=== PATIENT | female | born 1935 | race Hispanic/Latino ===

== ENCOUNTER 2024-10-20 20:00 | Emergency (ER) | payer OTHER, SELFPAY ==
[2024-10-20 20:06] VITALS: BP 186/88
[2024-10-20 21:36] LABS: % Basophils 0.4 % (0-2); % Eosinophils 0.8 % (0-6); % Immature Granulocytes 0.4 % (0-0.5); % Lymphocytes 21.8 % (20.5-51.1); % Monocytes 6.6 % (1.7-9.3); Absolute Eosinophils 0.1 10^3/uL (0-0.7); Absolute Lymphocytes 2.3 10^3/uL (1.2-3.4); Absolute Monocytes 0.7 10^3/uL (0.1-0.6); Absolute Neutrophils 7.4 10^3/uL (1.4-6.5); Hematocrit 27.1 % (37.0-47.0); Mean Corp Hgb Conc. 33.2 g/dL (33.0-37.0); Mean Corpuscular Hgb 27.4 pg (27.0-31.0); Mean Corpuscular Volume 82.4 fL (81.0-99.0); Mean Platelet Volume 10.5 fL (7.4-10.4); Nucleated Red Blood Cells % 0 %; Platelet Count 353 10^3/uL (130-400); Red Blood Cell Count 3.29 10^6/uL (4.20-5.40); Red Cell Dist. Width 13.2 % (11.5-14.5); White Blood Cell Count 10.6 10^3/uL (4.8-10.8)
[2024-10-20 21:41] LABS: APTT 28.3 Sec (23.4-35.0); INR 0.81; PT 11.7 Sec (11.4-14.6)
--- NOTE | 2024-10-20 23:48 | ED.GENMED ---
History of Present Illness
General
Chief Complaint: Rectal Bleeding
Source: patient
Exam Limitations: none
Time Seen by Provider: 10/20/24 23:11
History of Present Illness
History of Present Illness:
This is a 89 year old female that is brought in by family with c/o abd pain. Granddaughter who is interpreting states that 2 weeks ago she had blood in her stool. States that then today she vomited. States that she has just not felt herself. States
that she felt SOB, had abd pain, nausea, vomiting, diarrhea, headache, dizziness. Denies any fever, chills, chest pain, urinary burning.
Past History
Past History
ED Past Medical History: Asthma, Cancer (Leukemia), GERD, HTN, Hypercholesterolemia, NIDDM, Hypothyroidism, Psychiatric (Depression. Schizophrenia) and Other (Alzheimer's, GI bleeding, UTI, back pain, )
ED Past Surgical History: Other (EYE SURGERY)
Social History
Tobacco: Non-smoker
Alcohol: None
Drug: None
Personal:
Living: with family
Employment: Not employed
Family History
Family History: Diabetes
Review of Systems
Review of Systems
Other source history: family
All Other Systems: ROS reviewed and negative except as documented in HPI and ROS
Constitutional: Reports no symptoms; Denies fever or chills
EENT: Reports no symptoms
Respiratory: Reports trouble breathing; Denies cough
Cardiac: Reports no symptoms; Denies chest pain
ABD/GI: Reports abdominal pain, nausea, vomiting and diarrhea
: Reports no symptoms; Denies dysuria, frequency or urgency
Musculoskeletal: Reports no symptoms
Skin: Reports no symptoms
Neurological: Reports dizzy and headache
Psychiatric: Reports no symptoms
Phy Exam
General Physical Exam
General Presentation: no apparent distress
General age: appears stated age
General Skin: warm and dry
General Habitus: elderly
General Mental: alert
General Hydration: appears well hydrated
ENT Exam
ENT Exam: TM's normal, pharynx normal and neck supple
Eye Exam
Eye Exam: EOMI
Cardiovascular Exam
Cardiovascular Exam: regular rate/rhythm, no edema and normal peripheral pulses
Pulmonary Exam
Pulmonary Exam: lungs clear, no respiratory distress, no rales, chest non tender, no crackles, no rhonchi, no wheezing and no cough
Gastrointestinal Exam
Gastrointestinal Exam: normal bowel sounds, soft, no organomegaly, no pulsatile mass, non distended, tender (Generalized tenderness with palpation) and other (Stool black hem positive. )
Musculoskeletal Exam
Musculoskeletal Exam: full ROM and no edema
Skin Exam
Skin Exam: normal color, warm/dry, no rash and no petechia
Psychiatric Exam
Psychiatric Exam: normal mood/affect
Course
Orders/Labs/Results
Orders:
Orders
10/20/24 20:10
EKG [Electrocardiogram (*1)] Urgent
Reason for Study: Other
Other Reason for Exam: gi bleed
EKG- Treatment ONCE
10/20/24 21:02
Complete Blood Count/With Diff Urgent
PTT Urgent
Prothrombin Time Urgent
10/20/24 23:31
Type+Screen Urgent
BBK Wristband Number:
Comprehensive Metabolic Panel Urgent
10/20/24 23:48
Urinalysis Reflex To Culture Urgent
Date Specimen was Collected: 10/21/24
Time Specimen was Collected: 01:13
10/20/24 23:49
0.9% Sodium Chloride 500 ml [Nss] 500 ml IV BOLUS
10/20/24 23:53
Pantoprazole [Protonix IV] 80 mg IV NOW STA
10/21/24 00:00
CT Abd/pelvis W Iv Cont Urgent
Reason For Exam: Generalized abd pain
10/21/24 01:26
Urine Microscopic Reflex Cult Urgent
Urine Culture Urgent
DONAVAN Source: U
Specimen Description:
Date Specimen was Collected: 10/21/24
Time Specimen was Collected: 01:13
10/21/24 01:57
Amoxicillin 875 mg/Clav 125 mg [Augmentin 875 mg/125 mg] 1 tablet PO NOW STA
Abnormal Lab Results
10/20/24 10/20/24 10/21/24
21:02 23:31 01:26
RBC 3.29 L 10^6/uL
(4.20-5.40)
Hgb 9.0 L g/dL
(12.0-16.0)
Hct 27.1 L %
(37.0-47.0)
MPV 10.5 H fL
(7.4-10.4)
Absolute Neuts (auto) 7.4 H 10^3/uL
(1.4-6.5)
Absolute Monos (auto) 0.7 H 10^3/uL
(0.1-0.6)
Glucose 163 H mg/dl
(70-99)
Leukocyte Esterase Rfl 2+ A
(Negative)
Urine WBC (Reflex) 21-25 A /HPF
(0-5)
Urine Bacteria (Reflex) Moderate A
(Negative)
Urine Albumin (Reflex) 1+ A
(Neg - Trace)
10/20/24 21:02
10/20/24 23:31
H/H low when compared with prior labs that were done in 2022, P1 11.7 with INR 0.81, PTT 28.3
Vital Signs
Initial and Last Documented VS:
Initial Vital Signs
Temp Pulse Resp BP Pulse Ox
98.2 F 92 16 186/88 98
10/20/24 20:06 10/20/24 20:06 10/20/24 20:06 10/20/24 20:06 10/20/24 20:06
Last Documented Vital Signs
Temp Pulse Resp BP Pulse Ox
98.7 F 108 17 152/88 95
10/21/24 02:23 10/21/24 02:23 10/21/24 02:23 10/21/24 02:23 10/21/24 02:23
MDM/Problems Addressed
Differential Diagnosis Includes:
Colitis. Gi bleeding. Diverticulitis.
MDM/Problems Addressed:
This is a 89 year old female that is brought in by family with c/o abd pain and just not feeling herself. States that 2 weeks ago she had blood in her stool. Then today she vomited and has had diarrhea, headache and dizziness.
Will check labs. CT scan. Will given Protonix.
back into see patient and granddaughter. Explained that the CT shows that she has diverticulitis. Will place patient on Augmentin. Will also give patient Protonix to help with any stomach irritation as the granddaughter state that she uses Advil or
Ibuprofen a lot. Encouraged them to only use Tylenol and follow up with the family doctor and her GI specialist for further evaluation. Patient to return with increased bleeding, abd pain, or any other concerns.
Chronic conditions affecting care: DM and Cancer
Acute Exacerbation and/or Progression of Chronic Illness:
GI bleeding
*Radiology
Radiology exam reviewed: radiology read reviewed (CT night hawk- Mild acute diveritculitis in the inferior descending colon. No perforation or abscess. Normal appendix. No calcified gallstones. No bowel obstruction or bowel wall thickening. No
obstructive urolithiasis. No free fluid nor free air. )
*Pulse Oximetry
Patient hypoxic: no
*EKG
Interpreted by ED Provider?: Yes
Heart Rate: 102
Rate: tachycardiac
Rhythm: sinus
Stratton: left axis deviation
Interval: normal interval
QRS Pattern: normal QRS
Ischemia: no ischemia
*State Attorney Interpretation
Rate: State Attorney- N/A
*Critical Care Note
Total Time (30-74mins, 75-104mins- exclusive of procedures): Not Applicable
ED Attending Note
-
Portions of this chart may have been created with voice recognition software.� Occasional wrong word or��sound alike� substitutions may have occurred due to the inherent limitations of voice recognition software.
Discharge Plan
Departure
Patient Disposition: Home (Routine Discharge)
Date of Disposition: 10/21/24
Time of Disposition: 02:02
Patient with high blood pressure during this ER visit?: Yes
Condition: Good
Covid-19: Not Applicable
Discharge Problem:
Diverticulitis, Hematest positive stools
Instructions: Bloody Stools, Adult ED, Diverticulitis - Discharge instructions, BLOOD PRESSURE
Prescriptions:
New
amoxicillin-pot clavulanate 875-125 mg tablet
1 tab PO BID Qty: 19 0RF
pantoprazole [Protonix] 40 mg tablet,delayed release (DR/EC)
40 mg PO DAILY Qty: 30 0RF
No Action
insulin glargine [Lantus U-100 Insulin] 100 UNITS/1 ML solution
10 units SC HS
Patient Comments:
hold less than 150
divalproex 500 MG tablet,delayed release (DR/EC)
500 mg PO HS
acetaminophen 325 MG tablet
650 mg PO DAILYPRN PRN (Reason: mild pain)
risperidone 2 MG tablet
2 mg PO HS
metformin 1,000 MG tablet
1,000 mg PO BID@0800,1700
fluticasone propion-salmeterol 1 DISK blister with device
1 puff inhalation R BID
albuterol sulfate 1 PUFF HFA aerosol inhaler
2 puff inhalation R Q4HPRN PRN (Reason: sob)
risperidone 1 MG tablet
1 mg PO DAILY
levothyroxine 25 MCG tablet
25 mcg PO DAILY AT 0700 Qty: 30 0RF
albuterol sulfate 2.5 MG/3 ML solution for nebulization
2.5 mg inhalation R Q4HPRN PRN (Reason: SOB/wheeze)
acetaminophen [Tylenol Arthritis] 650 MG tablet extended release
650 mg PO HS
furosemide 20 MG tablet
10 mg PO DAILY 0RF
cephalexin 500 mg capsule
500 mg PO BID 7 Days Qty: 14 0RF
amoxicillin-pot clavulanate 875-125 mg tablet
1 tab PO BID Qty: 20 0RF
Referrals:
Raj Holt MD [Family Provider] - Follow up in 2-3 days
Activity Restrictions/Additional Instructions:
As discussed, your blood work shows that your Hemiglobin is a little low. Your CT shows that you have Diverticulitis. You have been given an antibiotic here and a prescription has been sent to your pharmacy to treat the Diverticulitis. Your stool is
black which means that there is some bleeding higher up in the intestinal tract. Please stop any Advil or Aspirin use as this is irritating to the stomach lining. Tylenol 1000mg every 6 hours if needed for any pain. The second prescription that is
at the Pharmacy will be for Protonix which will coat the stomach lining. PLEASE FOLLOW UP WITH THE FAMILY DOCTOR AND THE GI SPECIALIST FOR FURTHER EVALUATION. IF YOU HAVE INCREASED OR CHANGING PAIN, OR YOU HAVE ANY OTHER CONCERNS PLEASE RETURN TO
THE EMERGENCY ROOM
Interventions
Interventions:
*Risk Screen - Suicide Last Done: 10/20/24 20:06
*Neglect/Abuse Screening Last Done: 10/20/24 20:06
ED- Fall Risk Assessment Last Done: 10/21/24 02:23
*Nursing Disposition Last Done: 10/21/24 02:23
LO-Iwpclw-Oeczjewyfu Assessment Last Done: 10/20/24 23:46
ED- Cardiac Assessment Last Done: 10/20/24 23:46
ED- Pulmonary Assessment Last Done: 10/21/24 00:45
Discharge Date and Time
Discharge Date/Time: 10/21/24 02:25
Print Language: MOSOTHO
[2024-10-20 23:59] LABS: ALT (SGPT) 15 U/L (0-35); AST (SGOT) 21 U/L (14-36); Albumin 4.1 g/dl (3.5-5.0); Alkaline Phosphatase 108 U/L (38-126); Blood Urea Nitrogen 11 mg/dl (7-17); Calcium 9.7 mg/dl (8.4-10.2); Carbon Dioxide 26 mmol/L (22-30); Chloride 100 mmol/L (98-107); Glucose 163 mg/dl (70-99); Potassium 4.4 mmol/L (3.5-5.1); Sodium 137 mmol/L (135-145); Total Bilirubin 0.3 mg/dl (0.2-1.3); Total Protein 6.9 g/dl (6.3-8.2); eGFR > 60.00
[2024-10-21] MEDS: PROTONIX IV 80 MG IV (00:05)
[2024-10-21] MEDS: NSS 500 IV (00:21)
[2024-10-21 00:24] VITALS: BP 138/94
[2024-10-21 01:39] LABS: Urine Albumin 1+ (Neg - Trace); Urine Bilirubin Negative (Negative); Urine Character Slightly Cloudy (Clear); Urine Color Yellow; Urine Glucose Negative (Negative); Urine Ketone Negative (Negative); Urine Leukocyte 2+ (Negative); Urine Nitrite Negative (Negative); Urine Occult Blood Negative (Negative); Urine Urobilinogen Negative (Neg - 1+)
[2024-10-21] MEDS: AUGMENTIN 875 MG/125 MG 1 TABLET PO (02:08)
[2024-10-21 02:23] VITALS: BP 152/88
[2024-10-21 03:48] LABS: Urine Bacteria Moderate (Negative); Urine Red Blood Cell 0-2 /HPF (0-2); Urine White Cell 21-25 /HPF (0-5)
== END 2024-10-21 02:25 | disposition home or self-care (01) ==
LOC: EMR 20:00
PROVIDERS: Clinical Nurse Specialist Family Health; Emergency Medicine; EMERGENCY PHYSICIAN Emergency Medicine; FAMILY PHYSICIAN Family Medicine
DX: K57.33 Diverticulitis of large intestine without perforation or abscess with bleeding (principal); E03.9 Hypothyroidism, unspecified; E11.9 Type 2 diabetes mellitus without complications; E78.00 Pure hypercholesterolemia, unspecified; G30.9 Alzheimer's disease, unspecified; F02.80 Dementia in other diseases classified elsewhere, unspecified severity, without behavioral disturbance, psychotic disturbance, mood disturbance, and anxiety; I10 Essential (primary) hypertension; J45.909 Unspecified asthma, uncomplicated; K21.9 Gastro-esophageal reflux disease without esophagitis
CPT/HCPCS: 96374; 96361; 99284; 74177; 80053; 81003; 81015; 85025; 85610; 85730; 86850; 86900; 86901; 87077; 87086; 87186; 93005; Q9967

== ENCOUNTER 2024-11-01 15:59 | Emergency (ER) | payer OTHER, SELFPAY ==
[2024-11-01 16:03] VITALS: BP 191/101
--- NOTE | 2024-11-01 16:09 | ED.GENMED ---
ED Provider Triage
<YO Quintana - Last Filed: 11/01/24 16:12>
-
Patient seen by provider in Triage?: Seen in Triage
Attestation: A medical screening examination has been initiated by a qualified medical provider. Based on the assessment performed at this time, it has been determined that an emergent medical condition may exist and the patient has been informed
that further medical evaluation and possible additional diagnostic testing may be needed.
HPI: Patient is an 89-year-old female brought by son for nausea/vomiting /diarrhea at least 10 x each. Unable to tolerate water. Pt lives with son, no other sick contacts. mild abd cramping. denies any urinary frequency urgency dysuria. no fever
GENERAL: Alert , in no apparent distress
EYE: No visual abnormalities.
NECK: Trachea midline
ENT: No visible abnormalities.
LUNGS: No acute respiratory distress
NEUROLOGICAL: Alert and oriented
SKIN: Skin intact. No visible changes.
MUSCULOSKELETAL: Moving extremities normally
PSYCH: Normal and appropriate interaction.
This is a medical evaluation conducted in person to initiate diagnostic evaluation and provide initial therapeutics. Please see further documentation by the treating clinician.
History of Present Illness
<YO Quintana - Last Filed: 11/01/24 16:12>
General
Chief Complaint: Abdominal Symptoms
Time Seen by Provider: 11/01/24 20:50
<YO Garcia - Last Filed: 11/02/24 00:32>
General
Source: patient, family (Son) and tier in (Language line)
Exam Limitations: other (Language barrier)
History of Present Illness
History of Present Illness:
This is a 89 year old female that is brought in by family with c/o abd pain and diarrhea. States that this started 2 days ago. States that she had a fever yesterday with chills, is SOB, has abd pain with nausea, vomiting and diarrhea. Has a headache
with occasional dizziness. Denies any chest pain, urinary burning.
Past History
<YO Quintana - Last Filed: 11/01/24 16:12>
Past History
ED Past Medical History: Asthma, Cancer (Leukemia), GERD, HTN, Hypercholesterolemia, NIDDM, Hypothyroidism, Psychiatric (Depression. Schizophrenia) and Other (Alzheimer's, GI bleeding, UTI, back pain, )
ED Past Surgical History: Other (EYE SURGERY)
Social History
Tobacco: Non-smoker
Alcohol: None
Drug: None
Personal:
Living: with family
Employment: Not employed
Family History
Family History: Diabetes
Review of Systems
<YO Garcia - Last Filed: 11/02/24 00:32>
Review of Systems
All Other Systems: ROS reviewed and negative except as documented in HPI and ROS
Constitutional: Reports fever (Yesterday) and chills
EENT: Reports no symptoms
Respiratory: Reports trouble breathing; Denies cough
Cardiac: Reports no symptoms; Denies chest pain
ABD/GI: Reports abdominal pain, nausea, vomiting and diarrhea
: Reports no symptoms; Denies urgency
Musculoskeletal: Reports no symptoms
Skin: Reports no symptoms
Neurological: Reports dizzy, headache and weakness
Psychiatric: Reports no symptoms
Phy Exam
<YO Garcia - Last Filed: 11/02/24 00:32>
General Physical Exam
General Presentation: no apparent distress
General age: appears stated age
General Skin: warm and dry
General Habitus: elderly
General Mental: usual mental status
General Hydration: dry mucous membranes
ENT Exam
ENT Exam: TM's normal, pharynx normal and neck supple
Eye Exam
Eye Exam: EOMI
Cardiovascular Exam
Cardiovascular Exam: regular rate/rhythm, no edema and normal peripheral pulses
Pulmonary Exam
Pulmonary Exam: lungs clear, no respiratory distress, no rales, chest non tender, no crackles, no rhonchi, no wheezing and no cough
Gastrointestinal Exam
Gastrointestinal Exam: soft, no organomegaly, no pulsatile mass, tender (Lower abd tenderness with palpation) and other (Hypoactive bowel sounds)
Musculoskeletal Exam
Musculoskeletal Exam: full ROM and no edema
Skin Exam
Skin Exam: normal color, warm/dry, no rash and no petechia
Psychiatric Exam
Psychiatric Exam: normal mood/affect
Course
<YO Quintana - Last Filed: 11/01/24 16:12>
Orders/Labs/Results
Orders:
Orders
11/01/24 21:00
Complete Blood Count/With Diff Urgent
Comprehensive Metabolic Panel Urgent
Lipase Urgent
11/01/24 21:18
CT Abd/pel W Iv And Oral Contr Urgent
Comment:
Reason For Exam: lOWER ABD PAIN
0.9% Sodium Chloride 1000 ml [Nss] 1,000 ml IV BOLUS
Iohexol [Omnipaque] See Protocol PO NOW STA
CR Chest - 2 Views Urgent
Comment:
Reason For Exam: sob
11/01/24 21:26
Electrocardiogram (*1) Urgent
Reason for Study: Shortness of Breath
EKG- Treatment ONCE
11/01/24 21:52
COVID-19 Antigen Urgent
Source: Nasal Swab
Troponin I Urgent
11/01/24 22:16
UA Reflex to Culture [Urinalysis Reflex To Culture] Urgent
Date Specimen was Collected: 11/01/24
Time Specimen was Collected: 22:15
Urine Microscopic Reflex Cult Urgent
Urine Culture Urgent
DONAVAN Source: U
Specimen Description:
Date Specimen was Collected: 11/01/24
Time Specimen was Collected: 22:15
11/01/24 23:06
Ondansetron Injectable [Zofran] 4 mg .ROUTE .STK-MED ONE
11/01/24 23:07
CefTRIAXone [Rocephin] 1,000 mg IV NOW STA
11/01/24 23:08
Ondansetron Injectable [Zofran] 4 mg IV NOW STA
Abnormal Lab Results
11/01/24 11/01/24
21:00 22:16
RBC 3.34 L 10^6/uL
(4.20-5.40)
Hgb 8.8 L g/dL
(12.0-16.0)
Hct 27.0 L %
(37.0-47.0)
MCV 80.8 L fL
(81.0-99.0)
MCH 26.3 L pg
(27.0-31.0)
MCHC 32.6 L g/dL
(33.0-37.0)
MPV 10.9 H fL
(7.4-10.4)
Absolute Monos (auto) 0.9 H 10^3/uL
(0.1-0.6)
Chloride 97 L mmol/L
(98-107)
Carbon Dioxide 31 H mmol/L
(22-30)
BUN 6 L mg/dl
(7-17)
Glucose 157 H mg/dl
(70-99)
Leukocyte Esterase Rfl 2+ A
(Negative)
Urine WBC (Reflex) 80-90 A /HPF
(0-5)
Urine Bacteria (Reflex) Moderate A
(Negative)
Urine Albumin (Reflex) 1+ A
(Neg - Trace)
11/01/24 21:00
11/01/24 21:00
Vital Signs
Initial and Last Documented VS:
Initial Vital Signs
Temp Pulse Resp BP Pulse Ox
99.4 F 90 18 191/101 99
11/01/24 16:03 11/01/24 16:03 11/01/24 16:03 11/01/24 16:03 11/01/24 16:03
Last Documented Vital Signs
Temp Pulse Resp BP Pulse Ox
99.4 F 90 18 157/79 95
11/01/24 16:03 11/01/24 16:03 11/01/24 16:03 11/02/24 00:00 11/01/24 23:04
<YO Garcia - Last Filed: 11/02/24 00:32>
Orders/Labs/Results
Orders:
Orders
11/01/24 21:00
Complete Blood Count/With Diff Urgent
Comprehensive Metabolic Panel Urgent
Lipase Urgent
11/01/24 21:18
CT Abd/pel W Iv And Oral Contr Urgent
Comment:
Reason For Exam: lOWER ABD PAIN
0.9% Sodium Chloride 1000 ml [Nss] 1,000 ml IV BOLUS
Iohexol [Omnipaque] See Protocol PO NOW STA
CR Chest - 2 Views Urgent
Comment:
Reason For Exam: sob
11/01/24 21:26
Electrocardiogram (*1) Urgent
Reason for Study: Shortness of Breath
EKG- Treatment ONCE
11/01/24 21:52
COVID-19 Antigen Urgent
Source: Nasal Swab
Troponin I Urgent
11/01/24 22:16
UA Reflex to Culture [Urinalysis Reflex To Culture] Urgent
Date Specimen was Collected: 11/01/24
Time Specimen was Collected: 22:15
Urine Microscopic Reflex Cult Urgent
Urine Culture Urgent
DONAVAN Source: U
Specimen Description:
Date Specimen was Collected: 11/01/24
Time Specimen was Collected: 22:15
11/01/24 23:06
Ondansetron Injectable [Zofran] 4 mg .ROUTE .STK-MED ONE
11/01/24 23:07
CefTRIAXone [Rocephin] 1,000 mg IV NOW STA
11/01/24 23:08
Ondansetron Injectable [Zofran] 4 mg IV NOW STA
Abnormal Lab Results
11/01/24 11/01/24
21:00 22:16
RBC 3.34 L 10^6/uL
(4.20-5.40)
Hgb 8.8 L g/dL
(12.0-16.0)
Hct 27.0 L %
(37.0-47.0)
MCV 80.8 L fL
(81.0-99.0)
MCH 26.3 L pg
(27.0-31.0)
MCHC 32.6 L g/dL
(33.0-37.0)
MPV 10.9 H fL
(7.4-10.4)
Absolute Monos (auto) 0.9 H 10^3/uL
(0.1-0.6)
Chloride 97 L mmol/L
(98-107)
Carbon Dioxide 31 H mmol/L
(22-30)
BUN 6 L mg/dl
(7-17)
Glucose 157 H mg/dl
(70-99)
Leukocyte Esterase Rfl 2+ A
(Negative)
Urine WBC (Reflex) 80-90 A /HPF
(0-5)
Urine Bacteria (Reflex) Moderate A
(Negative)
Urine Albumin (Reflex) 1+ A
(Neg - Trace)
11/01/24 21:00
11/01/24 21:00
H/H low but very slight change from prior labs, Anemia, Chloride slightly low hyperglycemia. Urine positive for infection
Vital Signs
Initial and Last Documented VS:
Initial Vital Signs
Temp Pulse Resp BP Pulse Ox
99.4 F 90 18 191/101 99
11/01/24 16:03 11/01/24 16:03 11/01/24 16:03 11/01/24 16:03 11/01/24 16:03
Last Documented Vital Signs
Temp Pulse Resp BP Pulse Ox
99.4 F 90 18 157/79 95
11/01/24 16:03 11/01/24 16:03 11/01/24 16:03 11/02/24 00:00 11/01/24 23:04
<YO Garcia - Last Filed: 11/02/24 00:32>
MDM/Problems Addressed
Differential Diagnosis Includes:
COVID, Colitis, Diverticulitis
MDM/Problems Addressed:
This is a 89 year old female that comes in with vomiting, diarrhea and abd pain. States that she is also SOB. Via the Language line son states that this started 2 days ago. Patient is very weak that she can hardly stand up.
Will check labs, CT abd/pelvis, chest x-ray and give IV fluids
Back into see patient and family. Reviewed CT scan. Will place patient on Levaquin and Flagyl and this will treat the UTI and the Diverticulitis. Patient has an appointment with the GI specialist in December. Patient to return with any Concerns.
Chronic conditions affecting care: DM and Cancer
<YO Garcia - Last Filed: 11/02/24 00:32>
*Radiology
Radiology exam reviewed: preliminary read by ED provider (Chest- Negative for active disease), radiology read reviewed (CT night hawk- Likely tace uncoplicated sigmoid diverticulitis (series 201 image 61), No bowel obstruction. Normal gallbladder
and appendix. Incidentals: No obstruactive uropathy. NO hepatic or pancreatic mass. No abdominal aortic aneurysm. NO acute osseous abnormality. NO acute abnormality within) and other (CT cont-with in the visualized lungs. NO acute abnormality within
the visualized soft tissues. )
*Pulse Oximetry
Patient hypoxic: no
*Critical Care Note
Total Time (30-74mins, 75-104mins- exclusive of procedures): Not Applicable
ED Attending Note
<YO Quintana - Last Filed: 11/01/24 16:12>
-
Portions of this chart may have been created with voice recognition software.� Occasional wrong word or��sound alike� substitutions may have occurred due to the inherent limitations of voice recognition software.
Discharge Plan
Departure
Patient Disposition: Home (Routine Discharge)
Date of Disposition: 11/02/24
Time of Disposition: 00:23
Patient with high blood pressure during this ER visit?: Yes
Condition: Good
Covid-19: Not Applicable
Discharge Problem:
Urinary tract infection, Diverticulitis
Instructions: Diverticulitis - Discharge instructions, Urinary tract infection in adults - ED discharge instructions, BLOOD PRESSURE
Prescriptions:
New
levofloxacin 500 mg tablet
500 mg PO DAILY 7 Days Qty: 7 0RF
metronidazole 500 mg tablet
500 mg PO TID Qty: 21 0RF
ondansetron 4 mg tablet,disintegrating
4 mg PO Q8H PRN (Reason: nausea and vomiting) Qty: 10 0RF
No Action
insulin glargine [Lantus U-100 Insulin] 100 UNITS/1 ML solution
10 units SC HS
Patient Comments:
hold less than 150
divalproex 500 MG tablet,delayed release (DR/EC)
500 mg PO HS
acetaminophen 325 MG tablet
650 mg PO DAILYPRN PRN (Reason: mild pain)
risperidone 2 MG tablet
2 mg PO HS
metformin 1,000 MG tablet
1,000 mg PO BID@0800,1700
fluticasone propion-salmeterol 1 DISK blister with device
1 puff inhalation R BID
albuterol sulfate 1 PUFF HFA aerosol inhaler
2 puff inhalation R Q4HPRN PRN (Reason: sob)
risperidone 1 MG tablet
1 mg PO DAILY
levothyroxine 25 MCG tablet
25 mcg PO DAILY AT 0700 Qty: 30 0RF
albuterol sulfate 2.5 MG/3 ML solution for nebulization
2.5 mg inhalation R Q4HPRN PRN (Reason: SOB/wheeze)
acetaminophen [Tylenol Arthritis] 650 MG tablet extended release
650 mg PO HS
furosemide 20 MG tablet
10 mg PO DAILY 0RF
cephalexin 500 mg capsule
500 mg PO BID 7 Days Qty: 14 0RF
amoxicillin-pot clavulanate 875-125 mg tablet
1 tab PO BID Qty: 20 0RF
amoxicillin-pot clavulanate 875-125 mg tablet
1 tab PO BID Qty: 19 0RF
pantoprazole [Protonix] 40 mg tablet,delayed release (DR/EC)
40 mg PO DAILY Qty: 30 0RF
Referrals:
Raj Holt MD [Family Provider] - Follow up in 5-7 days
Activity Restrictions/Additional Instructions:
As discussed, your blood work shows that you are anemic. You are COVID negative and your Troponin which is specific for the heart is normal. Chest x-ray is normal. You do have a urinary tract infection and your CT shows that there is still slight
Diverticulitis. You have been given an IV antibiotic here. You have had 3 prescription sent to your pharmacy. Please take the antibiotics as directed. The Zofran you can use for any nausea/vomiting. Please follow up with the family doctor in the
next 5-7 days. IF YOU HAVE INCREASED OR CHANGING PAIN, VOMITING THAT IS NOT CONTROLLED OR YOU HAVE ANY OTHER CONCERNS PLEASE RETURN TO THE EMERGENCY ROOM.
Interventions
Interventions:
*Risk Screen - Suicide Last Done: 11/01/24 16:03
*General Assessment Last Done: 11/01/24 16:03
*Neglect/Abuse Screening Last Done: 11/01/24 16:03
*ED COVID-19 Vaccine History Last Done: 11/01/24 20:46
AR-Rqyzqc-Abcgsglefu Assessment Last Done: 11/01/24 20:44
Discharge Date and Time
Print Language: LAO
[2024-11-01 20:46] VITALS: BMI 26.5
[2024-11-01 21:00] VITALS: BP 188/78
[2024-11-01 21:08] LABS: % Basophils 0.4 % (0-2); % Eosinophils 1.2 % (0-6); % Immature Granulocytes 0.2 % (0-0.5); % Lymphocytes 23.9 % (20.5-51.1); % Monocytes 9.1 % (1.7-9.3); % Neutrophils 65.2 % (42.2-75.2); Absolute Eosinophils 0.1 10^3/uL (0-0.7); Absolute Lymphocytes 2.3 10^3/uL (1.2-3.4); Absolute Monocytes 0.9 10^3/uL (0.1-0.6); Absolute Neutrophils 6.3 10^3/uL (1.4-6.5); Hemoglobin 8.8 g/dL (12.0-16.0); Mean Corp Hgb Conc. 32.6 g/dL (33.0-37.0); Mean Corpuscular Hgb 26.3 pg (27.0-31.0); Mean Corpuscular Volume 80.8 fL (81.0-99.0); Mean Platelet Volume 10.9 fL (7.4-10.4); Nucleated Red Blood Cells % 0 %; Platelet Count 344 10^3/uL (130-400); Red Blood Cell Count 3.34 10^6/uL (4.20-5.40); Red Cell Dist. Width 13.5 % (11.5-14.5); White Blood Cell Count 9.7 10^3/uL (4.8-10.8)
[2024-11-01 21:40] LABS: ALT (SGPT) 14 U/L (0-35); AST (SGOT) 21 U/L (14-36); Albumin 4.1 g/dl (3.5-5.0); Alkaline Phosphatase 97 U/L (38-126); Blood Urea Nitrogen 6 mg/dl (7-17); Calcium 9.5 mg/dl (8.4-10.2); Carbon Dioxide 31 mmol/L (22-30); Chloride 97 mmol/L (98-107); Estimated Creatinine Clearance 46 ml/min; Glucose 157 mg/dl (70-99); Lipase 126 U/L (23-300); Potassium 4.3 mmol/L (3.5-5.1); Sodium 135 mmol/L (135-145); Total Bilirubin 0.3 mg/dl (0.2-1.3); eGFR > 60.00
[2024-11-01] MEDS: OMNIPAQUE 50 ML PO (21:52)
[2024-11-01] MEDS: NSS 1000 IV (21:52)
[2024-11-01 22:23] LABS: COVID-19 Antigen Negative (Negative)
[2024-11-01 22:23] LABS: Urine Albumin 1+ (Neg - Trace); Urine Bilirubin Negative (Negative); Urine Character Clear (Clear); Urine Color Yellow; Urine Glucose Negative (Negative); Urine Ketone Negative (Negative); Urine Leukocyte 2+ (Negative); Urine Nitrite Negative (Negative); Urine Occult Blood Negative (Negative); Urine Urobilinogen Negative (Neg - 1+)
[2024-11-01 22:30] LABS: Urine Red Blood Cell 0-2 /HPF (0-2)
[2024-11-01 22:31] LABS: Urine Bacteria Moderate (Negative); Urine White Cell 80-90 /HPF (0-5)
[2024-11-01 22:35] LABS: Troponin I 0.029 ng/ml
[2024-11-01 23:04] VITALS: BP 157/96
[2024-11-01] MEDS: ROCEPHIN 1000 MG IV (23:09)
[2024-11-01] MEDS: ZOFRAN 4 MG IV (23:09)
[2024-11-02] VITALS: BP 157/79
== END 2024-11-02 00:39 | disposition home or self-care (01) ==
LOC: EMR 15:59
PROVIDERS: Clinical Nurse Specialist Family Health; Emergency Medicine; Nurse Practitioner; EMERGENCY PHYSICIAN Emergency Medicine; FAMILY PHYSICIAN Family Medicine
DX: K57.32 Diverticulitis of large intestine without perforation or abscess without bleeding (principal); N39.0 Urinary tract infection, site not specified; E11.9 Type 2 diabetes mellitus without complications; E78.00 Pure hypercholesterolemia, unspecified; G30.9 Alzheimer's disease, unspecified; F02.80 Dementia in other diseases classified elsewhere, unspecified severity, without behavioral disturbance, psychotic disturbance, mood disturbance, and anxiety; I10 Essential (primary) hypertension; J45.909 Unspecified asthma, uncomplicated; K21.9 Gastro-esophageal reflux disease without esophagitis; E03.9 Hypothyroidism, unspecified
CPT/HCPCS: 99285; 96374; 96375; 96361; 71046; 74177; 80053; 81003; 81015; 83690; 84484; 85025; 87077; 87086; 87186; 87811; 93005; Q9967

== ENCOUNTER 2024-11-04 04:13 | Inpatient (IN) | payer OTHER, SELFPAY ==
[2024-11-04] VITALS (27 sets, daily range): BP systolic 141–216; BP diastolic 51–127; BMI 28.9
[2024-11-04 01:47] LABS: % Basophils 0.3 % (0-2); % Eosinophils 0.6 % (0-6); % Immature Granulocytes 0.4 % (0-0.5); % Lymphocytes 20.4 % (20.5-51.1); % Monocytes 9.8 % (1.7-9.3); % Neutrophils 68.5 % (42.2-75.2); Absolute Eosinophils 0.1 10^3/uL (0-0.7); Absolute Neutrophils 6.7 10^3/uL (1.4-6.5); Hematocrit 22.2 % (37.0-47.0); Hemoglobin 7.2 g/dL (12.0-16.0); Mean Corp Hgb Conc. 32.4 g/dL (33.0-37.0); Mean Corpuscular Hgb 25.8 pg (27.0-31.0); Mean Corpuscular Volume 79.6 fL (81.0-99.0); Nucleated Red Blood Cells % 0 %; Platelet Count 283 10^3/uL (130-400); Red Blood Cell Count 2.79 10^6/uL (4.20-5.40); Red Cell Dist. Width 13.6 % (11.5-14.5); White Blood Cell Count 9.7 10^3/uL (4.8-10.8)
[2024-11-04 02:01] LABS: INR 1.04; PT 13.9 Sec (11.4-14.6)
[2024-11-04 02:02] LABS: ALT (SGPT) 19 U/L (0-35); AST (SGOT) 29 U/L (14-36); Albumin 3.8 g/dl (3.5-5.0); Alkaline Phosphatase 77 U/L (38-126); Blood Urea Nitrogen 11 mg/dl (7-17); Calcium 8.6 mg/dl (8.4-10.2); Carbon Dioxide 28 mmol/L (22-30); Chloride 88 mmol/L (98-107); Estimated Creatinine Clearance 42 ml/min; Glucose 168 mg/dl (70-99); Potassium 4.6 mmol/L (3.5-5.1); Sodium 123 mmol/L (135-145); Total Bilirubin 0.4 mg/dl (0.2-1.3); Total Protein 6.4 g/dl (6.3-8.2); eGFR > 60.00
[2024-11-04 02:03] LABS: APTT 30.1 Sec (23.4-35.0)
[2024-11-04 02:13] LABS: NT-proBNP 4620 pg/ml; Troponin I 0.061 ng/ml
--- NOTE | 2024-11-04 02:17 | ED.GENMED ---
History of Present Illness
General
Chief Complaint: Urinary Symptoms
Source: patient and family
Exam Limitations: none
Time Seen by Provider: 11/04/24 02:05
History of Present Illness
History of Present Illness:
See MDM
Past History
Past History
ED Past Medical History: Asthma, Cancer (Leukemia), GERD, HTN, Hypercholesterolemia, NIDDM, Hypothyroidism, Psychiatric (Depression. Schizophrenia) and Other (Alzheimer's, GI bleeding, UTI, back pain, )
ED Past Surgical History: Other (EYE SURGERY)
Social History
Tobacco: Non-smoker
Alcohol: None
Drug: None
Personal:
Living: with family
Employment: Not employed
Family History
Family History: Diabetes
Phy Exam
Physical Exam
Physical Exam:
See MDM
Sepsis
Sepsis Screening
Sepsis Assessment: Sepsis Ruled Out
Sepsis Screen
Sepsis Screen: Sepsis Ruled Out
Date: 11/04/24
Time: 02:27
Course
Orders/Labs/Results
Orders:
Orders
11/04/24 00:38
ECG [Electrocardiogram (*1)] Urgent
Reason for Study: Chest Pain
11/04/24 00:39
EKG- Treatment ONCE
11/04/24 01:25
Complete Blood Count/With Diff Urgent
Comprehensive Metabolic Panel Urgent
NT-proBNP Urgent
Troponin I Urgent
11/04/24 01:33
Type+Screen Urgent
PTT Urgent
Prothrombin Time Urgent
11/04/24 02:15
Blood Bank Products [* Blood Bank Products] Urgent
'barb Orders: Vinod Romero DO
Blood Bank Products: *Packed RBC Leuko(PRBC's)
Quantity: 2
Transfuse Today: Yes
Reason: Bleeding
Ipratropium/Albuterol Sulfate [Duoneb] 3 ml INH R NOW ONE
CR Chest Portable - 1 View Urgent
Comment:
Reason For Exam: dyspnea
Reason Study Needs to be Portable: Patient Unstable
11/04/24 02:16
CT Abd/pelvis W Iv Cont Urgent
Comment:
Reason For Exam: abd pain, lower GI bleed
11/04/24 02:23
Furosemide [Lasix] 40 mg IV NOW STA
Abnormal Lab Results
11/04/24
01:25
RBC 2.79 L 10^6/uL
(4.20-5.40)
Hgb 7.2 L g/dL
(12.0-16.0)
Hct 22.2 L %
(37.0-47.0)
MCV 79.6 L fL
(81.0-99.0)
MCH 25.8 L pg
(27.0-31.0)
MCHC 32.4 L g/dL
(33.0-37.0)
MPV 11.0 H fL
(7.4-10.4)
Absolute Neuts (auto) 6.7 H 10^3/uL
(1.4-6.5)
Absolute Monos (auto) 1.0 H 10^3/uL
(0.1-0.6)
Lymphocytes % 20.4 L %
(20.5-51.1)
Monocytes % 9.8 H %
(1.7-9.3)
Sodium 123 L D mmol/L
(135-145)
Chloride 88 L mmol/L
(98-107)
Glucose 168 H mg/dl
(70-99)
Troponin I 0.061 H* ng/ml
11/04/24 01:25
11/04/24 01:25
Vital Signs
Initial and Last Documented VS:
Initial Vital Signs
Pulse Resp BP Pulse Ox
94 28 216/102 88
11/04/24 00:34 11/04/24 00:34 11/04/24 00:34 11/04/24 00:34
Last Documented Vital Signs
Pulse Resp BP Pulse Ox
95 28 202/124 98
11/04/24 02:00 11/04/24 02:00 11/04/24 02:00 11/04/24 02:00
MDM/Problems Addressed
Differential Diagnosis Includes:
HPI and MDM Narrative:
89-year-old female presenting with family for evaluation of generalized weakness and fatigue. Family states this is her third visit for the same thing. She is currently on antibiotics for UTI. However, family states that she looks pale and she
is complaining of abdominal and chest pain. Blood work was done prior to my evaluation and patient has evidence of worsening anemia. Family states that she has been developing bright red rectal bleeding. She is not on blood thinners. Patient now
requiring oxygen. Blood work is concerning for an elevated troponin and BNP. I am concerned about symptomatic anemia causing ischemia. Family signed consent for blood transfusion. Will obtain chest x-ray and CT abdomen/pelvis but ultimately will
admit
Physical exam
General: Mildly uncomfortable
HEENT: protecting airway
Neck: appears supple
CV: No evidence of cyanosis. Regular rate and rhythm
Resp: No accessory muscle use. Poor air exchange
Abd: Non-distended. Mild general tenderness without rebound
Extremities: No deformities
Neuro: alert
Psych: Normal affect
Skin: Pale
Problems Addressed including Acute and Chronic Conditions affecting care:
1. Symptomatic anemia
Acuity: acute
Prognosis: unstable
Details: Family signed consent for blood transfusion
2. Hypoxia
Acuity: acute
Prognosis: stable
Details: Likely in the setting of symptomatic anemia. Will obtain chest x-ray. Will give DuoNeb
3. Abdominal pain
Acuity: acute
Prognosis: stable
Details: Given concern for GI bleeding, will obtain CT abdomen/pelvis
Updates
Chest x-ray concerning for pulmonary edema. Troponin and BNP are both elevated. This is likely from ischemic injury from hypoxia from symptomatic anemia. Patient not given aspirin given the active bleed. Patient given IV Lasix
Differential Diagnosis (but not limited to): Diverticulosis, gastritis, colitis
Testing considered: Urinalysis
Drug therapy (if applicable): OTC meds, please see d/c instruction regarding Rx drugs
Amount and/or Complexity of Data Reviewed
Clinical info obtained from: Patient and granddaughter
External data reviewed: Recent evaluation and started on antibiotics for UTI
Labs I independently reviewed (but not limited to): Anemia, elevated BNP and troponin
Radiology: X-ray independently reviewed: Chest x-ray concerning for pulmonary edema
Pulse Ox: not hypoxic
EKG independently reviewed: Sinus rhythm, normal axis, no STEMI
Calciner Operator: Sinus rhythm
Critical Care: The high probability of a clinically significant, sudden or life threatening deterioration of the cardiovascular/GI system(s) required my full and direct attention, intervention and personal management. The aggregate critical care
time was 35 minutes. This time is in addition to time spent performing reported procedures but includes the following:
[x] Data Review and interpretation
[x] Patient assessment and monitoring of vital signs
[x] Documentation
[x] Medication orders and management
Risk of Complication:
Social Determinants of health: Good social support
Discussed with other providers: N/A
Escalation of Care includes Admit/Obs: After being observed in the Emergency Department, pt stable for discharge.
Occasional wrong word or 'sound a like' substitutions may have occurred due to the inherent limitations of voice recognition software. Read the chart carefully and recognize, using context, where substitutions have occurred.
*Critical Care Note
Total Time (30-74mins, 75-104mins- exclusive of procedures): 35 min
ED Attending Note
-
Portions of this chart may have been created with voice recognition software.� Occasional wrong word or��sound alike� substitutions may have occurred due to the inherent limitations of voice recognition software.
Discharge Plan
Departure
Patient Disposition: Admit
Date of Disposition: 11/04/24
Time of Disposition: 02:27
Admit to: IMU
Presentation/result/management discussed w/ accepting MD/DO: Hospitalist
Discharge Problem:
Bright red rectal bleeding, Pulmonary edema, Hypoxia, Symptomatic anemia
Prescriptions:
No Action
insulin glargine [Lantus U-100 Insulin] 100 UNITS/1 ML solution
10 units SC HS
Patient Comments:
hold less than 150
divalproex 500 MG tablet,delayed release (DR/EC)
500 mg PO HS
acetaminophen 325 MG tablet
650 mg PO DAILYPRN PRN (Reason: mild pain)
risperidone 2 MG tablet
2 mg PO HS
metformin 1,000 MG tablet
1,000 mg PO BID@0800,1700
fluticasone propion-salmeterol 1 DISK blister with device
1 puff inhalation R BID
albuterol sulfate 1 PUFF HFA aerosol inhaler
2 puff inhalation R Q4HPRN PRN (Reason: sob)
risperidone 1 MG tablet
1 mg PO DAILY
levothyroxine 25 MCG tablet
25 mcg PO DAILY AT 0700 Qty: 30 0RF
albuterol sulfate 2.5 MG/3 ML solution for nebulization
2.5 mg inhalation R Q4HPRN PRN (Reason: SOB/wheeze)
acetaminophen [Tylenol Arthritis] 650 MG tablet extended release
650 mg PO HS
furosemide 20 MG tablet
10 mg PO DAILY 0RF
cephalexin 500 mg capsule
500 mg PO BID 7 Days Qty: 14 0RF
amoxicillin-pot clavulanate 875-125 mg tablet
1 tab PO BID Qty: 20 0RF
amoxicillin-pot clavulanate 875-125 mg tablet
1 tab PO BID Qty: 19 0RF
pantoprazole [Protonix] 40 mg tablet,delayed release (DR/EC)
40 mg PO DAILY Qty: 30 0RF
levofloxacin 500 mg tablet
500 mg PO DAILY 7 Days Qty: 7 0RF
metronidazole 500 mg tablet
500 mg PO TID Qty: 21 0RF
ondansetron 4 mg tablet,disintegrating
4 mg PO Q8H PRN (Reason: nausea and vomiting) Qty: 10 0RF
Interventions
Interventions:
*Risk Screen - Suicide Last Done: 11/04/24 00:34
*General Assessment Last Done: 11/04/24 01:27
*Neglect/Abuse Screening Last Done: 11/04/24 00:34
*ED COVID-19 Vaccine History Last Done: 11/04/24 01:27
ED- Cardiac Assessment Last Done: 11/04/24 01:27
ED-Female Genitourinary Assessment Last Done: 11/04/24 02:07
ED- Neurological Assessment Last Done: 11/04/24 01:27
ED- Pulmonary Assessment Last Done: 11/04/24 02:08
Discharge Date and Time
Print Language: SPANISH
[2024-11-04] MEDS: LASIX 40 MG IV ×2 (02:30→15:45)
[2024-11-04] MEDS: DUONEB 3 ML INH (02:31)
--- NOTE | 2024-11-04 03:22 | HPS.HSE ---
Family Physician
-
Family Physician: Raj Holt
Chief Complaint
-
Chest pressure and shortness of breath with BRBPR
History of Present Illness
89-year-old woman comes in initially for evaluation of generalized weakness and fatigue. Family states this is her third visit to the ER for the same thing. She is currently on antibiotics for UTI. However, family states that she looks pale and
she is complaining of abdominal and chest pain. Family states that she has been developing bright red rectal bleeding. She is not on blood thinners. Patient is now requiring oxygen. Blood work iin the ED showed an elevated troponin and BNP.
Family signed consent for blood transfusion. also having very high BP which is no normal for her. ED ordered Blood and Lasix.
Medical History
Past Medical History
Past Medical History: Reports Other
Additional Past Medical History:
Schizophrenia, unspecified typeControlled type 2 diabetes mellitus with hyperglycemia, without long-term current use of insulin
Slow transit constipation
Moderate persistent asthma with exacerbation
hypothyroidism
obesity due to excess calories
Backache
Migraine Headache
Esophagus Reflux (GERD)
diverticulitis
hyponatremia
Past Surgical History: Reports None
Social History
Unable to obtain full social history at this time due to: Acuity
Tobacco: Non-smoker
Alcohol: None
Drug: None
Living: With Family
Family History
Family History: Not pertinent
Allergies / Home Medications
Allergies reflects when Allergies were last updated in [facility].
Home Medications with original date entered in [facility]
Allergy/Medication List:
Allergies
Allergy/AdvReac Type Severity Reaction Status Date / Time
No Known Drug Allergies Allergy Unknown Verified 11/04/24 00:38
Home Medications
insulin glargine 100 unit/mL subcutaneous solution (Lantus U-100 Insulin) 10 units SC HS 09/27/11
divalproex 500 mg tablet,delayed release 500 mg PO HS 12/08/11
acetaminophen 325 mg tablet 650 mg PO DAILYPRN PRN mild pain 05/22/19
albuterol sulfate 90 mcg/actuation aerosol inhaler 2 puff inhalation R Q4HPRN PRN sob 05/22/19
fluticasone 100 mcg-salmeterol 50 mcg/dose blistr powdr for inhalation 1 puff inhalation R BID 05/22/19
metformin 1,000 mg tablet 1,000 mg PO BID@0800,1700 05/22/19
risperidone 1 mg tablet 1 mg PO DAILY 05/22/19
risperidone 2 mg tablet 2 mg PO HS 05/22/19
levothyroxine 25 mcg tablet 25 mcg PO DAILY AT 0700 ##30 05/24/19
acetaminophen 650 mg tablet,extended release (Tylenol Arthritis) 650 mg PO HS 03/02/21
albuterol sulfate 2.5 mg/3 mL (0.083 %) solution for nebulization 2.5 mg inhalation R Q4HPRN PRN SOB/wheeze 03/02/21
furosemide 20 mg tablet 10 mg (1/2 x 20 mg) PO DAILY 03/07/21
cephalexin 500 mg capsule 500 mg PO BID Urinary issue 7 days #14 caps 05/17/23
amoxicillin 875 mg-potassium clavulanate 125 mg tablet 1 tab PO BID #20 tabs 05/21/23
amoxicillin 875 mg-potassium clavulanate 125 mg tablet 1 tab PO BID Gastrointestinal issue #19 tabs 10/21/24
pantoprazole 40 mg tablet,delayed release (Protonix) 40 mg PO DAILY Gastrointestinal issue #30 tabs 10/21/24
levofloxacin 500 mg tablet 500 mg PO DAILY Gastrointestinal issue 7 days #7 tabs 11/02/24
metronidazole 500 mg tablet 500 mg PO TID Gastrointestinal issue #21 tabs 11/02/24
ondansetron 4 mg disintegrating tablet 4 mg PO Q8H PRN nausea and vomiting #10 tabs 11/02/24
Review of Systems
-
Unable to obtain full review of systems at this time due to: Acuity
History Source: Patient and Family
A 12 point ROS was completed and negative except as noted: Yes
Physical Exam
Vital Signs
Vital Signs
Pulse Resp BP Pulse Ox
92 28 201/83 99
11/04/24 03:15 11/04/24 03:15 11/04/24 03:01 11/04/24 03:15
Physical Exam
General: Well Developed, Well Nourished, Appears in Distress and Appears Chronically Ill
HEENT: Nose Appears Normal, Ears Appear Normal and Oxygen; No Good Dentition
Respiratory: Rales, Rhonchi, Crackles and Decreased Breath Sounds
Cardiac: S1/S2 and Regular Rhythm
GI: Soft, Non Tender and Non Distended
Musculoskeletal: No Clubbing, No Cyanosis and No Edema
Skin: Warm and Dry
Neuro: Awake and Alert
Psych: Anxious
Laboratory Results
-
11/04/24 01:25
11/04/24 01:25
Laboratory Results
PT 13.9 Sec (11.4-14.6) 11/04/24 01:33
PT Cancelled 11/04/24 01:33
INR 1.04 11/04/24 01:33
INR Cancelled 11/04/24 01:33
APTT 30.1 Sec (23.4-35.0) 11/04/24 01:33
Total Bilirubin 0.4 mg/dl (0.2-1.3) 11/04/24 01:25
AST 29 U/L (14-36) 11/04/24:25
ALT 19 U/L (0-35) 11/04/24:25
Alkaline Phosphatase 77 U/L (38-126) 11/04/24:25
Troponin I 0.061 ng/ml H* 11/04/24 01:25
Data Reviewed
-
Lab Data: Labs Reviewed by me
Impression/Plan
-
IMPRESSION:
89 woman with chest pain, chest pressure, shortness of breath, BRBPR and high BP. Significant findings:
BP 202/124
H/H 7.2/22.2
Na 123
Glucose 168
Troponin 0.061
BNP 4,620
CXR Bilat pleural effusions
ECG NSR
PLAN:
1. Chest pain and pressure with elevated troponin, not in renal failure
Hold ASA given active GIB
Morphine
NItropaste
Give blood
Trend troponin until peaks
Echo
Cardiology consult
2. Bilateral effusions and elevated BNP, likely acute heart failure in setting oF MT. Type of CHF not known at this time.
Lasix
Check echo
3. Hyponatremia - acute on chronic - likely hypervolemic hyponatremia
Should improve with diuresis
Hold off on gibing saline given the heart failure
4. Insulin dependent glucose
SQ insulin as needed
5. Anemia with BRBPR
Blood transfusion
GI consult
6. Uncontrolled HTN - acute exacerbation likely from pain and SOB
Nitropaste and morphine will help
If needed after this add further BP control
Cardiology consult
7. Hypothyroidism/GERD/schizophrenia and other PMH
Continue home meds
Full code
VCD for DVTp (avoid heparin, actively bleeding)
[2024-11-04] MEDS: NITRO-BID 1 INCH TOPICAL ×4 (03:53→23:29)
[2024-11-04] MEDS: MORPHINE SULFATE 1 MG IV ×5 (03:55→13:33)
[2024-11-04 06:21] LABS: Hematocrit 28.4 % (37.0-47.0); Hemoglobin 9.3 g/dL (12.0-16.0); Mean Corp Hgb Conc. 32.7 g/dL (33.0-37.0); Mean Corpuscular Hgb 27.5 pg (27.0-31.0); Mean Platelet Volume 10.6 fL (7.4-10.4); Platelet Count 276 10^3/uL (130-400); Red Blood Cell Count 3.38 10^6/uL (4.20-5.40); Red Cell Dist. Width 14.9 % (11.5-14.5); White Blood Cell Count 8.9 10^3/uL (4.8-10.8)
--- NOTE | 2024-11-04 06:21 | PTCARENOTE ---
received patient from the ED. AAOx3. speaks Telugu. bodywork therapist line used for assessment. SR on tele 80s. patient complaining of LUQ abdominal and middle chest pain, 08/02. appears uncomfortable. EKG completed and troponin sent. abdomen tender on
palpation. round/soft. PRN morphine given, see mar. slight improvement of pain- 06/02. updated Summer pedersen [employer]. elevated bp 170s-180s/80s. awaiting orders. 99% on 2L NC. lungs diminished, poor effort. x1 unit of PRBCs completed. patient
denies any shortness of breath. oriented patient to room/call riley. family at the bedside.
[2024-11-04 06:38] LABS: ALT (SGPT) 20 U/L (0-35); AST (SGOT) 30 U/L (14-36); Alkaline Phosphatase 90 U/L (38-126); Blood Urea Nitrogen 11 mg/dl (7-17); Calcium 8.9 mg/dl (8.4-10.2); Carbon Dioxide 30 mmol/L (22-30); Chloride 87 mmol/L (98-107); Estimated Creatinine Clearance 42 ml/min; Glucose 141 mg/dl (70-99); HDL Cholesterol 94 mg/dl; LDL Cholesterol, Calculated 55 mg/dl; Potassium 4.4 mmol/L (3.5-5.1); Sodium 126 mmol/L (135-145); Total Bilirubin 0.5 mg/dl (0.2-1.3); Total Cholesterol 170 mg/dl (50-199); Total Protein 6.8 g/dl (6.3-8.2); Triglyceride 109 mg/dl (10-149); Very Low Density Lipoprotein 21 mg/dl (0-30); eGFR > 60.00
[2024-11-04] MEDS: PROTONIX IV 80 MG IV (06:39)
[2024-11-04] MEDS: NSS (PRESERVATIVE FREE) 20 ML IV (06:39)
[2024-11-04] MEDS: CRESTOR PO ×2 (07:12→17:06)
[2024-11-04] MEDS: SYNTHROID PO (07:13)
[2024-11-04] MEDS: NITRO-BID TOPICAL (07:13)
--- NOTE | 2024-11-04 07:49 | PTCARENOTE ---
patient urinating yellow urine with the purwick in place. bladder scan order per MICROSYSTEMS ENGINEER at approx 0630. bladder scan over 800 cc. asked patient to urinate-patient was able. bladder scan over 600. straight cathed patient with no issues- 700 cc clear
yellow urine.
another dose of morphine given for continued LUQ and chest pain- see dec. report given to day shift RN.
[2024-11-04] MEDS: LASIX 20 MG IV (08:13)
[2024-11-04] MEDS: NITROSTAT (SUBLINGUAL) 0.4 MG SL ×3 (08:56→09:14)
[2024-11-04] MEDS: RISPERDAL 1 MG PO (09:21)
--- NOTE | 2024-11-04 09:23 | CON.GI ---
Consultation
-
Date/Time Consultation Requested: 11/04/24
Date/Time Consultation Performed: 11/04/24
Requesting Provider: Dr. Oconnell
Performing Provider: Dr. Merlos
Reason for Consultation: Anemia, BRBPR
Medical History
Chief Complaint / HPI
Chief Complaint: BRBPR, abdominal pain
History of Present Illness:
Azam is an 89-year-old female with past medical history of asthma, hypothyroidism, diabetes, schizophrenia and recent diagnosis of diverticulitis who presents for evaluation of generalized weakness, fatigue, chest pain and lower abdominal pain.
Patient speaks Colombian, translation provided by finishing machine tender ID number [id number], Keith. Despite having an interpretor, patient not providing much history, but does not seem confused. Son at bedside, assisted with history. He states his mother
has been complaining of chest pain for the last 2 months, this is their 3rd presentation to the hospital. She does follow with a primary care doctor. She separately complains of lower abdominal pain. Unable to provide any details regarding her bowel
movements. Findings of mild diverticulitis on CT scan on 11/01, given a course of Augmentin. Son states no improvement in pain. No prior EGD or colonoscopy. Denies previous issues with anemia. Reportedly had some scant amounts of bright red blood per
rectum, very small volume. Son does not know any additional details but this is new for her. No family history of GI malignancy.
On arrival, hemoglobin 7.2 (seee trend below). She received 2 units PRBC with improvement to 9.3, MCV 79. BUN normal. She had an elevated troponin .061 --> .060 --> .060. She is hypertensive. Currently has nitro paste, continues to endorse severe
chest discomfort. BNP elevated to 4,620. CXR with findings of pulmonary edema. Mildly tachypneic but normal saturations on room air. Cardiology eval pending.
--Hemoglobin 05/17/23: 11.6
--Hemoglobin 10/20/24: 9.0
Hemoglobin 11/01/24: 8.8
--Hemoglobin 11/04/24: 7.2
Past Medical History
Past Medical History: Other (asthma, hypothyroidism, diabetes, schizophrenia)
Social History
Tobacco: Non-Smoker
Alcohol: None
Drug: None
Living: With Family
Family History
Family History: Reviewed & Not Pertinent
Allergies / Home Medications
Allergy/AdvReac Type Severity Reaction Status Date / Time
No Known Drug Allergies Allergy Unknown Verified 11/04/24 00:38
�Medication �Instructions �Recorded
insulin glargine 100 unit/mL 10 units SC HS 09/27/11
subcutaneous solution (Lantus
U-100 Insulin)
divalproex 500 mg tablet,delayed 500 mg PO HS 12/08/11
release
acetaminophen 325 mg tablet 650 mg PO DAILYPRN PRN mild pain 05/22/19
albuterol sulfate 90 mcg/actuation 2 puff inhalation R Q4HPRN PRN sob 05/22/19
aerosol inhaler
fluticasone 100 mcg-salmeterol 50 1 puff inhalation R BID 05/22/19
mcg/dose blistr powdr for
inhalation
metformin 1,000 mg tablet 1,000 mg PO BID@0800,1700 05/22/19
risperidone 1 mg tablet 1 mg PO DAILY 05/22/19
risperidone 2 mg tablet 2 mg PO HS 05/22/19
levothyroxine 25 mcg tablet 25 mcg PO DAILY AT 0700 ##30 05/24/19
acetaminophen 650 mg 650 mg PO HS 03/02/21
tablet,extended release (Tylenol
Arthritis)
albuterol sulfate 2.5 mg/3 mL 2.5 mg inhalation R Q4HPRN PRN 03/02/21
(0.083 %) solution for nebulization SOB/wheeze
furosemide 20 mg tablet 10 mg (1/2 x 20 mg) PO DAILY 03/07/21
cephalexin 500 mg capsule 500 mg PO BID Urinary issue 7 days 05/17/23
#14 caps
amoxicillin 875 mg-potassium 1 tab PO BID #20 tabs 05/21/23
clavulanate 125 mg tablet
amoxicillin 875 mg-potassium 1 tab PO BID Gastrointestinal 10/21/24
clavulanate 125 mg tablet issue #19 tabs
pantoprazole 40 mg tablet,delayed 40 mg PO DAILY Gastrointestinal 10/21/24
release (Protonix) issue #30 tabs
levofloxacin 500 mg tablet 500 mg PO DAILY Gastrointestinal 11/02/24
issue 7 days #7 tabs
metronidazole 500 mg tablet 500 mg PO TID Gastrointestinal 11/02/24
issue #21 tabs
ondansetron 4 mg disintegrating 4 mg PO Q8H PRN nausea and 11/02/24
tablet vomiting #10 tabs
Review of Systems
-
History Source: Patient and Family
All other systems: A 12 pt ROS was Negative except as stated above in HPI
Vital Signs
Temp Pulse Resp BP Pulse Ox
98.9 F 79 24 177/74 96
11/04/24 07:02 11/04/24 05:33 11/04/24 07:02 11/04/24 09:19 11/04/24 07:02
Physical Exam
Exam
GI: Soft, Normal Bowel Sounds, Tender (Lower abdominal pain, just inferior to the umbilicus, no rebound or guarding) and Other
Results
WBC 8.9 10^3/uL (4.8-10.8) 11/04/24 06:00
Hgb 9.3 g/dL (12.0-16.0) L D 11/04/24 06:00
Hct 28.4 % (37.0-47.0) L 11/04/24 06:00
MCV 84.0 fL (81.0-99.0) 11/04/24 06:00
Plt Count 276 10^3/uL (130-400) 11/04/24 06:00
Absolute Neuts (auto) 6.7 10^3/uL (1.4-6.5) H 11/04/24 01:25
PT 13.9 Sec (11.4-14.6) 11/04/24 01:33
PT Cancelled 11/04/24 01:33
INR 1.04 11/04/24 01:33
INR Cancelled 11/04/24:33
APTT 30.1 Sec (23.4-35.0) 11/04/24 01:33
Sodium 126 mmol/L (135-145) L 11/04/24 06:00
Potassium 4.4 mmol/L (3.5-5.1) 11/04/24 06:00
Chloride 87 mmol/L (98-107) L 11/04/24 06:00
Carbon Dioxide 30 mmol/L (22-30) 11/04/24 06:00
BUN 11 mg/dl (7-17) 11/04/24 06:00
Creatinine 0.9 mg/dL (0.6-1.0) 11/04/24 06:00
Calcium 8.9 mg/dl (8.4-10.2) 11/04/24 06:00
Total Bilirubin 0.5 mg/dl (0.2-1.3) 11/04/24 06:00
AST 30 U/L (14-36) 11/04/24 06:00
ALT 20 U/L (0-35) 11/04/24 06:00
Alkaline Phosphatase 90 U/L (38-126) 11/04/24 06:00
Diagnostic Image Results:
Prior GI Procedures:
EGD:
Colonoscopy:
Assessment / Plan
-
Azam is an 89-year-old female with past medical history of asthma, hypothyroidism, diabetes, schizophrenia and recent diagnosis of diverticulitis who presents for evaluation of generalized weakness, fatigue, chest pain and lower abdominal pain,
found to be anemic.
#Microcytic Anemia
#Rectal bleeding
#Lower abdominal pain
Downtrending hemoglobin over the last few weeks, relatively normal in 04/2023
Transfused with 2 units PRBC (11/03) with improvement, Hgb 7.2 --> 9.3 --> 10.3
Check iron studies (though, will be inaccurate given transfusions)
Active T&C
2 large bore peripheral gauge IVs
PPI BID
No prior EGD/Colonoscopy
Reports small volume hematochezia
Recent diagnosis of mild diverticulitis (11/01)-- ongoing abdominal pain despite compliance with Augmentin, repeat performed, read pending; will review to ensure no other abdominal pathology, if relatively stable findings, would recommend IV abx
(consider it a failed PO abx)
Discussed need to defer colonoscopy, waiting at least 6 weeks from diverticulitis episode. She has multiple indications for colonoscopy (no prior CRC screening, diverticulitis, Anemia, hematochezia); given cardiac/pulmonary status at this time, she
is also not optimized to undergo endoscopic evaluation
Will follow
Data Reviewed
-
CT Scan: Report Reviewed by me
-
-
Thank you for consultation and allowing me to participate in the patient's care. Please call the information tech GI physician during the after hours with any questions or concerns.
[2024-11-04] MEDS: KEFLEX 500 MG PO (09:26)
[2024-11-04] MEDS: LEVAQUIN 500 MG PO (09:26)
[2024-11-04 09:30] LABS: Hematocrit 30.9 % (37.0-47.0); Hemoglobin 10.3 g/dL (12.0-16.0)
[2024-11-04 09:50] LABS: Troponin I 0.057 ng/ml
--- NOTE | 2024-11-04 09:56 | W.PN.CD ---
Today's Communication / Plan
-
Consult dictated
Cardiac plans
1. treat for potential ACS with ASA (rectal for now; if OK with GI), topical and SL NTG, IV beta tobias (too much N/V for reliable PO meds)
2. will consider IV heparin and track laborer only if we see objective evidence to support ACS: significant troponin elevation and or dynamic EKG changes
3. will treat heart failure with IV Lasix, later add GDMT
Consult line used to obtain history directly from the patient
Total time caring for this patient so far today exceeds 75 minutes.
Impression / Plan
-
CP
- uncertain etiology
- Perhaps 1 month, many episodes, usually 30 min per pt, modest improvement with SL NTG
- Trop not impressive and ekg not dynamic
Acute heart failure, type unknown
- Sx of dyspnea, CXR + for HF findings, crackles on exam (no LE edema), and pBNP 4620, Cr 0.9 and prior pBNP low
N/V
- Uncertain etiology
- GI involved
Urinary retention
- Straight cath x1 so far
Hx of BRBPR
- No stool here for heme testing, ordered
Acute on chronic anemia, etiology uncertain, not sure iron studied are from prior to PRBC transfusion
- S/p PRBC
DM
Psych Hx, ? schizophrenia, an old note from says mild dementia
GERD
Asthma
Hypothyroidism
Subjective:
+ dyspnea, + CP but minimal at this time, + n/v
Physical Exam
Vital Signs/Labs
Vital Signs
Temp Pulse Resp BP Pulse Ox
98.9 F 79 24 177/74 96
11/04/24 07:02 11/04/24 05:33 11/04/24 07:02 11/04/24 09:19 11/04/24 07:02
11/03/24 11/04/24 11/05/24
06:59 06:59 06:59
Actual Weight 73.9 kg
11/04/24 06:00
PT 13.9 Sec (11.4-14.6) 11/04/24 01:33
PT Cancelled 11/04/24 01:33
INR 1.04 11/04/24 01:33
INR Cancelled 11/04/24 01:33
APTT 30.1 Sec (23.4-35.0) 11/04/24 01:33
Triglycerides 109 mg/dl (10-149) 11/04/24 06:00
LDL Cholesterol, Calc 55 mg/dl 11/04/24 06:00
VLDL Cholesterol, Calc 21 mg/dl (0-30) 11/04/24 06:00
HDL Cholesterol 94 mg/dl 11/04/24 06:00
11/04/24
01:25
Mxx-F-Utddxqoozph Pept 4620
LAB Results
11/04/24 11/04/24 11/04/24
01:25 03:25 06:00
Troponin I 0.061 H* 0.060 H* 0.060 H*
11/04/24
09:07
Troponin I 0.057 H*
Data Reviewed
-
Date of Service: November 04, 2024
[2024-11-04] MEDS: ZOFRAN 4 MG IV ×2 (10:06→16:06)
[2024-11-04] MEDS: APRESOLINE 5 MG IV (10:12)
[2024-11-04] MEDS: ADVAIR HFA 115/21 MCG INHALER INH (10:35)
--- NOTE | 2024-11-04 10:55 | PTCARENOTE ---
Pt granddaughter at bedside translating. Pt c/o chest pressure 8/10. BP 190/81. Eulalio SNELL and Saurabh Gagnon MD notified and orders placed. Morphine administered as ordered for pain. See mar. Ekg obtained- NSR. 3 SL nitro administered and pt notes
slight relief. IV hydralazine ordered and administered. BP 178/66. Pt also c/o n/v. IV zofran administered and pt notes relief. Currently in bed; call riley w/in reach.
[2024-11-04 11:15] LABS: Glucose - Point of Care 187 mg/dl (70-99)
[2024-11-04] MEDS: ASPIRIN 300 MG RECTAL (11:24)
[2024-11-04] MEDS: LOPRESSOR 5 MG IV ×3 (11:25→23:22)
--- NOTE | 2024-11-04 12:30 | PTCARENOTE ---
Bladder scanned pt for 1048 d/t no urine output. Kalin SNELL aware and orders placed. 1x straight cath performed for 1000cc clear yellow urine.
--- NOTE | 2024-11-04 12:38 | W.PN.UPDATE ---
Addendum entered and electronically signed by Saurabh Gagnon MD 11/04/24 12:50:
Patient was initiated on Levaquin and Flagyl for diverticulitis once last 07/18. Current CT shows no diverticulitis. Will finish 10 course of antibiotics. In view of nausea antibiotics switched to IV
Original Note:
Update Note
Progress Note Update
Seen by Dr. Schwarz this morning. Admitted for abdominal pain/chest pain and was noted to have anemia with heme positive stools.
Patient is Yemeni-speaking.
Used video hazmat cdl a driver line.
She says her main symptom right now is abdominal discomfort with persistent nausea. She states it is going on for a month. She is not sure when she had the last bowel movement. She had no bowel movements here. She is not sure whether she is
passing gas. She also mention about seeing blood in the stools at home.
Denying any chest pain or shortness of breath currently.
Chest with bilateral lower zone crackles. No respiratory distress but requiring oxygen via nasal cannula. Heart sound S1 plus S2 heard regular
Abdomen seems to be mildly distended soft bowel sounds hypoactive.
Lab data noted
CT of the abdomen pelvis is now reported. This is the third CT abdomen pelvis within the last couple of months.
It shows new bilateral mild hydronephrosis and moderately distended urinary bladder with no stones. She does have clinically high residuals in 600s. He had a straight cath once. Will place a Majano catheter and follow hydronephrosis on a
follow-up ultrasound.
There is 2.1 cm nodular area of abnormal enhancement along the anterior urinary bladder-will consult urology for a cystoscopy need.
CT also associated chest with small bilateral pleural effusion.
Diverticulosis without any acute diverticulitis noted on the current CT.
Acute CHF decompensation-unknown EF-currently without chest pain. Continue with diuretics per cardiology. No plans for cardiac catheterization. Started on aspirin.Trops noted.
Blood in the stools suggestive GI bleed with blood loss anemia-status post 1 unit of transfusion with improved H&H. Continue with hemoglobin monitoring. Appreciate GI input. Patient never had a colonoscopy which she might need at some point.
See plan regarding bladder issues above.
No known hx of HTN /not on meds per pt -started on PRN hydralazline.
--- NOTE | 2024-11-04 13:07 | PTCARENOTE ---
Majano placed per order. Pt tolerated.
--- NOTE | 2024-11-04 13:22 | W.PN.URO.CBU ---
Today's Communication / Plan
-
[facility]
Assessment / Plan
-
POSSOBLE HEMATURIA FROM BLADDER MASS BUT VCAN BE FROM CHRONIC CYSTIS PT DOES HAVE MOEDERATE RETENTION BILATERAL HYDRO AN WILL BENFIT FROM COHEN FOR NOW IN LONG RUN CYSTO NEEDED FOR ECVAL BUT NOIT DURING CHF AND GI BLEED
Diagnosis
-
Date of Service: November 04, 2024
-
Patient Diagnosis:POSSIBLE BLADDER MASS AND DEFINITE URINARY RETENTION WITH MILD BILATERAL HYDRONEPHROSIS AND MENDOZA IN PT WITH GI BLEED AND CHF
Post Op Day:
Subjective
-
LOWER ABD PAIN AND BLOOD
Objective
-
Vital Signs
Temp Pulse Resp BP Pulse Ox
98.8 F 87 22 153/55 97
11/04/24 11:23 11/04/24 13:00 11/04/24 11:23 11/04/24 11:26 11/04/24 11:26
Intake and Output
11/03/24 11/04/24 11/05/24
06:59 06:59 06:59
Intake Total 250 / 250
Output Total 1200 / 1200 1700 / 1700
Balance -950 / -950 -1700 / -1700
Intake:
Blood Product Amount Infused ( 250 / 250
mL)
Packed Rbc Leukoreduced Unit 250 / 250
[id number]
Output:
Urine, Voided 1200 / 1200
Straight cath output 1700 / 1700
Laboratory Results
11/04/24 23:33
11/04/24 06:00
Review of Systems
-
Abdomen/GI: Abdominal Pain, Bloody Stools and Pain
: Difficulty Voiding
Physical Exam
-
General - well developed, well nourished, no acute distress
Chest - clear bilaterally
Abdomen - soft, non-tender, positive bowel sounds, no CVAT, no incisional pain or distention
Genitalia - normal
Rectal - normal
Skin - warm & dry with no rash
Neuro - AOx3, no motor deficits
Extremities - no clubbing, no cyanosis, no edema
Incision - clean, dry
Dressing - clean, dry, intact
Care Review
Data Reviewed
Discussed with: Hospitalist
CT Scan: Image Pers Reviewed
[2024-11-04] MEDS: LEVAQUIN 100 IV (14:10)
--- NOTE | 2024-11-04 14:24 | PTCARENOTE ---
pt w/ SOB and exp wheeze. Kalin SNELL notified and albuterol PRN order placed.
[2024-11-04] MEDS: VENTOLIN NEBULES 2.5 MG INH (14:32)
[2024-11-04 15:24] LABS: Iron 58 ug/dl (37-170)
[2024-11-04 15:33] LABS: Percent Saturation 12 % (20-50); Total Iron Binding Capacity 448 ug/dl (265-497)
[2024-11-04] MEDS: FLAGYL 500 MG 100 IV ×2 (15:57→23:26)
[2024-11-04 16:04] LABS: Glucose - Point of Care 166 mg/dl (70-99)
[2024-11-04 16:08] LABS: Hemoglobin 9.5 g/dL (12.0-16.0)
[2024-11-04] MEDS: ADVAIR HFA 115/21 MCG INHALER 2 PUFF INH (18:00)
[2024-11-04 21:15] LABS: Glucose - Point of Care 140 mg/dl (70-99)
[2024-11-04 21:35] LABS: Hematocrit 27.8 % (37.0-47.0); Hemoglobin 9.6 g/dL (12.0-16.0)
[2024-11-04] MEDS: RISPERDAL PO (22:52)
[2024-11-04] MEDS: LANTUS 0.1 UNITS SC (23:03)
[2024-11-04] MEDS: DEPACON 52.5 MG IV (23:19)
--- NOTE | 2024-11-04 23:54 | PTCARENOTE ---
Received patient at change of shift. SR on the monitor, HR in the 70s. 93% on 3L nasal cannula. Amjano in place. Language line in room, no complaints from pt at this time, call riley within reach.
[2024-11-05] VITALS (9 sets, daily range): BP systolic 109–164; BP diastolic 44–88; BMI 26.1
[2024-11-05] MEDS: VALIUM INJECTION 2 MG IV (02:14)
[2024-11-05 02:25] LABS: Glucose - Point of Care 130 mg/dl (70-99)
[2024-11-05] MEDS: VENTOLIN NEBULES 2.5 MG INH (04:15)
[2024-11-05] MEDS: DILAUDID 0.25 MG IV (04:45)
[2024-11-05 04:48] LABS: Blood Urea Nitrogen 12 mg/dl (7-17); Calcium 8.8 mg/dl (8.4-10.2); Carbon Dioxide 34 mmol/L (22-30); Chloride 85 mmol/L (98-107); Estimated Creatinine Clearance 36 ml/min; Glucose 106 mg/dl (70-99); Potassium 4.3 mmol/L (3.5-5.1); Sodium 127 mmol/L (135-145); eGFR > 60.00
[2024-11-05 04:59] LABS: Troponin I 0.047 ng/ml
[2024-11-05] MEDS: NITRO-BID 1 INCH TOPICAL (05:13)
[2024-11-05] MEDS: LOPRESSOR 5 MG IV (05:13)
--- NOTE | 2024-11-05 06:44 | PTCARENOTE ---
Patient visibly restless in bed. Majano noted to be disconnected from stat lock. New stat lock applied. Via language line pt said Majano was uncomfortable. Educated pt on the purpose of the Majano. Notified HIV CTS SPECIALIST Deedee Penny of patients complaints and
restlessness. IV Valium ordered and administered, see DEC. Pt appeared less restless but for a short period of time. Patient again became restless and complained of whole body pain, Deedee Penny was notified, IV pain medication ordered and administered as
per DEC. Patient made multiple attempts to remove catheter. Repositioned patient in bed multiple times. Provided therapeutic communication with language line. Patient continued attempting to remove Majano, HIV CTS SPECIALIST Deedee Penny aware. Order for bilateral wrist
soft restraints obtained and restraints applied. Education regarding restraints provided. Call riley within reach.
[2024-11-05 07:54] LABS: Glucose - Point of Care 126 mg/dl (70-99)
[2024-11-05] MEDS: FLAGYL 500 MG 100 IV ×3 (09:12→23:56)
[2024-11-05] MEDS: LOW STRENGTH ASPIRIN 81 MG PO (09:12)
[2024-11-05] MEDS: LASIX 40 MG IV ×2 (09:12→16:34)
[2024-11-05] MEDS: NSS (PRESERVATIVE FREE) 10 ML IV (09:13)
[2024-11-05] MEDS: PROTONIX IV 40 MG IV (09:13)
[2024-11-05] MEDS: ADVAIR HFA 115/21 MCG INHALER 2 PUFF INH ×2 (09:15→19:32)
[2024-11-05] MEDS: SYNTHROID 25 MCG PO (09:42)
[2024-11-05] MEDS: ASPIRIN RECTAL (09:43)
[2024-11-05] MEDS: RISPERDAL 1 MG PO (09:59)
--- NOTE | 2024-11-05 11:10 | W.PN.GI.CBS2 ---
Today's Communication / Plan
-
Brown, heme neg. stool. Outpatient f/u with GI-- Colonoscopy +/- EGD in 6 weeks. No active GI bleeding at this time. GI will sign off, please call with questions.
Assessment / Plan
-
Azam is an 89-year-old female with past medical history of asthma, hypothyroidism, diabetes, schizophrenia and recent diagnosis of diverticulitis who presents for evaluation of generalized weakness, fatigue, chest pain and lower abdominal pain,
found to be anemic.
#Microcytic Anemia
#Rectal bleeding
#Lower abdominal pain
#Mild diverticulitis s/p course of Augmentin-- resolved
#b/l hydronephrosis w/ urinary retention, c/f bladder mass
Downtrending hemoglobin over the last few weeks, relatively normal in 04/2023
Transfused with 1unit of PRBC with stable hemoglobin at 9.6
No prior EGD or Colonoscopy, however, recent diverticulitis, not on current CT scan but would wait at least 6 weeks from documented diverticulitis (11/01), no additional abx needed for diverticulitis treatment
She has brown, heme neg. stool. A GI workup is certainly warranted in her case, deonte. given recent diverticulitis and no prior colonoscopy, however, need to wait at least 6 weeks from diverticulitis. At this time, given new findings on CT scan, her
blood loss could be urinary and related to possible bladder mass, so would recommend pursuing this once she is optimized from a cardiac/fluid perspective.
Will sign off and arrange for outpatient GI follow-up. Please call back if evidence of active GI bleeding
Subjective
Subjective
Date of Service: November 05, 2024
Patient seen in follow-up. Hemoglobin improved to 10.3 --> 9.5 --> 9.6 with only 1 unit of PRBC transfused. Repeat CT scan performed on admission with findings of b/l mild hydro, distended urinary bladder and concern for possible bladder mass. No
evidence of diverticulitis seen on CT scan, noted on recent CT scan on 11/01.
Evaluation performed using hospice educator
Objective
Data Reviewed
Laboratory Data:
Laboratory Results
11/04/24 23:33
11/05/24 03:06
Laboratory Results
PT 13.9 Sec (11.4-14.6) 11/04/24 01:33
PT Cancelled 11/04/24 01:33
INR 1.04 11/04/24 01:33
INR Cancelled 11/04/24 01:33
APTT 30.1 Sec (23.4-35.0) 11/04/24 01:33
Total Bilirubin 0.5 mg/dl (0.2-1.3) 11/04/24 06:00
AST 30 U/L (14-36) 11/04/24 06:00
ALT 20 U/L (0-35) 11/04/24 06:00
Alkaline Phosphatase 90 U/L (38-126) 11/04/24 06:00
Vital Signs and I&O:
Vital Signs
Temp Pulse Resp BP Pulse Ox
99.6 F 86 16 160/62 97
11/05/24 07:39 11/05/24 10:00 11/05/24 09:20 11/05/24 07:36 11/05/24 09:20
I&O
11/04/24 11/05/24 11/06/24
06:59 06:59 06:59
Intake Total 250 / 250 200 / 200
Output Total 1200 / 1200 3900 / 3900
Balance -950 / -950 -3700 / -3700
Physical Exam
Physical Exam
GI: Soft, Non Distended, Tender and Normal Bowel Sounds
Rectal: Brown and Hem Negative
--- NOTE | 2024-11-05 11:14 | W.PN.CD ---
Addendum entered and electronically signed by Devante Tsai MD 11/05/24 11:25:
On some PO meds so will go to PO BB and nitrates
At least one more day of IV Lasix
Original Note:
Today's Communication / Plan
-
Echo
Progressive ambulation
Will convert topical nitrates to oral once not NPO
Will convert IV BB to oral once not NPO
Continue diuresis, one more day of IV and hope to convert to PO tomorrow if taking PO
- Watch closely on tele/serial labs
Adjust GDMT for HF based on echo and clinical course
No plans for stress testing or mine laborer
Impression / Plan
-
CP
- uncertain etiology
- Perhaps 1 month, many episodes, usually 30 min per pt, modest improvement with SL NTG
- Trop not impressive and ekg not dynamic
- NO CP today
Acute heart failure, type unknown
- Sx of dyspnea, CXR + for HF findings, crackles on exam (no LE edema), and pBNP 4620, Cr 0.9 and prior pBNP low
- Seems improved with IV diuresis, denied dyspnea
- Weights are not clearly accurate/consistent
N/V
- Uncertain etiology
- GI involved
Urolgy
- E. Coli in urine => ATB
- Suspected bladder mass
- retention
- Majano in place
- Urology involved
Hx of BRBPR
Acute on chronic anemia, etiology uncertain, not sure iron studied are from prior to PRBC transfusion
- S/p PRBC
DM
Psych Hx, ? schizophrenia, an old note from says mild dementia
GERD
Asthma
Hypothyroidism
Subjective:
No CP or dyspnea
Physical Exam
Vital Signs/Labs
Vital Signs
Temp Pulse Resp BP Pulse Ox
99.6 F 86 16 160/62 97
11/05/24 07:39 11/05/24 10:00 11/05/24 09:20 11/05/24 07:36 11/05/24 09:20
11/04/24 11/05/24 11/06/24
06:59 06:59 06:59
Actual Weight 73.9 kg 66.8 kg
11/04/24 23:33
11/05/24 03:06
PT 13.9 Sec (11.4-14.6) 11/04/24 01:33
PT Cancelled 11/04/24 01:33
INR 1.04 11/04/24 01:33
INR Cancelled 11/04/24 01:33
APTT 30.1 Sec (23.4-35.0) 11/04/24 01:33
Triglycerides 109 mg/dl (10-149) 11/04/24 06:00
LDL Cholesterol, Calc 55 mg/dl 11/04/24 06:00
VLDL Cholesterol, Calc 21 mg/dl (0-30) 11/04/24 06:00
HDL Cholesterol 94 mg/dl 11/04/24 06:00
11/04/24
01:25
Xzq-[id number] Pept 4620
LAB Results
11/04/24 11/04/24 11/04/24
03:25 06:00
Troponin I 0.061 H* 0.060 H* 0.060 H*
11/04/24 11/04/24 11/05/24
09:07 11:33 03:06
Troponin I 0.057 H* Cancelled 0.047 H*
Physical Exam
Constitutional: No acute distress
EENT: Anicteric
Cardiovascular: Rhythm & rate is regular and Pedal edema is absent
Respiratory: Respiratory effort normal and Lungs clear to auscul.
GI: Soft and Distention absent
Neuro/Psych: Alert
Data Reviewed
-
Date of Service: November 05, 2024
--- NOTE | 2024-11-05 11:15 | PTCARENOTE ---
Rec'd Pt awake, alert, oriented to name and place. Language I-pad used with video resident care assistant in Japanese. Pt did not know the current year or her date but she did know she is in the hospital. She denied pain. Her granddaughter, who speaks
Lux[place]ish and Japanese came to visit briefly this morning. She said her grandmother, the Pt, is no longer nauseous. No stools thought the night or so far today. Dr Arellano aware and came to see Pt.
--- NOTE | 2024-11-05 11:20 | PTCARENOTE ---
Soft limb restraints removed this am. Pt has attempted to get OOB a few times today, she has bed alarm on. RN sat with Pt for a while. She is calm and laying in bed at present.
[2024-11-05] MEDS: STERILE WATER FOR INJECTION 10 ML IV (11:59)
[2024-11-05] MEDS: ROCEPHIN 1000 MG IV (11:59)
[2024-11-05 12:29] LABS: Glucose - Point of Care 98 mg/dl (70-99)
--- NOTE | 2024-11-05 12:45 | W.PN.URO.CBU ---
Today's Communication / Plan
-
NO INTERVENMTION AT THIS TIME
Assessment / Plan
-
POSSOBLE HEMATURIA FROM BLADDER MASS BUT VCAN BE FROM CHRONIC CYSTIS PT DOES HAVE MOEDERATE RETENTION BILATERAL HYDRO AN WILL BENFIT FROM COHEN FOR NOW IN LONG RUN CYSTO NEEDED FOR ECVAL BUT NOIT DURING CHF AND GI BLEED
Diagnosis
-
Date of Service: November 05, 2024
-
Patient Diagnosis:
Post Op Day:
Patient Diagnosis:POSSIBLE BLADDER MASS AND DEFINITE URINARY RETENTION WITH MILD BILATERAL HYDRONEPHROSIS AND MENDOZA IN PT WITH GI BLEED AND CHF
Post Op Day:
Subjective
-
NO HEMATURIA COMFORTABLE
Objective
-
Vital Signs
Temp Pulse Resp BP Pulse Ox
99.6 F 86 16 160/62 97
11/05/24 07:39 11/05/24 10:00 11/05/24 09:20 11/05/24 07:36 11/05/24 09:20
Intake and Output
11/04/24 11/05/24 11/06/24
06:59 06:59 06:59
Intake Total 250 / 250 200 / 200
Output Total 1200 / 1200 3900 / 3900
Balance -950 / -950 -3700 / -3700
Intake:
Oral fluids 200 / 200
Blood Product Amount Infused ( 250 / 250
mL)
Packed Rbc Leukoreduced Unit 250 / 250
[id number]
Output:
Urine, Cohen 1200 / 1200
Urine, Voided 1200 / 1200 1000 / 1000
Straight cath output 1700 / 1700
Laboratory Results
11/04/24 23:33
11/05/24 03:06
Review of Systems
-
: No Symptoms
Physical Exam
-
General - well developed, well nourished, no acute distress
Chest - clear bilaterally
Abdomen - soft, non-tender, positive bowel sounds, no CVAT, no incisional pain or distention
Genitalia - normal
Rectal - normal
Skin - warm & dry with no rash
Neuro - AOx3, no motor deficits
Extremities - no clubbing, no cyanosis, no edema
Incision - clean, dry
Dressing - clean, dry, intact
Care Review
Data Reviewed
Discussed with: Nursing
[2024-11-05] MEDS: TOPROL XL 25 MG PO ×2 (13:50→20:24)
[2024-11-05] MEDS: IMDUR (EXTENDED RELEASE) 30 MG PO (13:50)
--- NOTE | 2024-11-05 13:52 | CM ---
Chart reviewed. Patient is faroese speaking. Ipad snack foods mixer operator was used to obtain patient's information. Patient is independent of ADLS, lives with her son in a [address], [address] [facility], ambulates with a RW. Plan is for the patient to return home. CM to
follow
[2024-11-05] MEDS: DEPACON 52.5 MG IV ×2 (14:06→23:01)
--- NOTE | 2024-11-05 15:33 | W.PN.HOSP.TC ---
Today's Communication/Plan
-
switch to ceftriaxone, probable Complicate UTI, E-Coli
Maintain Majano
Monitor HGb, hematuria with asa
IV lasix
antihypertensives as per cards
if tolerating diet, can switch to PO meds
ADAT
Monitor Na with diuresis
Assessment / Plan
Assessment / Plan
Physical Exam
General: Well Developed, Well Nourished, Appears in Distress and Appears Chronically Ill
HEENT: Nose Appears Normal, Ears Appear Normal and Oxygen; No Good Dentition
Respiratory: Rales, Rhonchi, Crackles and Decreased Breath Sounds
Cardiac: S1/S2 and Regular Rhythm
GI: Soft, Non Tender and Non Distended
Musculoskeletal: No Clubbing, No Cyanosis and No Edema
Skin: Warm and Dry
Neuro: Awake and Alert
Psych: Anxious
#Chest Pain
-suspect discomfort and nausea as midsternal rather than cardiac in nature
-trops mild
-chest pain resolved
-f/u echo
-restart asa
#Elevated Troponin
-Most likely nonischemic myocardial injury secondary to complicated UTI, sepsis
� Follow-up echo
� Cardiology involved
#Acute HFpEF
#Bilateral pleural effusions
� Follow-up echo
� Continue IV diuresis
#Sepsis
#Complicated UTI
� Has some history of diverticulitis in June 2024, no diverticulitis on imaging this admission
� Switch to ceftriaxone and continue Flagyl for now
#Nausea, abdominal discomfort
� Resolved
� Normal bowel movements
� Advance diet and assess, advance diet as tolerated okay
#Hematuria
#Urinary retention
#Bilateral hydronephrosis
� Has bladder mass, possibly secondary to this
� Continue Majano
� Will need cystoscopy outpatient
#Microcytic anemia
#Acute blood loss anemia
� Hemoglobin stable
� Stool brown, heme-negative
� Status post 1 unit PRBC
� Follow-up outpatient for colonoscopy +/- EGD
� Resume aspirin and monitor hemoglobin
#Hyponatremia - acute on chronic - likely hypervolemic hyponatremia withhydro
Should improve with diuresis
ctm with resuscitation
#Insulin dependent glucose
cont home regimen
#Uncontrolled HTN - acute exacerbation likely from pain and SOB
meds adjusted
#Hypothyroidism
#GERD
#schizophrenia
-Continue home meds
Full code
restart hsq if no hematuria and hgb stable
Total time spent on today's encounter was 50 minutes which included time spent in counseling the patient/family regarding diagnosis and treatment plan as listed above, goals of care, and symptom management. Case was discussed with nursing staff,
specialists, and care coordinators/case management. All labs and imaging personally reviewed by me. Remainder the time spent in detailed review of previous records, lab data, imaging, and other medical provider documentation.
Anticipated Discharge: > 48 hours
Subjective/Interval History
-
Date of Service: November 05, 2024
Feels better today, hematuria resolved, Majano bag with clear urine
Objective Data
-
Labs:
Laboratory Results
11/05/24
03:06
Sodium 127 L
Potassium 4.3
Chloride 85 L
Carbon Dioxide 34 H
BUN 12
Creatinine 0.9
Glucose 106 H
Calcium 8.8
Vital Signs:
Vital Signs
Temp Pulse Resp BP Pulse Ox
97.7 F 86 18 160/62 93
11/05/24 12:33 11/05/24 10:00 11/05/24 12:33 11/05/24 07:36 11/05/24 12:33
I&O
11/04/24 11/05/24 11/06/24
06:59 06:59 06:59
Intake Total 250 / 250 200 / 200
Output Total 1200 / 1200 3900 / 3900 650 / 650
Balance -950 / -950 -3700 / -3700 -650 / -650
Review of Systems
-
History Source: Patient
All other systems: Not reviewed unless documented
Data Reviewed
-
Diagnostic Radiology: Report Reviewed by me
CT Scan: Report Reviewed by me
Labs: Labs Reviewed by me
[2024-11-05 18:08] LABS: Glucose - Point of Care 113 mg/dl (70-99)
[2024-11-05] MEDS: NOVOLOG FLEXPEN-MODERATE RESISTANCE SC (18:08)
[2024-11-05] MEDS: CRESTOR 20 MG PO (18:09)
[2024-11-05 21:20] LABS: Glucose - Point of Care 144 mg/dl (70-99)
[2024-11-05] MEDS: RISPERDAL 2 MG PO (21:29)
[2024-11-05] MEDS: LANTUS 0.1 UNITS SC (21:29)
[2024-11-05] MEDS: MORPHINE SULFATE 1 MG IV (23:30)
[2024-11-05] MEDS: ZOFRAN 4 MG IV (23:30)
--- NOTE | 2024-11-05 23:37 | PTCARENOTE ---
Pt restless, pulling at EKG leads. Attempting to get OOB. Through second language tutor pt stated she was having chest pain but could not describe it or give it a number. also states that she feels like she has to vomit. Pt med with morphine and
zofran. Will continue to monitor.
[2024-11-06 05:27] VITALS: BP 106/39
[2024-11-06] MEDS: TYLENOL 650 MG PO (05:41)
[2024-11-06] MEDS: SYNTHROID 25 MCG PO (05:41)
[2024-11-06 05:47] LABS: Hematocrit 27.8 % (37.0-47.0); Hemoglobin 9.4 g/dL (12.0-16.0); Mean Corp Hgb Conc. 33.8 g/dL (33.0-37.0); Mean Corpuscular Volume 79.9 fL (81.0-99.0); Mean Platelet Volume 10.8 fL (7.4-10.4); Platelet Count 291 10^3/uL (130-400); Red Blood Cell Count 3.48 10^6/uL (4.20-5.40); Red Cell Dist. Width 15.3 % (11.5-14.5); White Blood Cell Count 11.2 10^3/uL (4.8-10.8)
[2024-11-06 05:50] VITALS: BMI 25.3
[2024-11-06 06:10] LABS: ALT (SGPT) 15 U/L (0-35); AST (SGOT) 20 U/L (14-36); Albumin 3.4 g/dl (3.5-5.0); Alkaline Phosphatase 85 U/L (38-126); Blood Urea Nitrogen 15 mg/dl (7-17); Calcium 8.3 mg/dl (8.4-10.2); Carbon Dioxide 37 mmol/L (22-30); Chloride 82 mmol/L (98-107); Estimated Creatinine Clearance 27 ml/min; Glucose 110 mg/dl (70-99); Magnesium 1.5 mg/dl (1.6-2.3); Potassium 3.6 mmol/L (3.5-5.1); Sodium 126 mmol/L (135-145); Total Bilirubin 0.4 mg/dl (0.2-1.3); Total Protein 6.1 g/dl (6.3-8.2); eGFR 43.54
--- NOTE | 2024-11-06 06:26 | PTCARENOTE ---
Temp this am 100.5 House Nicole made aware. Pt med with tylenol.
[2024-11-06 08:19] VITALS: BP 136/58
[2024-11-06 08:29] LABS: Glucose - Point of Care 110 mg/dl (70-99)
[2024-11-06] MEDS: NOVOLOG FLEXPEN-MODERATE RESISTANCE SC ×2 (08:31→17:10)
[2024-11-06] MEDS: ADVAIR HFA 115/21 MCG INHALER 2 PUFF INH ×2 (08:45→19:56)
[2024-11-06] MEDS: FLAGYL 500 MG 100 IV ×2 (08:53→16:34)
[2024-11-06] MEDS: PROTONIX IV 40 MG IV (08:54)
[2024-11-06] MEDS: FLUSH (NSS) 1 FLUSH IV ×2 (08:54→16:34)
[2024-11-06] MEDS: NSS (PRESERVATIVE FREE) 10 ML IV (08:54)
[2024-11-06] MEDS: LOW STRENGTH ASPIRIN 81 MG PO (08:55)
[2024-11-06] MEDS: TOPROL XL 25 MG PO ×2 (08:55→22:11)
[2024-11-06] MEDS: IMDUR (EXTENDED RELEASE) 30 MG PO (08:55)
[2024-11-06] MEDS: RISPERDAL 1 MG PO (08:55)
--- NOTE | 2024-11-06 09:24 | PTCARENOTE ---
Received patient this morning initially very sleepy but now alert, speaking armenian but able to answer simple questions in her language. Oriented to self and appears to understand that she is in the hospital. Asking to eat breakfast. Repositioned in
bed, alarm in place, patient feeding herself breakfast now.
--- NOTE | 2024-11-06 10:06 | W.PN.CD ---
Addendum entered and electronically signed by YO Hoskins 11/06/24 11:31:
There is no co-pay for Farxiga.
Start Farxiga 10 mg daily.
Original Note:
Today's Communication / Plan
-
Move to PO Lasix
Continue Na+/fluid restriction
Add Valsartan for BP control
Later add MRA and SGLT2-I (will ask case management to check cost of SGLT2-I but add as outpatient
Consider evaluation for non cardiac causes of chest pain, defer to medicine
Impression / Plan
-
CP
- uncertain etiology
- Perhaps 1 month, many episodes, usually 30 min per pt, modest improvement with SL NTG
- Trop not impressive and ekg not dynamic
- Some upper left chest pain today
Acute heart failure, type unknown
- Improved, weight down to 64.8 kg. Move to PO Lasix 40 mg day
- Goal weight may be 64-65 k
- For now Lasix daily and add valsartan for BP
- Later (as outpatient) will add SGLT2-I if affordable and MRA
HTN
- Add valsartan to metoprolol and Lasix
Nonischemic myocardial injury for HF and medical illness, peak trop 0.061
N/V
- Uncertain etiology
- GI involved
Urolgy
- E. Coli in urine => ATB
- Cowen
- Suspected bladder mass
- retention
- Majano in place
- Urology involved
Hx of BRBPR
Acute on chronic anemia, etiology uncertain, not sure iron studied are from prior to PRBC transfusion
- S/p PRBC
DM
Psych Hx, ? schizophrenia, an old note from says mild dementia
GERD
Asthma
Hypothyroidism
Subjective:
+ CP but no dyspnea
Physical Exam
Vital Signs/Labs
Vital Signs
Temp Pulse Resp BP Pulse Ox
99.1 F 77 16 136/58 96
11/06/24 08:23 11/06/24 08:46 11/06/24 08:46 11/06/24 08:19 11/06/24 08:46
11/05/24 11/06/24 11/07/24
06:59 06:59 06:59
Actual Weight 66.8 kg 64.8 kg
11/06/24 05:30
11/06/24 05:30
PT 13.9 Sec (11.4-14.6) 11/04/24 01:33
PT Cancelled 11/04/24 01:33
INR 1.04 11/04/24 01:33
INR Cancelled 11/04/24 01:33
APTT 30.1 Sec (23.4-35.0) 11/04/24 01:33
Magnesium 1.5 mg/dl (1.6-2.3) L 11/06/24 05:30
Triglycerides 109 mg/dl (10-149) 11/04/24 06:00
LDL Cholesterol, Calc 55 mg/dl 11/04/24 06:00
VLDL Cholesterol, Calc 21 mg/dl (0-30) 11/04/24 06:00
HDL Cholesterol 94 mg/dl 11/04/24 06:00
11/04/24
01:25
Qzz-F-Jffeixkjjyj Pept 4620
LAB Results
11/04/24 11/04/24 11/04/24
01: 03:25 06:00
Troponin I 0.061 H* 0.060 H* 0.060 H*
11/04/24 11/04/24 11/05/24
09:07 11:33 03:06
Troponin I 0.057 H* Cancelled 0.047 H*
Physical Exam
Constitutional: No acute distress
EENT: Anicteric
Cardiovascular: Rhythm & rate is regular and Pedal edema is absent
Respiratory: Respiratory effort normal and Lungs clear to auscul.
GI: Soft and Distention absent
Neuro/Psych: AO x 3
Data Reviewed
-
Date of Service: November 06, 2024
--- NOTE | 2024-11-06 10:08 | CM ---
Chart reviewed. Patient is independent of ADLS, somali speaking, lives with her son in a [address] [facility], 2 [email or web address]], ambulates with a RW. Plan is for the patient to return home. CM to follow
[2024-11-06] MEDS: LASIX IV (10:48)
[2024-11-06] MEDS: MAGNESIUM SULFATE 100 IV (10:53)
--- NOTE | 2024-11-06 11:15 | CM ---
Pricing on Farxiga and Jardiance through the patient's prescription plan are both covered at a $0 copay
[2024-11-06 11:30] LABS: Urine Sodium 15 mmol/L (30-90)
[2024-11-06 11:35] LABS: Urine Uric Acid 26.3 mg/dl
[2024-11-06 11:53] VITALS: BP 116/49
[2024-11-06 12:41] LABS: Glucose - Point of Care 284 mg/dl (70-99)
[2024-11-06] MEDS: FARXIGA 10 MG PO (13:09)
[2024-11-06] MEDS: STERILE WATER FOR INJECTION 10 ML IV (13:09)
[2024-11-06] MEDS: ROCEPHIN 1000 MG IV (13:10)
[2024-11-06] MEDS: DEPACON 52.5 MG IV (13:10)
[2024-11-06] MEDS: NOVOLOG FLEXPEN-MODERATE RESISTANCE 5 UNITS SC (13:35)
--- NOTE | 2024-11-06 14:24 | W.PN.URO.CBU ---
Today's Communication / Plan
-
keep fink for now outpatient eval bladder mass
Assessment / Plan
-
POSSOBLE HEMATURIA FROM BLADDER MASS BUT VCAN BE FROM CHRONIC CYSTIS PT DOES HAVE MOEDERATE RETENTION BILATERAL HYDRO AN WILL BENFIT FROM FINK FOR NOW IN LONG RUN CYSTO NEEDED FOR ECVAL BUT NOIT DURING CHF AND GI BLEED
Diagnosis
-
Date of Service: November 06, 2024
-
Patient Diagnosis:
Post Op Day:
Patient Diagnosis:
Post Op Day:
Patient Diagnosis:POSSIBLE BLADDER MASS AND DEFINITE URINARY RETENTION WITH MILD BILATERAL HYDRONEPHROSIS AND MENDOZA IN PT WITH GI BLEED AND CHF
Post Op Day:
Subjective
-
no gu changes
Objective
-
Vital Signs
Temp Pulse Resp BP Pulse Ox
98.6 F 73 18 116/49 88
11/06/24 11:53 11/06/24 12:00 11/06/24 11:53 11/06/24 11:53 11/06/24 13:38
Intake and Output
11/05/24 11/06/24 11/07/24
06:59 06:59 06:59
Intake Total 200 / 200 1265 / 1265 375 / 375
Output Total 3900 / 3900 4050 / 4050 175 / 175
Balance -3700 / -3700 -2785 / -2785 200 / 200
Intake:
Oral fluids 200 / 200 960 / 960 120 / 120
IV piggybacks 305 / 305 255 / 255
Output:
Urine, Fink 1200 / 1200 950 / 950 175 / 175
Urine, Voided 1000 / 1000 3100 / 3100
Straight cath output 1700 / 1700
Laboratory Results
11/06/24 05:30
11/06/24 05:30
Review of Systems
-
: Difficulty Voiding
Physical Exam
-
General - well developed, well nourished, no acute distress
Chest - clear bilaterally
Abdomen - soft, non-tender, positive bowel sounds, no CVAT, no incisional pain or distention
Genitalia - normal
Rectal - normal
Skin - warm & dry with no rash
Neuro - AOx3, no motor deficits
Extremities - no clubbing, no cyanosis, no edema
Incision - clean, dry
Dressing - clean, dry, intact
--- NOTE | 2024-11-06 14:48 | PTCARENOTE ---
Patient seen by hospitalist, for transfer to telemetry. Blood cultures and urines sent to the lab this morning. Patient given mag rider as ordered, IV lasix held as instructed this morning. Patient more alert when family came to visit although they
state that she is still confused. Attempted to wean her off of O2, pulse ox 94% on RA however when she is asleep, pulse ox was 88%. Patient maintained on 2L NC at this time.
--- NOTE | 2024-11-06 15:25 | W.PN.HOSP.TC ---
Today's Communication/Plan
-
cont abx
switch to po lasix
farxiga
depakote level, switch to PO
wean o2
incentive nirali/acapella
add valsartan
monitor renal function
Monitor Na with diuresis - f/u urine na/Osm
Assessment / Plan
Assessment / Plan
Physical Exam
General: Well Developed, Well Nourished, Appears in Distress and Appears Chronically Ill
HEENT: Nose Appears Normal, Ears Appear Normal and Oxygen; No Good Dentition
Respiratory: Rales, Rhonchi, Crackles and Decreased Breath Sounds
Cardiac: S1/S2 and Regular Rhythm
GI: Soft, Non Tender and Non Distended
Musculoskeletal: No Clubbing, No Cyanosis and No Edema
Skin: Warm and Dry
Neuro: Awake and Alert; mental status appears improved from yesterday
Psych: Anxious
#Chest Pain
-suspect discomfort and nausea as midepigastric rather than cardiac in nature
-trops mild
-chest pain resolved
-f/u echo - EF 55-60% with no wall motion abnormalities
-restart asa
#Elevated Troponin
-Most likely nonischemic myocardial injury secondary to complicated UTI, sepsis
� EF 55-60% with no wall motion abnormalities
� Cardiology involved
#Acute HFpEF
#Bilateral pleural effusions
� Follow-up echo
�switch to PO lasix
-Start Farxiga 10 mg daily.
-Continue Na+/fluid restriction
Add Valsartan for BP control
Later add MRA and SGLT2-I (will ask case management to check cost of SGLT2-I but add as outpatient
#Acute Hypoxic Respiratory Failure
-probably 2/2 to Acute HFpEF although also probably deconditioning/atelectasis
-monitor with diuresis
-early ambulation
-incentive nirali, acapella
#Sepsis
#Complicated UTI
� Has some history of diverticulitis in June 2024, no diverticulitis on imaging this admission
� Switch to ceftriaxone; can dc flagyl and monitor
#Nausea, abdominal discomfort
� Resolved, suspect 2/2 to hydro/uti
� Normal bowel movements
� Advance diet and assess, advance diet as tolerated okay
�Follow-up cervical level
#Hematuria
#Urinary retention
#Bilateral hydronephrosis
� Has bladder mass, possibly secondary to this
� Continue Fink
� Will need cystoscopy outpatient
#Microcytic anemia
#Acute blood loss anemia
-possible 2/2 to mild hematuria -monitor
� Hemoglobin stable
� Stool brown, heme-negative
� Status post 1 unit PRBC
� Follow-up outpatient for colonoscopy +/- EGD
� Resume aspirin and monitor hemoglobin
#Hyponatremia - acute on chronic - likely hypervolemic hyponatremia with hydro
Should improve with diuresis/fink
ctm with resuscitation
F/u Urine Osm/urine NA
already has minimal intake
#Insulin dependent glucose
cont home regimen
a1c - 7
#Hypomagnesemia
� Monitor and replete
#Essential HTN -
Add valsartan to metoprolol and Lasix
#Hypothyroidism
#GERD
#schizophrenia
-Continue home meds
#Trace amount of fluid along both paracolic gutters as above, indeterminate etiology.
-f/u outpt
Full code
restart hsq if no hematuria and hgb stable
Total time spent on today's encounter was 55 minutes which included time spent in counseling the patient/family regarding diagnosis and treatment plan as listed above, goals of care, and symptom management. Case was discussed with nursing staff,
specialists, and care coordinators/case management. All labs and imaging personally reviewed by me. Remainder the time spent in detailed review of previous records, lab data, imaging, and other medical provider documentation.
Anticipated Discharge: Today
Subjective/Interval History
-
Date of Service: November 06, 2024
Mental status appears improved
Objective Data
-
Labs:
Laboratory Results
11/06/24
05:30
WBC 11.2 H
Hgb 9.4 L
Hct 27.8 L
Plt Count 291
Sodium 126 L
Potassium 3.6
Chloride 82 L
Carbon Dioxide 37 H
BUN 15
Creatinine 1.2 H
Glucose 110 H
Calcium 8.3 L
Total Bilirubin 0.4
AST 20
ALT 15
Alkaline Phosphatase 85
Vital Signs:
Vital Signs
Temp Pulse Resp BP Pulse Ox
98.6 F 73 18 116/49 88
11/06/24 11:53 11/06/24 12:00 11/06/24 11:53 11/06/24 11:53 11/06/24 13:38
I&O
11/05/24 11/06/24 11/07/24
06:59 06:59 06:59
Intake Total 200 / 200 1265 / 1265 375 / 375
Output Total 3900 / 3900 4050 / 4050 175 / 175
Balance -3700 / -3700 -2785 / -2785 200 / 200
Review of Systems
-
History Source: Patient
All other systems: Not reviewed unless documented
Data Reviewed
-
Diagnostic Radiology: Report Reviewed by me
CT Scan: Report Reviewed by me
Labs: Labs Reviewed by me
--- NOTE | 2024-11-06 15:36 | PTCARENOTE ---
Report called to [facility] on 4E, patient transferred on a stretcher on 2L NC with her belongings, family accompanying her.
[2024-11-06 16:11] VITALS: BP 117/52
--- NOTE | 2024-11-06 16:18 | PTCARENOTE ---
received pt in transfer from IVU on a stretcher, accompanied by volunteer. Pt drowsy but arousable; oriented to self/? place, speaks [place]uran; understands some gestures. Language line in room for use. VSS. Placed on telemetry:NSR. On nc 2 lpm--
pulse ox 98%, no SOB noted. Abd large, soft, to be on 2000 timmy diet. Majano P/I clear rao urine in small amts. Resting in bed at present; family at bedside. Will continue to monitor.
[2024-11-06 16:32] LABS: Osmolality Urine 276 mOsm/kg (300-900)
[2024-11-06] MEDS: HEPARIN 5000 UNITS SC (16:35)
[2024-11-06 16:45] LABS: Glucose - Point of Care 105 mg/dl (70-99)
[2024-11-06 16:59] LABS: Depakane 43.3 ug/ml (50.0-120.0)
[2024-11-06 17:09] LABS: TSH Reflex To Free T4 8.14 uIU/ml (0.47-4.68)
[2024-11-06] MEDS: CRESTOR 20 MG PO (17:17)
[2024-11-06 17:36] LABS: Free T4 1.02 ng/dl (0.78-2.19)
[2024-11-06 19:55] VITALS: BP 132/56
[2024-11-06 22:00] LABS: Glucose - Point of Care 138 mg/dl (70-99)
[2024-11-06] MEDS: LANTUS 0.1 UNITS SC (22:11)
[2024-11-06] MEDS: RISPERDAL 2 MG PO (22:11)
[2024-11-06] MEDS: DEPAKOTE ER (24 HR RELEASE) 500 MG PO (22:11)
[2024-11-06 23:11] VITALS: BP 110/50
[2024-11-07] VITALS (8 sets, daily range): BP systolic 100–145; BP diastolic 40–62; PULSE 60–61; O2SAT 98; BMI 25.6
[2024-11-07] MEDS: FLAGYL 500 MG 100 IV ×4 (00:29→23:33)
[2024-11-07] MEDS: HEPARIN 5000 UNITS SC ×4 (00:30→23:32)
[2024-11-07] MEDS: SYNTHROID 25 MCG PO (05:10)
[2024-11-07 07:13] LABS: Hematocrit 27.3 % (37.0-47.0); Hemoglobin 9.1 g/dL (12.0-16.0); Mean Corp Hgb Conc. 33.3 g/dL (33.0-37.0); Mean Corpuscular Hgb 26.7 pg (27.0-31.0); Mean Corpuscular Volume 80.1 fL (81.0-99.0); Mean Platelet Volume 10.7 fL (7.4-10.4); Platelet Count 272 10^3/uL (130-400); Red Blood Cell Count 3.41 10^6/uL (4.20-5.40); Red Cell Dist. Width 15.5 % (11.5-14.5); White Blood Cell Count 10.6 10^3/uL (4.8-10.8)
[2024-11-07] MEDS: ADVAIR HFA 115/21 MCG INHALER 2 PUFF INH ×2 (07:26→19:25)
[2024-11-07] MEDS: ProAIR HFA INHALER 2 PUFF INH (07:27)
[2024-11-07 07:40] LABS: ALT (SGPT) 14 U/L (0-35); AST (SGOT) 24 U/L (14-36); Albumin 3.2 g/dl (3.5-5.0); Alkaline Phosphatase 83 U/L (38-126); Blood Urea Nitrogen 21 mg/dl (7-17); Calcium 8.3 mg/dl (8.4-10.2); Carbon Dioxide 36 mmol/L (22-30); Chloride 82 mmol/L (98-107); Estimated Creatinine Clearance 27 ml/min; Glucose 112 mg/dl (70-99); Magnesium 2.5 mg/dl (1.6-2.3); Potassium 3.6 mmol/L (3.5-5.1); Sodium 124 mmol/L (135-145); Total Bilirubin 0.3 mg/dl (0.2-1.3); Total Protein 5.8 g/dl (6.3-8.2); eGFR 43.54
[2024-11-07 07:43] LABS: Glucose - Point of Care 138 mg/dl (70-99)
[2024-11-07 08:37] LABS: Glucose - Point of Care 130 mg/dl (70-99)
[2024-11-07] MEDS: NOVOLOG FLEXPEN-MODERATE RESISTANCE SC (08:38)
[2024-11-07] MEDS: NSS (PRESERVATIVE FREE) 10 ML IV (08:39)
[2024-11-07] MEDS: PROTONIX IV 40 MG IV (08:40)
[2024-11-07] MEDS: IMDUR (EXTENDED RELEASE) 30 MG PO (08:40)
[2024-11-07] MEDS: LASIX 40 MG PO (08:40)
[2024-11-07] MEDS: LOW STRENGTH ASPIRIN 81 MG PO (08:40)
[2024-11-07] MEDS: DIOVAN 80 MG PO (08:40)
[2024-11-07] MEDS: RISPERDAL 1 MG PO (08:40)
[2024-11-07] MEDS: TOPROL XL 25 MG PO ×2 (08:40→21:12)
[2024-11-07] MEDS: FARXIGA 10 MG PO (08:40)
--- NOTE | 2024-11-07 09:05 | PTOTSP ---
Speech Language Pathology
Pt seen for clinical bedside swallow evaluation. Known to [facility] department at with [facility] 03/06/21 with transient laryngeal penetration and no aspiration. Recommendations at that time were for regular solids/thin liquids and consideration for GI
consult.
GI saw pt this admission with plan for OP EGD/colonoscopy. CXR not concerning for aspiration, and WBC WNL. P.O. trials of regular solids and thin liquids provided. Adequate mastication, bolus formation, and A-P transit noted with no oral residue.
No overt signs of aspiration.
Recommend:
(1) Continue regular solids/thin liquids
(2) General aspiration precautions
(3) Esophageal precautions
(4) Meds as tolerated
(5) CLOTH TEARER to sign off. Please reconsult as indicated
--- NOTE | 2024-11-07 10:21 | W.PN.CD ---
Today's Communication / Plan
-
Continue current therapy
No objection to discharge
BMP in 1-2 weeks
Impression / Plan
-
CP
- uncertain etiology, not likely of ischemic etiology
Acute heart failure, HFpEF
- Improved
- Goal weight may be 64-65 k
- For now Lasix, valsartan, Farxiga
- Later (as outpatient) add MRA
HTN
- Valsartan, metoprolol, and Lasix
Nonischemic myocardial injury for HF and medical illness, peak trop 0.061
N/V
- Uncertain etiology
- GI involved
Urology
- E. Coli in urine => ATB
- [place]
- Suspected bladder mass
- retention
- Majano in place
- Urology involved
Hx of BRBPR
Acute on chronic anemia, etiology uncertain, not sure iron studied are from prior to PRBC transfusion
- S/p PRBC
DM
Psych Hx, ? schizophrenia, an old note from says mild dementia
GERD
Asthma
Hypothyroidism
Subjective:
No complaints today but not cooperative
Echo 11/05/2024:
CONCLUSIONS
Normal biventricular size and systolic function without regional wall motion
abnormality. LVEF 55-60%.
Mild tricuspid regurgitation with top normal pulmonary artery pressures (35
mmHg).
Aortic sclerosis without stenosis.
No change compared to prior echocardiogram in 2010.
Physical Exam
Vital Signs/Labs
Vital Signs
Temp Pulse Resp BP Pulse Ox
98.5 F 81 18 145/58 96
11/07/24 07:30 11/07/24 07:30 11/07/24 07:30 11/07/24 08:40 11/07/24 07:30
11/06/24 11/07/24 11/08/24
06:59 06:59 06:59
Actual Weight 64.8 kg 65.544 kg
11/07/24 06:42
11/07/24 06:42
PT 13.9 Sec (11.4-14.6) 11/04/24 01:33
PT Cancelled 11/04/24 01:33
INR 1.04 11/04/24 01:33
INR Cancelled 11/04/24 01:33
APTT 30.1 Sec (23.4-35.0) 11/04/24 01:33
Magnesium 2.5 mg/dl (1.6-2.3) H 11/07/24 06:42
Triglycerides 109 mg/dl (10-149) 11/04/24 06:00
LDL Cholesterol, Calc 55 mg/dl 11/04/24 06:00
VLDL Cholesterol, Calc 21 mg/dl (0-30) 11/04/24 06:00
HDL Cholesterol 94 mg/dl 11/04/24 06:00
Free T4 1.02 ng/dl (0.78-2.19) 11/06/24 05:30
11/04/24
01:25
Hvd-N-Aegmfjewrdt Pept 4620
LAB Results
11/04/24 11/05/24
11:33 03:06
Troponin I Cancelled 0.047 H*
Physical Exam
Constitutional: No acute distress
EENT: Anicteric
Cardiovascular: Rhythm & rate is regular and Pedal edema is absent
Respiratory: Respiratory effort normal and Lungs clear to auscul.
GI: Soft and Distention absent
Neuro/Psych: Alert
Data Reviewed
-
Date of Service: November 07, 2024
[2024-11-07 11:41] LABS: Glucose - Point of Care 188 mg/dl (70-99)
--- NOTE | 2024-11-07 12:28 | W.CON.NEPH ---
Consultation
-
Date/Time Consultation Requested: 11/07/2024 10:00 AM
Date/Time Consultation Performed: 11/07/2024 12:30 PM
Requesting Provider:
Performing Provider: Dr. Shah
Reason for Consultation: Hyponatremia/MENDOZA/hydronephrosis
Medical History
-
Chief Complaint: Hyponatremia acute kidney injury hydronephrosis
History of Present Illness:
89-year-old woman who came in initially for evaluation of generalized weakness and fatigue. She also had complaints of shortness of breath and chest discomfort. She was on antibiotics for UTI prior to her ER visit. The patient has a history of
schizophrenia and is maintained on valproic acid and risperidone. family stated that she has been developing bright red rectal bleeding. On presentation to the emergency room her sodium was depressed to 123. It then peaked at 127 a day later and
is now back to 124 despite being on a fluid restriction and lasix . Nephrology was asked to see the patient. The patient was also noted with acute heart failure on presentation and has been maintained on Lasix. She has suspected bladder mass with
subsequent hydronephrosis noted on imaging study . She does have a prior history of ongoing hyponatremia but her last serum sodium level from 11/01/2024 was stable at 135. of note her creatinine escalated from 0.9 on admission up to 1.2 and she was
noted to have hydronephrosis for which a Fink catheter has been placed. She also has diagnosed E. coli UTI.
Past Medical History
Schizophrenia, unspecified typeControlled type 2 diabetes mellitus with hyperglycemia, without long-term current use of insulin
Slow transit constipation
Moderate persistent asthma with exacerbation
hypothyroidism
obesity due to excess calories
Backache
Migraine Headache
Esophagus Reflux (GERD)
diverticulitis
Hyponatremia
Social History
Tobacco: Non-Smoker
Alcohol: None
Drug: None
Family History
NO CKD
Allergies / Home Medications
Allergy/AdvReac Type Severity Reaction Status Date / Time
No Known Drug Allergies Allergy Unknown Verified 11/04/24 00:38
�Medication �Instructions �Recorded �Confirmed �Type
insulin glargine 100 unit/mL 10 units SC HS Diabetes 09/27/11 11/04/24 History
subcutaneous solution (Lantus
U-100 Insulin)
divalproex 500 mg tablet,delayed 500 mg PO HS Neurological Condition 12/08/11 11/04/24 History
release
acetaminophen 325 mg tablet 650 mg PO DAILYPRN PRN mild pain 05/22/19 11/04/24 History
albuterol sulfate 90 mcg/actuation 2 puff inhalation R Q4HPRN PRN sob 05/22/19 11/04/24 History
aerosol inhaler
fluticasone 100 mcg-salmeterol 50 1 puff inhalation R BID 05/22/19 11/04/24 History
mcg/dose blistr powdr for Lung/Breathing Issues
inhalation
metformin 1,000 mg tablet 1,000 mg PO BID@0800,1700 Diabetes 05/22/19 11/04/24 History
risperidone 1 mg tablet 1 mg PO DAILY Mental Health/Anxiety 05/22/19 11/04/24 History
risperidone 2 mg tablet 2 mg PO HS Mental Health/Anxiety 05/22/19 11/04/24 History
levothyroxine 25 mcg tablet 25 mcg PO DAILY AT 0700 ##30 05/24/19 11/04/24 Rx
acetaminophen 650 mg 650 mg PO HS Pain 03/02/21 11/04/24 History
tablet,extended release (Tylenol
Arthritis)
albuterol sulfate 2.5 mg/3 mL 2.5 mg inhalation R Q4HPRN PRN 03/02/21 11/04/24 History
(0.083 %) solution for nebulization SOB/wheeze
cephalexin 500 mg capsule 500 mg PO BID Urinary issue 7 days 05/17/23 11/04/24 Rx
#14 caps
amoxicillin 875 mg-potassium 1 tab PO BID Gastrointestinal 10/21/24 11/04/24 Rx
clavulanate 125 mg tablet issue #19 tabs
pantoprazole 40 mg tablet,delayed 40 mg PO DAILY Gastrointestinal 10/21/24 11/04/24 Rx
release (Protonix) issue #30 tabs
levofloxacin 500 mg tablet 500 mg PO DAILY Gastrointestinal 11/02/24 11/04/24 Rx
issue 7 days #7 tabs
metronidazole 500 mg tablet 500 mg PO TID Gastrointestinal 11/02/24 11/04/24 Rx
issue #21 tabs
ondansetron 4 mg disintegrating 4 mg PO Q8H PRN nausea and 11/02/24 11/04/24 Rx
tablet vomiting #10 tabs
amoxicillin 875 mg-potassium 1 tab PO BID Infection 11/05/24 11/04/24 History
clavulanate 125 mg tablet
furosemide 20 mg tablet 10 mg PO DAILY Fluid 11/05/24 11/04/24 History
Retention/Swelling
Review of Systems
-
Unable to obtain full review of systems at this time due to: Dementia
All other systems: Negative unless noted
Physical Exam
Vital Signs
Vital Signs
Temp Pulse Resp BP Pulse Ox
97.8 F 64 18 100/40 100
11/07/24 11:23 11/07/24 11:23 11/07/24 11:23 11/07/24 11:23 11/07/24 11:23
Lab Results
11/07/24 06:42
11/07/24 06:42
WBC 10.6 10^3/uL (4.8-10.8) 11/07/24 06:42
RBC 3.41 10^6/uL (4.20-5.40) L 11/07/24 06:42
Hgb 9.1 g/dL (12.0-16.0) L 11/07/24 06:42
Hct 27.3 % (37.0-47.0) L 11/07/24 06:42
Plt Count 272 10^3/uL (130-400) 11/07/24 06:42
Sodium 124 mmol/L (135-145) L 11/07/24 06:42
Potassium 3.6 mmol/L (3.5-5.1) 11/07/24 06:42
Chloride 82 mmol/L (98-107) L 11/07/24 06:42
Carbon Dioxide 36 mmol/L (22-30) H 11/07/24 06:42
BUN 21 mg/dl (7-17) H 11/07/24 06:42
Creatinine 1.2 mg/dL (0.6-1.0) H 11/07/24 06:42
eGFR 43.54 11/07/24 06:42
Glucose 112 mg/dl (70-99) H 11/07/24 06:42
Calcium 8.3 mg/dl (8.4-10.2) L 11/07/24 06:42
Yyx-V-Oqpxcexvaby Pept 4620 pg/ml 11/04/24 01:25
Albumin 3.2 g/dl (3.5-5.0) L 11/07/24 06:42
Physical Exam
General: Demented lhy-Opoeqwp-qjksxdre, nontoxic in appearance no acute distress
HEENT: PERRL, EOMI, Anicteric, Conjunctivae Clear, Ear/Nose Intact, Hearing Normal, Oropharynx Clear/Moist, Dentition Intact, Facial Symmetry, Neck Supple, Neck: Trachea Midline, No JVD and No Thyromegaly, no Bruits
Respiratory: Clear to auscultation bilaterally with normal lung exersion
Cardiac: S1/S2 and Regular Rate/Rhythm
Breast: Deferred by me
Abdomen: Soft, Nontender, Nondistended, Normal Bowel Sounds and No Hepatosplenomegaly
Rectal: Deferred by Provider
Genito-urinary: No Costovertebral Tenderness
Extremities: No Clubbing, No Cyanosis and No Edema
Skin: No Rash or open lesions
Neuro: Nonfocal/Grossly Intact, CN II-XII (Intact) and Strength (Musculoskeletal exam 5 out of 5 both upper and lower extremities)
Hematologic/Lymphatic: No Cervical Lymphadenopathy, No Submandibular Lymphadenopathy and No Supraclavicular Lymphadenopathy
Psych: Mood/afflect pleasant, Insight/judgement good and Appropriate
Vascular: plus 1 pedal and radial pulses
Data Reviewed
-
Radiology: Image Personally Visualized and interpreted (Chest x-ray personally reviewed showed bilateral interstitial edema)
Labs: Labs Reviewed by me ([facility] CBC urinalysis, urine osmolality 276 urine sodium 15 urine creatinine 83)
Old Records: Reviewed (Previous labs reviewed from 11/01/2023 sodium 135 creatinine 0.7)
Assessment/Plan
-
Impression:
Hyponatremia (acute on chronic)
MENDOZA
Hydronephrosis
Decompensated congestive heart
Diabetes
Anemia with bright red blood per rectum
Hypertension
Hypothyroid
Schizophrenia
Plan:
Hyponatremia:
Fluid restrict
Lasix continued
Will provide Samsca 7.5 mg p.o. x 1
I suspect hyponatremia is likely related to congestive heart failure in combination with antipsychotics
MENDOZA:
-?hydronephrosis
-now with fink and remains non oliguric
--- NOTE | 2024-11-07 12:54 | W.PN.URO.CBU ---
Today's Communication / Plan
-
home when stab e outpatioent eval for fink and bladder mass
Assessment / Plan
-
POSSOBLE HEMATURIA FROM BLADDER MASS BUT VCAN BE FROM CHRONIC CYSTIS PT DOES HAVE MOEDERATE RETENTION BILATERAL HYDRO AN WILL BENFIT FROM FINK FOR NOW IN LONG RUN CYSTO NEEDED FOR ECVAL BUT NOIT DURING CHF AND GI BLEED
Diagnosis
-
Date of Service: November 07, 2024
-
Patient Diagnosis:
Post Op Day:
Patient Diagnosis:
Post Op Day:
Patient Diagnosis:
Post Op Day:
Patient Diagnosis:POSSIBLE BLADDER MASS AND DEFINITE URINARY RETENTION WITH MILD BILATERAL HYDRONEPHROSIS AND MENDOZA IN PT WITH GI BLEED AND CHF
Post Op Day:
Subjective
-
no gu concerne
Objective
-
Vital Signs
Temp Pulse Resp BP Pulse Ox
97.8 F 64 18 100/40 100
11/07/24 11:23 11/07/24 11:23 11/07/24 11:23 11/07/24 11:23 11/07/24 11:23
Intake and Output
11/06/24 11/07/24 11/08/24
06:59 06:59 06:59
Intake Total 1265 / 1265 1635 / 1635
Output Total 4050 / 4050 1625 / 1625
Balance -2785 / -2785 10
Intake:
Oral fluids 960 / 960 1380 / 1380
IV piggybacks 305 / 305 255 / 255
Output:
Urine, Fink 950 / 950 1625 / 1625
Urine, Voided 3100 / 3100
Laboratory Results
11/07/24 06:42
11/07/24 06:42
Review of Systems
-
: Difficulty Voiding
Physical Exam
-
General - well developed, well nourished, no acute distress
Chest - clear bilaterally
Abdomen - soft, non-tender, positive bowel sounds, no CVAT, no incisional pain or distention
Genitalia - normal
Rectal - normal
Skin - warm & dry with no rash
Neuro - AOx3, no motor deficits
Extremities - no clubbing, no cyanosis, no edema
Incision - clean, dry
Dressing - clean, dry, intact
Care Review
Data Reviewed
Discussed with: Nursing
[2024-11-07] MEDS: NOVOLOG FLEXPEN-MODERATE RESISTANCE 1 UNITS SC (13:00)
[2024-11-07] MEDS: STERILE WATER FOR INJECTION 10 ML IV (13:02)
[2024-11-07] MEDS: ROCEPHIN 1000 MG IV (13:02)
[2024-11-07] MEDS: SAMSCA 7.5 MG PO (13:26)
--- NOTE | 2024-11-07 13:32 | W.PN.HOSP.TC ---
Today's Communication/Plan
-
Continue antibiotics
Renal consulted
Samsca, follow-up sodium level
Assessment / Plan
Assessment / Plan
Physical Exam
General: Well Developed, Well Nourished, Appears in Distress and Appears Chronically Ill
HEENT: Nose Appears Normal, Ears Appear Normal and Oxygen; No Good Dentition
Respiratory: Rales, Rhonchi, Crackles and Decreased Breath Sounds
Cardiac: S1/S2 and Regular Rhythm
GI: Soft, Non Tender and Non Distended
Musculoskeletal: No Clubbing, No Cyanosis and No Edema
Skin: Warm and Dry
Neuro: Awake and Alert; mental status appears improved from yesterday
Psych: Anxious
#Chest Pain
-suspect discomfort and nausea as midepigastric rather than cardiac in nature
-trops mild
-resolved
-f/u echo - EF 55-60% with no wall motion abnormalities
-restart asa
#Elevated Troponin
-Most likely nonischemic myocardial injury secondary to complicated UTI, sepsis
� EF 55-60% with no wall motion abnormalities
� Cardiology involved
#Acute HFpEF
#Bilateral pleural effusions
� Follow-up echo
�switch to PO lasix
-Start Farxiga 10 mg daily.
-Continue Na+/fluid restriction
Add Valsartan for BP control
Later add MRA and SGLT2-I (will ask case management to check cost of SGLT2-I but add as outpatient
#Acute Hypoxic Respiratory Failure
-probably 2/2 to Acute HFpEF although also probably deconditioning/atelectasis
-monitor with diuresis
-early ambulation
-incentive nirali, acapella
#Sepsis
#Complicated UTI
� Has some history of diverticulitis in June 2024, no diverticulitis on imaging this admission
� Switch to ceftriaxone; can dc flagyl and monitor
#Nausea, abdominal discomfort
� Resolved, suspect 2/2 to hydro/uti
� Normal bowel movements
� Advance diet and assess, advance diet as tolerated okay
�Follow-up cervical level
#Hematuria
#Urinary retention
#Bilateral hydronephrosis
� Has bladder mass, possibly secondary to this
� Continue Fink
� Will need cystoscopy outpatient
#Microcytic anemia
#Acute blood loss anemia
-possible 2/2 to mild hematuria -monitor
� Hemoglobin stable
� Stool brown, heme-negative
� Status post 1 unit PRBC
� Follow-up outpatient for colonoscopy +/- EGD
� Resume aspirin and monitor hemoglobin
#Hyponatremia - acute on chronic - likely hypervolemic hyponatremia with hydro
Should improve with diuresis/fink
ctm with resuscitation
Renal consulted
Naylor provided
Fluid restriction
already has minimal intake
#Insulin dependent glucose
cont home regimen
a1c - 7
#Hypomagnesemia
� Monitor and replete
#Essential HTN -
Add valsartan to metoprolol and Lasix
#Hypothyroidism
#GERD
#schizophrenia
-Continue home meds
#Trace amount of fluid along both paracolic gutters as above, indeterminate etiology.
-f/u outpt
Full code
restart hsq if no hematuria and hgb stable
Total time spent on today's encounter was 51 minutes which included time spent in counseling the patient/family regarding diagnosis and treatment plan as listed above, goals of care, and symptom management. Case was discussed with nursing staff,
specialists, and care coordinators/case management. All labs and imaging personally reviewed by me. Remainder the time spent in detailed review of previous records, lab data, imaging, and other medical provider documentation.
Anticipated Discharge: 24 - 48 hours
Subjective/Interval History
-
Date of Service: November 07, 2024
No acute events overnight
Objective Data
-
Labs:
Laboratory Results
11/07/24
06:42
WBC 10.6
Hgb 9.1 L
Hct 27.3 L
Plt Count 272
Sodium 124 L
Potassium 3.6
Chloride 82 L
Carbon Dioxide 36 H
BUN 21 H
Creatinine 1.2 H
Glucose 112 H
Calcium 8.3 L
Total Bilirubin 0.3
AST 24
ALT 14
Alkaline Phosphatase 83
Vital Signs:
Vital Signs
Temp Pulse Resp BP Pulse Ox
97.8 F 64 18 100/40 100
11/07/24 11:23 11/07/24 11:23 11/07/24 11:23 11/07/24 11:23 11/07/24 11:23
I&O
11/06/24 11/07/24 11/08/24
06:59 06:59 06:59
Intake Total 1265 / 1265 1635 / 1635
Output Total 4050 / 4050 1625 / 1625
Balance -2785 / -2785
Review of Systems
-
History Source: Patient
All other systems: Not reviewed unless documented
Data Reviewed
-
Diagnostic Radiology: Report Reviewed by me
CT Scan: Report Reviewed by me
Labs: Labs Reviewed by me
[2024-11-07 16:47] LABS: Glucose - Point of Care 207 mg/dl (70-99)
[2024-11-07] MEDS: CRESTOR 20 MG PO (17:17)
[2024-11-07] MEDS: NOVOLOG FLEXPEN-MODERATE RESISTANCE 3 UNITS SC (17:18)
[2024-11-07] MEDS: RISPERDAL 2 MG PO (21:13)
[2024-11-07] MEDS: DEPAKOTE ER (24 HR RELEASE) 500 MG PO (21:13)
[2024-11-07] MEDS: LANTUS 0.1 UNITS SC (21:13)
[2024-11-07 21:17] LABS: Glucose - Point of Care 110 mg/dl (70-99)
[2024-11-08 03:06] VITALS: BP 112/51
[2024-11-08] MEDS: SYNTHROID 25 MCG PO (05:36)
[2024-11-08 06:00] VITALS: BMI 25.6
[2024-11-08 08:00] LABS: Hematocrit 28.5 % (37.0-47.0); Mean Corp Hgb Conc. 31.6 g/dL (33.0-37.0); Mean Corpuscular Volume 82.4 fL (81.0-99.0); Mean Platelet Volume 10.4 fL (7.4-10.4); Platelet Count 276 10^3/uL (130-400); Red Blood Cell Count 3.46 10^6/uL (4.20-5.40); Red Cell Dist. Width 15.6 % (11.5-14.5); White Blood Cell Count 8.9 10^3/uL (4.8-10.8)
[2024-11-08] MEDS: ProAIR HFA INHALER 2 PUFF INH (08:19)
[2024-11-08] MEDS: ADVAIR HFA 115/21 MCG INHALER 2 PUFF INH ×2 (08:19→19:12)
[2024-11-08 08:32] LABS: Glucose - Point of Care 124 mg/dl (70-99)
[2024-11-08 08:43] VITALS: BP 115/50
[2024-11-08 08:47] LABS: ALT (SGPT) 12 U/L (0-35); AST (SGOT) 20 U/L (14-36); Albumin 3.1 g/dl (3.5-5.0); Alkaline Phosphatase 71 U/L (38-126); Blood Urea Nitrogen 22 mg/dl (7-17); Calcium 8.1 mg/dl (8.4-10.2); Carbon Dioxide 37 mmol/L (22-30); Chloride 89 mmol/L (98-107); Estimated Creatinine Clearance 29 ml/min; Glucose 112 mg/dl (70-99); Magnesium 2.3 mg/dl (1.6-2.3); Potassium 4.2 mmol/L (3.5-5.1); Sodium 131 mmol/L (135-145); Total Bilirubin 0.2 mg/dl (0.2-1.3); Total Protein 5.5 g/dl (6.3-8.2); eGFR 48.33
[2024-11-08] MEDS: IMDUR (EXTENDED RELEASE) 30 MG PO (09:07)
[2024-11-08] MEDS: NOVOLOG FLEXPEN-MODERATE RESISTANCE SC (09:07)
[2024-11-08] MEDS: FLAGYL 500 MG 100 IV ×2 (09:07→15:26)
[2024-11-08] MEDS: RISPERDAL 1 MG PO (09:07)
[2024-11-08] MEDS: DIOVAN 80 MG PO (09:08)
[2024-11-08] MEDS: TOPROL XL 25 MG PO ×2 (09:08→21:15)
[2024-11-08] MEDS: FARXIGA 10 MG PO (09:08)
[2024-11-08] MEDS: HEPARIN 5000 UNITS SC ×2 (09:09→15:26)
[2024-11-08] MEDS: LOW STRENGTH ASPIRIN 81 MG PO (09:09)
[2024-11-08] MEDS: LASIX 40 MG PO (09:09)
[2024-11-08] MEDS: NSS (PRESERVATIVE FREE) 10 ML IV (09:10)
[2024-11-08] MEDS: PROTONIX IV 40 MG IV (09:10)
[2024-11-08] MEDS: TYLENOL 650 MG PO (10:06)
[2024-11-08 11:27] VITALS: BP 120/49
[2024-11-08] MEDS: ROCEPHIN 1000 MG IV (12:10)
[2024-11-08] MEDS: STERILE WATER FOR INJECTION 10 ML IV (12:10)
[2024-11-08 12:12] LABS: Glucose - Point of Care 170 mg/dl (70-99)
[2024-11-08] MEDS: NOVOLOG FLEXPEN-MODERATE RESISTANCE 1 UNITS SC ×2 (13:27→17:55)
--- NOTE | 2024-11-08 13:50 | W.PN.HOSP.TC ---
Today's Communication/Plan
-
Monitor Na s/p Samsca
Cont abx
Assessment / Plan
Assessment / Plan
Physical Exam
General: Well Developed, Well Nourished, Appears in Distress and Appears Chronically Ill
HEENT: Nose Appears Normal, Ears Appear Normal and Oxygen; No Good Dentition
Respiratory: Rales, Rhonchi, Crackles and Decreased Breath Sounds
Cardiac: S1/S2 and Regular Rhythm
GI: Soft, Non Tender and Non Distended
Musculoskeletal: No Clubbing, No Cyanosis and No Edema
Skin: Warm and Dry
Neuro: Awake and Alert; mental status appears improved from yesterday
Psych: Anxious
#Chest Pain
-suspect discomfort and nausea as midepigastric rather than cardiac in nature
-trops mild
-resolved
-f/u echo - EF 55-60% with no wall motion abnormalities
-restart asa
#Elevated Troponin
-Most likely nonischemic myocardial injury secondary to complicated UTI, sepsis
� EF 55-60% with no wall motion abnormalities
� Cardiology involved
#Acute HFpEF
#Bilateral pleural effusions
� echo - EF 55%; midl TR;
�switch to PO lasix
-Start Farxiga 10 mg daily.
-Continue Na+/fluid restriction
Add Valsartan for BP control
-Later add MRA and SGLT2-I (will ask case management to check cost of SGLT2-I but add as outpatient
#Acute Hypoxic Respiratory Failure, resolved
-probably 2/2 to Acute HFpEF although also probably deconditioning/atelectasis
-monitor with diuresis
-early ambulation
-incentive nirali, acapella
#Hyponatremia - acute on chronic
ctm with resuscitation
Renal consulted
Samsca provided
Fluid restriction
already has minimal intake
#Sepsis
#Complicated UTI
� Has some history of diverticulitis in June 2024, no diverticulitis on imaging this admission
� Switch to ceftriaxone; can dc flagyl and monitor
#Nausea, abdominal discomfort
� Resolved, suspect 2/2 to hydro/uti
� Normal bowel movements
� Advance diet and assess, advance diet as tolerated okay
�Follow-up cervical level
#Hematuria
#Urinary retention
#Bilateral hydronephrosis
� Has bladder mass, possibly secondary to this
� Continue Majano
� Will need cystoscopy outpatient
#Microcytic anemia
#Acute blood loss anemia
-possible 2/2 to mild hematuria -monitor
� Hemoglobin stable
� Stool brown, heme-negative
� Status post 1 unit PRBC
� Follow-up outpatient for colonoscopy +/- EGD
� Resume aspirin and monitor hemoglobin
#Insulin dependent glucose
cont home regimen
a1c - 7
#Hypomagnesemia
� Monitor and replete
#Essential HTN -
Add valsartan to metoprolol and Lasix
#Hypothyroidism
#GERD
#schizophrenia
-Continue home meds
#Trace amount of fluid along both paracolic gutters as above, indeterminate etiology.
-f/u outpt
Full code
restart hsq if no hematuria and hgb stable
Anticipated Discharge: Within 24 hours
Subjective/Interval History
-
Date of Service: November 08, 2024
no acute events
Objective Data
-
Labs:
Laboratory Results
11/08/24
07:48
WBC 8.9
Hgb 9.0 L
Hct 28.5 L
Plt Count 276
Sodium 131 L
Potassium 4.2
Chloride 89 L
Carbon Dioxide 37 H
BUN 22 H
Creatinine 1.1 H
Glucose 112 H
Calcium 8.1 L
Total Bilirubin 0.2
AST 20
ALT 12
Alkaline Phosphatase 71
Vital Signs:
Vital Signs
Temp Pulse Resp BP Pulse Ox
98.2 F 72 18 120/49 92
11/08/24 11:27 11/08/24 11:27 11/08/24 11:27 11/08/24 11:27 11/08/24 11:27
I&O
11/07/24 11/08/24 11/09/24
06:59 06:59 06:59
Intake Total 1635 / 1635 940 / 940 360 / 360
Output Total 1625 / 1625 2900 / 2900 650 / 650
Balance -1959 / -1959 -290 / -290
Review of Systems
-
History Source: Patient
All other systems: Not reviewed unless documented
Data Reviewed
-
Diagnostic Radiology: Report Reviewed by me
CT Scan: Report Reviewed by me
Labs: Labs Reviewed by me
--- NOTE | 2024-11-08 14:48 | W.PN.NEPH.PH ---
Today's Communication / Plan
-
Maintain fluid restriction and oral Lasix
Assessment/Plan
-
Impression:
Hyponatremia (acute on chronic)
MENDOZA
Hydronephrosis
Decompensated congestive heart
Diabetes
Anemia with bright red blood per rectum
Hypertension
Hypothyroid
Schizophrenia
Plan:
Hyponatremia:
Fluid restriction continues
Lasix continued at 40mg daily
s/p Samsca 7.5 mg p.o. x 1 on 11/07,, sodium up to 131
I suspect hyponatremia is likely related to congestive heart failure in combination with antipsychotics
MENDOZA:
-?hydronephrosis
-now with fink and remains non oliguric
-Creatinine down to 1.1
-
-
Date of Service: November 08, 2024
CC / HPI / ROS
-
Chief Complaint:
Hyponatremia
Acute kidney
History of Present Illness:
Creatinine down to 1.1
Hemodynamically stable
Serum sodium level up to 131 following Samsca administration on 11/07/2024
Review of Systems:
non oliguric
non belizean speaking
fink: 3.5 liters
Labs
-
Labs:
WBC 8.9 10^3/uL (4.8-10.8) 11/08/24 07:48
RBC 3.46 10^6/uL (4.20-5.40) L 11/08/24 07:48
Hgb 9.0 g/dL (12.0-16.0) L 11/08/24 07:48
Hct 28.5 % (37.0-47.0) L 11/08/24 07:48
Plt Count 276 10^3/uL (130-400) 11/08/24 07:48
Sodium 131 mmol/L (135-145) L 11/08/24 07:48
Potassium 4.2 mmol/L (3.5-5.1) 11/08/24 07:48
Chloride 89 mmol/L (98-107) L 11/08/24 07:48
Carbon Dioxide 37 mmol/L (22-30) H 11/08/24 07:48
BUN 22 mg/dl (7-17) H 11/08/24 07:48
Creatinine 1.1 mg/dL (0.6-1.0) H 11/08/24 07:48
eGFR 48.33 11/08/24 07:48
Glucose 112 mg/dl (70-99) H 11/08/24 07:48
Calcium 8.1 mg/dl (8.4-10.2) L 11/08/24 07:48
Iab-R-Iivwogxopxp Pept 4620 pg/ml 11/04/24 01:25
Albumin 3.1 g/dl (3.5-5.0) L 11/08/24 07:48
Physical Exam
-
Vital Signs:
Vital Signs
Temp Pulse Resp BP Pulse Ox
98.2 F 72 18 120/49 92
11/08/24 11:27 11/08/24 11:27 11/08/24 11:27 11/08/24 11:27 11/08/24 11:27
Cardiovascular:: Regular rate and rhythm
Respiratory:: Bilateral: CTA
Lung Excursion:: Normal
Abdomen:: Soft
Bowel Sounds:: Normal
Extremity Edema:: None: Bilateral:
Fink Catheter: Yes
[2024-11-08 15:50] VITALS: BP 124/53
[2024-11-08 16:50] LABS: Glucose - Point of Care 162 mg/dl (70-99)
[2024-11-08] MEDS: CRESTOR 20 MG PO (17:56)
[2024-11-08 19:00] VITALS: BP 119/49
[2024-11-08] MEDS: RISPERDAL 2 MG PO (21:15)
[2024-11-08] MEDS: DEPAKOTE ER (24 HR RELEASE) 500 MG PO (21:15)
[2024-11-08 21:52] LABS: Glucose - Point of Care 165 mg/dl (70-99)
[2024-11-08] MEDS: LANTUS 0.1 UNITS SC (21:57)
[2024-11-08 23:00] VITALS: BP 121/53
[2024-11-09] MEDS: FLAGYL 500 MG 100 IV ×4 (00:14→23:01)
[2024-11-09] MEDS: HEPARIN 5000 UNITS SC ×4 (00:15→23:00)
[2024-11-09 03:00] VITALS: BP 123/48
[2024-11-09] MEDS: SYNTHROID 25 MCG PO (05:00)
[2024-11-09 06:00] VITALS: BMI 25.2
[2024-11-09 07:45] LABS: Hematocrit 30.1 % (37.0-47.0); Hemoglobin 9.4 g/dL (12.0-16.0); Mean Corp Hgb Conc. 31.2 g/dL (33.0-37.0); Mean Corpuscular Hgb 25.9 pg (27.0-31.0); Mean Corpuscular Volume 82.9 fL (81.0-99.0); Mean Platelet Volume 10.6 fL (7.4-10.4); Platelet Count 279 10^3/uL (130-400); Red Blood Cell Count 3.63 10^6/uL (4.20-5.40); Red Cell Dist. Width 15.6 % (11.5-14.5)
[2024-11-09 08:22] LABS: Glucose - Point of Care 130 mg/dl (70-99)
[2024-11-09] MEDS: ADVAIR HFA 115/21 MCG INHALER 2 PUFF INH ×2 (08:31→19:30)
[2024-11-09 08:40] VITALS: BP 144/49
[2024-11-09 08:43] LABS: ALT (SGPT) 13 U/L (0-35); AST (SGOT) 23 U/L (14-36); Albumin 3.2 g/dl (3.5-5.0); Alkaline Phosphatase 73 U/L (38-126); Blood Urea Nitrogen 20 mg/dl (7-17); Calcium 8.4 mg/dl (8.4-10.2); Carbon Dioxide 37 mmol/L (22-30); Chloride 93 mmol/L (98-107); Estimated Creatinine Clearance 29 ml/min; Glucose 103 mg/dl (70-99); Magnesium 2.1 mg/dl (1.6-2.3); Potassium 4.1 mmol/L (3.5-5.1); Sodium 135 mmol/L (135-145); Total Bilirubin 0.1 mg/dl (0.2-1.3); Total Protein 5.6 g/dl (6.3-8.2); eGFR 48.33
[2024-11-09] MEDS: NOVOLOG FLEXPEN-MODERATE RESISTANCE SC ×2 (08:45→12:23)
[2024-11-09] MEDS: DIOVAN 80 MG PO (08:46)
[2024-11-09] MEDS: RISPERDAL 1 MG PO (08:46)
[2024-11-09] MEDS: IMDUR (EXTENDED RELEASE) 30 MG PO (08:46)
[2024-11-09] MEDS: FARXIGA 10 MG PO (08:46)
[2024-11-09] MEDS: LOW STRENGTH ASPIRIN 81 MG PO (08:46)
[2024-11-09] MEDS: LASIX 40 MG PO (08:46)
[2024-11-09] MEDS: TOPROL XL 25 MG PO ×2 (08:47→20:34)
[2024-11-09] MEDS: FLUSH (NSS) 1 FLUSH IV ×3 (08:49→16:28)
[2024-11-09] MEDS: NSS (PRESERVATIVE FREE) 10 ML IV (08:49)
[2024-11-09] MEDS: PROTONIX IV 40 MG IV (08:49)
--- NOTE | 2024-11-09 09:25 | W.PN.URO.CBU ---
Today's Communication / Plan
-
keep fink
Assessment / Plan
-
POSSOBLE HEMATURIA FROM BLADDER MASS BUT VCAN BE FROM CHRONIC CYSTIS PT DOES HAVE MOEDERATE RETENTION BILATERAL HYDRO AN WILL BENFIT FROM FINK FOR NOW IN LONG RUN CYSTO NEEDED FOR ECVAL BUT NOIT DURING CHF AND GI BLEED
Diagnosis
-
Date of Service: November 09, 2024
-
Patient Diagnosis:
Post Op Day:
Patient Diagnosis:
Post Op Day:
Patient Diagnosis:
Post Op Day:
Patient Diagnosis:
Post Op Day:
Patient Diagnosis:POSSIBLE BLADDER MASS AND DEFINITE URINARY RETENTION WITH MILD BILATERAL HYDRONEPHROSIS AND MENDOZA IN PT WITH GI BLEED AND CHF
Post Op Day:
Subjective
-
no gu problems
Objective
-
Vital Signs
Temp Pulse Resp BP Pulse Ox
99 F 70 18 144/49 94
11/09/24 08:40 11/09/24 08:47 11/09/24 08:40 11/09/24 08:47 11/09/24 08:40
Intake and Output
11/08/24 11/09/24 11/10/24
06:59 06:59 06:59
Intake Total 940 / 940 1640 / 1640
Output Total 2900 / 2900 3600 / 3600
Balance -1960 / -1960 -1959 / -1959
Intake:
Oral fluids 840 / 840 1440 / 1440
IV piggybacks 100 / 100 200 / 200
Output:
Urine, Fink 2900 / 2900 3600 / 3600
Laboratory Results
11/09/24 07:33
11/09/24 07:33
Review of Systems
-
: Difficulty Voiding
Physical Exam
-
General - well developed, well nourished, no acute distress
Chest - clear bilaterally
Abdomen - soft, non-tender, positive bowel sounds, no CVAT, no incisional pain or distention
Genitalia - normal
Rectal - normal
Skin - warm & dry with no rash
Neuro - AOx3, no motor deficits
Extremities - no clubbing, no cyanosis, no edema
Incision - clean, dry
Dressing - clean, dry, intact
[2024-11-09 10:44] VITALS: BMI 25.2
[2024-11-09 11:38] VITALS: BP 128/48
[2024-11-09 12:20] LABS: Glucose - Point of Care 140 mg/dl (70-99)
[2024-11-09] MEDS: STERILE WATER FOR INJECTION 10 ML IV (12:24)
[2024-11-09] MEDS: ROCEPHIN 1000 MG IV (12:24)
--- NOTE | 2024-11-09 12:45 | W.PN.HOSP.TC ---
Today's Communication/Plan
-
complete 14 day course of abx
maintain fink
f/u cbc, bmp outpt (deonte monitoring sodium)
f/u pcp, cards, urology, GI outpatient
Assessment / Plan
Assessment / Plan
Physical Exam
General: Well Developed, Well Nourished, Appears in Distress and Appears Chronically Ill
HEENT: Nose Appears Normal, Ears Appear Normal and Oxygen; No Good Dentition
Respiratory: Rales, Rhonchi, Crackles and Decreased Breath Sounds
Cardiac: S1/S2 and Regular Rhythm
GI: Soft, Non Tender and Non Distended
Musculoskeletal: No Clubbing, No Cyanosis and No Edema
Skin: Warm and Dry
Neuro: Awake and Alert; mental status appears improved from yesterday
Psych: Anxious
#Chest Pain
-suspect discomfort and nausea as midepigastric rather than cardiac in nature
-trops mild
-resolved
-f/u echo - EF 55-60% with no wall motion abnormalities
-restart asa
#Elevated Troponin
-Most likely nonischemic myocardial injury secondary to complicated UTI, sepsis
� EF 55-60% with no wall motion abnormalities
� Cardiology involved
#Acute HFpEF
#Bilateral pleural effusions
� echo - EF 55%; midl TR;
�switch to PO lasix
-Start Farxiga 10 mg daily.
-Continue Na+/fluid restriction
-Add Valsartan for BP control
-Later add MRA and SGLT2-I (will ask case management to check cost of SGLT2-I but add as outpatient
#Acute Hypoxic Respiratory Failure, resolved
-probably 2/2 to Acute HFpEF although also probably deconditioning/atelectasis
-monitor with diuresis
-early ambulation
-incentive nirali, acapella
#Hyponatremia - acute on chronic
ctm with resuscitation
Renal consulted
Samsca provided - responded well
Fluid restriction
already has minimal intake
monitor bmp in 3-5 days with pcp
#Sepsis
#Complicated UTI
� Has some history of diverticulitis in June 2024, no diverticulitis on imaging this admission
� Switch to ceftriaxone; switch to cefdinir to complete 14 day course
-complete flagyl course as started outpt
#Nausea, abdominal discomfort
� Resolved, suspect 2/2 to hydro/uti
� Normal bowel movements
� Advance diet and assess, advance diet as tolerated okay
�Follow-up cervical level
#Hematuria
#Urinary retention
#Bilateral hydronephrosis
� Has bladder mass, possibly secondary to this
� Continue Fink
� Will need cystoscopy outpatient
-f/u urology outpt
#Microcytic anemia
#Acute blood loss anemia
-possible 2/2 to mild hematuria -monitor
� Hemoglobin stable
� Stool brown, heme-negative
� Status post 1 unit PRBC
� Follow-up outpatient for colonoscopy +/- EGD
� Resume aspirin and monitor hemoglobin - stbale
#Insulin dependent glucose
cont home regimen
a1c - 7
#Hypomagnesemia
� Monitor and replete
#Essential HTN -
Add valsartan to metoprolol and Lasix
#Hypothyroidism
#GERD
#schizophrenia
-Continue home meds
#Trace amount of fluid along both paracolic gutters as above, indeterminate etiology.
-f/u outpt
Full code
restart hsq if no hematuria and hgb stable
More than 30 minutes spent in discharge including
Final examination of the patient
Summarizing hospital stay
Instructions for continuing care to all relevant caregivers
Preparation of discharge records, prescriptions, and referral forms
Total time spent (36 in minutes):
Anticipated Discharge: Today
Subjective/Interval History
-
Date of Service: November 09, 2024
No acute events, Wants to go home
Objective Data
-
Labs:
Laboratory Results
11/09/24
07:33
WBC 9.0
Hgb 9.4 L
Hct 30.1 L
Plt Count 279
Sodium 135
Potassium 4.1
Chloride 93 L
Carbon Dioxide 37 H
BUN 20 H
Creatinine 1.1 H
Glucose 103 H
Calcium 8.4
Total Bilirubin 0.1 L
AST 23
ALT 13
Alkaline Phosphatase 73
Vital Signs:
Vital Signs
Temp Pulse Resp BP Pulse Ox
98.5 F 68 20 128/48 94
11/09/24 11:38 11/09/24 11:38 11/09/24 11:38 11/09/24 11:38 11/09/24 11:38
I&O
11/08/24 11/09/24 11/10/24
06:59 06:59 06:59
Intake Total 940 / 940 1640 / 1640
Output Total 2900 / 2900 3600 / 3600
Balance -1959 / -1959 -1959 / -1959
Review of Systems
-
History Source: Patient
All other systems: Not reviewed unless documented
Data Reviewed
-
Diagnostic Radiology: Report Reviewed by me
CT Scan: Report Reviewed by me
Labs: Labs Reviewed by me
--- NOTE | 2024-11-09 13:26 | W.PN.NEPH.PH ---
Today's Communication / Plan
-
improved hyponatremia I will sign off
Assessment/Plan
-
Impression:
Hyponatremia (acute on chronic)
MENDOZA
Hydronephrosis
Decompensated congestive heart
Diabetes
Anemia with bright red blood per rectum
Hypertension
Hypothyroid
Schizophrenia
Plan:
Hyponatremia:
Fluid restriction continues
Lasix continued at 40mg daily
s/p Samsca 7.5 mg p.o. x 1 on 11/07,, sodium up to 131
I suspect hyponatremia is likely related to congestive heart failure in combination with antipsychotics
Sodium is within normal limits
I will sign off please call if needed
MENDOZA:
-?hydronephrosis
-now with fink and remains non oliguric
-Creatinine down to 1.1
-
-
Date of Service: November 09, 2024
CC / HPI / ROS
-
Chief Complaint:
Hyponatremia
Acute kidney
History of Present Illness:
Creatinine down to 1.1
Hemodynamically stable
sodium within normal limits
Review of Systems:
non oliguric
non tongan speaking
Labs
-
Labs:
WBC 9.0 10^3/uL (4.8-10.8) 11/09/24 07:33
RBC 3.63 10^6/uL (4.20-5.40) L 11/09/24 07:33
Hgb 9.4 g/dL (12.0-16.0) L 11/09/24 07:33
Hct 30.1 % (37.0-47.0) L 11/09/24 07:33
Plt Count 279 10^3/uL (130-400) 11/09/24 07:33
Sodium 135 mmol/L (135-145) 11/09/24 07:33
Potassium 4.1 mmol/L (3.5-5.1) 11/09/24 07:33
Chloride 93 mmol/L (98-107) L 11/09/24 07:33
Carbon Dioxide 37 mmol/L (22-30) H 11/09/24 07:33
BUN 20 mg/dl (7-17) H 11/09/24 07:33
Creatinine 1.1 mg/dL (0.6-1.0) H 11/09/24 07:33
eGFR 48.33 11/09/24 07:33
Glucose 103 mg/dl (70-99) H 11/09/24 07:33
Calcium 8.4 mg/dl (8.4-10.2) 11/09/24 07:33
Pqs-M-Hrryryhvxcd Pept 4620 pg/ml 11/04/24 01:25
Albumin 3.2 g/dl (3.5-5.0) L 11/09/24 07:33
Physical Exam
-
Vital Signs:
Vital Signs
Temp Pulse Resp BP Pulse Ox
98.5 F 68 20 128/48 94
11/09/24 11:38 11/09/24 11:38 11/09/24 11:38 11/09/24 11:38 11/09/24 11:38
Cardiovascular:: Regular rate and rhythm
Respiratory:: Bilateral: CTA
Lung Excursion:: Normal
Abdomen:: Soft
Bowel Sounds:: Normal
Extremity Edema:: None: Bilateral:
Fink Catheter: Yes
--- NOTE | 2024-11-09 15:39 | PTCARENOTE ---
Pt awake and alert, oriented to self; pt speaks [place]; h/o dementia. Understand few words in Beninese. Pt cooperative. VSS. telemetry:NSR. On room air- pulse ox 94%, no SOB noted. Abd obese, soft, ni PO well. Incont small amts soft
brown/armijo BM. Majano P/I mod amts clear rao urine. resting quietly at present; family members at bedside. Will continue to monitor.
[2024-11-09 15:47] VITALS: BP 122/45
[2024-11-09 17:00] LABS: Glucose - Point of Care 163 mg/dl (70-99)
[2024-11-09] MEDS: CRESTOR 20 MG PO (17:40)
[2024-11-09] MEDS: NOVOLOG FLEXPEN-MODERATE RESISTANCE 1 UNITS SC (17:40)
--- NOTE | 2024-11-09 17:50 | PTCARENOTE ---
Pt over 1200 ml fluid restriction; pt 's family giving her liquids brought in by family members. Purpose of 1200 ml fl restriction re-inforced with family /pt; explained that all forms of liquids count towards fluid restriction. Family members
voiced understanding. Will continue to monitor.
[2024-11-09 19:39] VITALS: BP 107/53
[2024-11-09 21:37] LABS: Glucose - Point of Care 175 mg/dl (70-99)
[2024-11-09] MEDS: LANTUS 0.1 UNITS SC (22:59)
[2024-11-09] MEDS: DEPAKOTE ER (24 HR RELEASE) 500 MG PO (22:59)
[2024-11-09] MEDS: RISPERDAL 2 MG PO (23:00)
[2024-11-09 23:34] VITALS: BP 105/71
[2024-11-10] VITALS (8 sets, daily range): BP systolic 118–177; BP diastolic 46–80; PULSE 74–75; O2SAT 93; BMI 26.6
[2024-11-10] MEDS: SYNTHROID 25 MCG PO (05:14)
[2024-11-10 05:43] LABS: Hematocrit 30.1 % (37.0-47.0); Hemoglobin 9.8 g/dL (12.0-16.0); Mean Corp Hgb Conc. 32.6 g/dL (33.0-37.0); Mean Corpuscular Hgb 26.6 pg (27.0-31.0); Mean Corpuscular Volume 81.6 fL (81.0-99.0); Mean Platelet Volume 10.6 fL (7.4-10.4); Platelet Count 297 10^3/uL (130-400); Red Blood Cell Count 3.69 10^6/uL (4.20-5.40); Red Cell Dist. Width 15.6 % (11.5-14.5); White Blood Cell Count 7.4 10^3/uL (4.8-10.8)
[2024-11-10 06:12] LABS: ALT (SGPT) 14 U/L (0-35); AST (SGOT) 23 U/L (14-36); Albumin 3.3 g/dl (3.5-5.0); Alkaline Phosphatase 78 U/L (38-126); Blood Urea Nitrogen 17 mg/dl (7-17); Calcium 8.9 mg/dl (8.4-10.2); Carbon Dioxide 37 mmol/L (22-30); Chloride 92 mmol/L (98-107); Estimated Creatinine Clearance 32 ml/min; Glucose 113 mg/dl (70-99); Sodium 133 mmol/L (135-145); Total Bilirubin < 0.1 mg/dl (0.2-1.3); Total Protein 5.9 g/dl (6.3-8.2); eGFR 54.19
[2024-11-10 07:38] LABS: Glucose - Point of Care 119 mg/dl (70-99)
[2024-11-10] MEDS: NOVOLOG FLEXPEN-MODERATE RESISTANCE SC (08:26)
[2024-11-10] MEDS: FLAGYL 500 MG 100 IV ×2 (08:38→17:35)
[2024-11-10] MEDS: HEPARIN 5000 UNITS SC ×2 (08:38→17:35)
[2024-11-10] MEDS: FARXIGA 10 MG PO (08:38)
[2024-11-10] MEDS: DIOVAN 80 MG PO (08:38)
[2024-11-10] MEDS: LASIX 40 MG PO (08:39)
[2024-11-10] MEDS: NSS (PRESERVATIVE FREE) 10 ML IV (08:39)
[2024-11-10] MEDS: LOW STRENGTH ASPIRIN 81 MG PO (08:39)
[2024-11-10] MEDS: IMDUR (EXTENDED RELEASE) 30 MG PO (08:39)
[2024-11-10] MEDS: PROTONIX IV 40 MG IV (08:39)
[2024-11-10] MEDS: FLUSH (NSS) 2 FLUSH IV (08:40)
[2024-11-10] MEDS: TOPROL XL 25 MG PO ×2 (08:40→20:55)
[2024-11-10] MEDS: RISPERDAL 1 MG PO (08:40)
[2024-11-10] MEDS: ADVAIR HFA 115/21 MCG INHALER 2 PUFF INH ×2 (08:45→19:03)
--- NOTE | 2024-11-10 10:29 | CM ---
Addendum entered by Jill Ng RN 11/10/24 11:31:
LAst PT eval on 11/07/24. Requested PT to reevaluate pt today for dc planning.
Original Note:
Continues IV antibiotics.
PT OT indicate SNF.
[place]ese speaking.Lives with family.
PLAN To Possible SNF after located and auth obtained
[2024-11-10 11:52] LABS: Glucose - Point of Care 227 mg/dl (70-99)
--- NOTE | 2024-11-10 12:04 | W.PN.HOSP.TC ---
Today's Communication/Plan
-
complete 14 day course of abx
maintain fink
f/u cbc, bmp outpt (deonte monitoring sodium)
f/u pcp, cards, urology, GI outpatient
DC ready, CM aware - dispo pending
Assessment / Plan
Assessment / Plan
Physical Exam
General: Well Developed, Well Nourished, Appears in Distress and Appears Chronically Ill
HEENT: Nose Appears Normal, Ears Appear Normal and Oxygen; No Good Dentition
Respiratory: Rales, Rhonchi, Crackles and Decreased Breath Sounds
Cardiac: S1/S2 and Regular Rhythm
GI: Soft, Non Tender and Non Distended
Musculoskeletal: No Clubbing, No Cyanosis and No Edema
Skin: Warm and Dry
Neuro: Awake and Alert; mental status appears improved from yesterday
Psych: Anxious
#Chest Pain
-suspect discomfort and nausea as midepigastric rather than cardiac in nature
-trops mild
-resolved
-f/u echo - EF 55-60% with no wall motion abnormalities
-restart asa
#Elevated Troponin
-Most likely nonischemic myocardial injury secondary to complicated UTI, sepsis
� EF 55-60% with no wall motion abnormalities
� Cardiology involved
#Acute HFpEF
#Bilateral pleural effusions
� echo - EF 55%; mild TR;
�switch to PO lasix
-Start Farxiga 10 mg daily.
-Continue Na+/fluid restriction
-Add Valsartan for BP control
-Later add MRA and SGLT2-I (will ask case management to check cost of SGLT2-I but add as outpatient
#Acute Hypoxic Respiratory Failure, resolved
-probably 2/2 to Acute HFpEF although also probably deconditioning/atelectasis
-monitor with diuresis
-early ambulation
-incentive nirali, acapella
#Hyponatremia - acute on chronic
ctm with resuscitation
Renal consulted
Shantia provided - responded well
Fluid restriction
already has minimal intake
monitor bmp in 3-5 days with pcp
#Sepsis
#Complicated UTI
� Has some history of diverticulitis in June 2024, no diverticulitis on imaging this admission
� Switch to ceftriaxone; switch to cefdinir to complete 14 day course
-complete flagyl course as started outpt
#Nausea, abdominal discomfort
� Resolved, suspect 2/2 to hydro/uti
� Normal bowel movements
� Advance diet and assess, advance diet as tolerated okay
�Follow-up cervical level
#Hematuria
#Urinary retention
#Bilateral hydronephrosis
� Has bladder mass, possibly secondary to this
� Continue Fink
� Will need cystoscopy outpatient
-f/u urology outpt
#Microcytic anemia
#Acute blood loss anemia
-possible 2/2 to mild hematuria -monitor
� Hemoglobin stable
� Stool brown, heme-negative
� Status post 1 unit PRBC
� Follow-up outpatient for colonoscopy +/- EGD
� Resume aspirin and monitor hemoglobin - stbale
#Insulin dependent glucose
cont home regimen
a1c - 7
#Hypomagnesemia
� Monitor and replete
#Essential HTN -
Add valsartan to metoprolol and Lasix
#Hypothyroidism
#GERD
#schizophrenia
-Continue home meds
#Trace amount of fluid along both paracolic gutters as above, indeterminate etiology.
-f/u outpt
Full code
restart hsq if no hematuria and hgb stable
More than 30 minutes spent in discharge including
Final examination of the patient
Summarizing hospital stay
Instructions for continuing care to all relevant caregivers
Preparation of discharge records, prescriptions, and referral forms
Total time spent (36 in minutes):
Anticipated Discharge: Today
Subjective/Interval History
-
Date of Service: November 10, 2024
No acute events
Objective Data
-
Labs:
Laboratory Results
11/10/24
05:10
WBC 7.4
Hgb 9.8 L
Hct 30.1 L
Plt Count 297
Sodium 133 L
Potassium 4.0
Chloride 92 L
Carbon Dioxide 37 H
BUN 17
Creatinine 1.0
Glucose 113 H
Calcium 8.9
Total Bilirubin < 0.1 L
AST 23
ALT 14
Alkaline Phosphatase 78
Vital Signs:
Vital Signs
Temp Pulse Resp BP Pulse Ox
98.3 F 73 18 118/46 97
11/10/24 11:35 11/10/24 11:35 11/10/24 11:35 11/10/24 11:35 11/10/24 11:35
I&O
11/09/24 11/10/24 11/11/24
06:59 06:59 06:59
Intake Total 1640 / 1640 1530 / 1530
Output Total 3600 / 3600 3860 / 3860
Balance -1960 / -1959 -2329 / -2329
Review of Systems
-
History Source: Patient
All other systems: Not reviewed unless documented
Data Reviewed
-
Diagnostic Radiology: Report Reviewed by me
CT Scan: Report Reviewed by me
Labs: Labs Reviewed by me
[2024-11-10] MEDS: NOVOLOG FLEXPEN-MODERATE RESISTANCE 3 UNITS SC ×2 (12:25→17:34)
[2024-11-10] MEDS: ROCEPHIN 1000 MG IV (12:26)
[2024-11-10] MEDS: STERILE WATER FOR INJECTION 10 ML IV (12:26)
[2024-11-10 17:31] LABS: Glucose - Point of Care 205 mg/dl (70-99)
[2024-11-10] MEDS: CRESTOR 20 MG PO (17:36)
[2024-11-10] MEDS: RISPERDAL 2 MG PO (21:06)
[2024-11-10] MEDS: DEPAKOTE ER (24 HR RELEASE) 500 MG PO (21:06)
[2024-11-10 21:26] LABS: Glucose - Point of Care 243 mg/dl (70-99)
[2024-11-10] MEDS: LANTUS 0.1 UNITS SC (21:28)
[2024-11-11] MEDS: HEPARIN 5000 UNITS SC ×4 (00:03→23:10)
[2024-11-11] MEDS: FLAGYL 500 MG 100 IV ×2 (00:03→09:51)
[2024-11-11 03:02] VITALS: BP 143/74
[2024-11-11] MEDS: SYNTHROID 25 MCG PO (05:20)
[2024-11-11 06:00] VITALS: BMI 25.2
[2024-11-11 08:05] LABS: Glucose - Point of Care 119 mg/dl (70-99)
[2024-11-11] MEDS: ADVAIR HFA 115/21 MCG INHALER 2 PUFF INH ×2 (08:05→19:38)
[2024-11-11] MEDS: NOVOLOG FLEXPEN-MODERATE RESISTANCE SC (08:22)
[2024-11-11 08:33] VITALS: BP 139/72
[2024-11-11] MEDS: FARXIGA 10 MG PO (09:51)
[2024-11-11] MEDS: DIOVAN 80 MG PO (09:51)
[2024-11-11] MEDS: NSS (PRESERVATIVE FREE) 10 ML IV (09:52)
[2024-11-11] MEDS: LOW STRENGTH ASPIRIN 81 MG PO (09:52)
[2024-11-11] MEDS: LASIX 40 MG PO (09:52)
[2024-11-11] MEDS: IMDUR (EXTENDED RELEASE) 30 MG PO (09:52)
[2024-11-11] MEDS: PROTONIX IV 40 MG IV (09:52)
[2024-11-11] MEDS: FLUSH (NSS) 2 FLUSH IV (09:53)
[2024-11-11] MEDS: TOPROL XL 25 MG PO ×2 (09:53→21:04)
[2024-11-11] MEDS: RISPERDAL 1 MG PO (09:53)
[2024-11-11 11:30] VITALS: BP 143/62
--- NOTE | 2024-11-11 11:42 | CM ---
PT OT recommended snf.
Spoke with Fadi Henley [phone].Reviewed PT OT evals . Her and family agreed with SNF at [facility].
Referral placed in care port.
Will need [facility] Auth .
MD aware of plan .
PLAn To [facility] after accepted and auth obtained.
[2024-11-11 12:18] LABS: Glucose - Point of Care 165 mg/dl (70-99)
--- NOTE | 2024-11-11 12:44 | W.PN.HOSP.TC ---
Today's Communication/Plan
-
awaiting SNF placement
abx
Assessment / Plan
Assessment / Plan
Physical Exam
General: Well Developed, Well Nourished, Appears in Distress and Appears Chronically Ill
HEENT: Nose Appears Normal, Ears Appear Normal and Oxygen; No Good Dentition
Respiratory: Rales, Rhonchi, Crackles and Decreased Breath Sounds
Cardiac: S1/S2 and Regular Rhythm
GI: Soft, Non Tender and Non Distended
Musculoskeletal: No Clubbing, No Cyanosis and No Edema
Skin: Warm and Dry
Neuro: Awake and Alert; mental status appears improved from yesterday
Psych: Anxious
#Chest Pain
-suspect discomfort and nausea as midepigastric rather than cardiac in nature
-trops mild
-resolved
-f/u echo - EF 55-60% with no wall motion abnormalities
-restart asa
#Elevated Troponin
-Most likely nonischemic myocardial injury secondary to complicated UTI, sepsis
� EF 55-60% with no wall motion abnormalities
� Cardiology involved
#Acute HFpEF
#Bilateral pleural effusions
� echo - EF 55%; mild TR;
�switched to PO lasix
-Start Farxiga 10 mg daily.
-Continue Na+/fluid restriction
-Add Valsartan for BP control
-Later add MRA and SGLT2-I (will ask case management to check cost of SGLT2-I but add as outpatient
#Acute Hypoxic Respiratory Failure, resolved
-probably 2/2 to Acute HFpEF although also probably deconditioning/atelectasis
-monitor with diuresis
-early ambulation
-incentive nirali, acapella
#Hyponatremia - acute on chronic
ctm with resuscitation
Renal consulted
Samsca provided - responded well
Fluid restriction
already has minimal intake
monitor bmp in 3-5 days with pcp
#Sepsis
#Complicated UTI
� Has some history of diverticulitis in June 2024, no diverticulitis on imaging this admission
� Switch to ceftriaxone; switch to cefdinir to complete 14 day course
-complete flagyl course as started outpt
#Nausea, abdominal discomfort
� Resolved, suspect 2/2 to hydro/uti
� Normal bowel movements
� Advance diet and assess, advance diet as tolerated okay
�Follow-up cervical level
#Hematuria
#Urinary retention
#Bilateral hydronephrosis
� Has bladder mass, possibly secondary to this
� Continue Majano
� Will need cystoscopy outpatient
-f/u urology outpt
#Microcytic anemia
#Acute blood loss anemia
-possible 2/2 to mild hematuria -monitor
� Hemoglobin stable
� Stool brown, heme-negative
� Status post 1 unit PRBC
� Follow-up outpatient for colonoscopy +/- EGD
� Resume aspirin and monitor hemoglobin - stbale
#Insulin dependent glucose
cont home regimen
a1c - 7
#Hypomagnesemia
� Monitor and replete
#Essential HTN -
Add valsartan to metoprolol and Lasix
#Hypothyroidism
#GERD
#schizophrenia
-Continue home meds
#Trace amount of fluid along both paracolic gutters as above, indeterminate etiology.
-f/u outpt
Full code
restart hsq if no hematuria and hgb stable
Anticipated Discharge: Within 24 hours
Subjective/Interval History
-
Date of Service: November 11, 2024
no acute events
Objective Data
-
Vital Signs:
Vital Signs
Temp Pulse Resp BP Pulse Ox
98.7 F 67 20 139/72 92
11/11/24 08:33 11/11/24 09:51 11/11/24 08:33 11/11/24 09:51 11/11/24 08:33
I&O
11/10/24 11/11/24 11/12/24
06:59 06:59 06:59
Intake Total 1530 / 1530 1320 / 1320
Output Total 3860 / 3860 2600 / 2600
Balance -2330 / -2330 -1280 / -1280
Review of Systems
-
History Source: Patient
All other systems: Not reviewed unless documented
Data Reviewed
-
Diagnostic Radiology: Report Reviewed by me
CT Scan: Report Reviewed by me
Labs: Labs Reviewed by me
[2024-11-11] MEDS: NOVOLOG FLEXPEN-MODERATE RESISTANCE 1 UNITS SC ×2 (13:14→18:22)
[2024-11-11] MEDS: STERILE WATER FOR INJECTION 10 ML IV (13:15)
[2024-11-11] MEDS: ROCEPHIN 1000 MG IV (13:15)
[2024-11-11] MEDS: FLAGYL 500 MG PO ×2 (15:22→21:05)
[2024-11-11] MEDS: TYLENOL 650 MG PO (15:22)
[2024-11-11 15:55] VITALS: BP 147/66
[2024-11-11 18:15] LABS: Glucose - Point of Care 196 mg/dl (70-99)
[2024-11-11] MEDS: CRESTOR 20 MG PO (18:15)
[2024-11-11 19:35] VITALS: BP 134/53
[2024-11-11] MEDS: DEPAKOTE ER (24 HR RELEASE) 500 MG PO (21:04)
[2024-11-11] MEDS: RISPERDAL 2 MG PO (21:05)
[2024-11-11 21:35] LABS: Glucose - Point of Care 175 mg/dl (70-99)
[2024-11-11] MEDS: LANTUS 0.1 UNITS SC (22:12)
[2024-11-11 23:21] VITALS: BP 165/55
[2024-11-12] VITALS (7 sets, daily range): BP systolic 114–159; BP diastolic 53–96; PULSE 81; BMI 25.0
[2024-11-12] MEDS: SYNTHROID 25 MCG PO (05:31)
[2024-11-12 07:35] LABS: Glucose - Point of Care 132 mg/dl (70-99)
[2024-11-12 07:38] LABS: Hematocrit 30.2 % (37.0-47.0); Hemoglobin 10.1 g/dL (12.0-16.0); Mean Corp Hgb Conc. 33.4 g/dL (33.0-37.0); Mean Corpuscular Hgb 26.5 pg (27.0-31.0); Mean Corpuscular Volume 79.3 fL (81.0-99.0); Mean Platelet Volume 10.7 fL (7.4-10.4); Platelet Count 269 10^3/uL (130-400); Red Blood Cell Count 3.81 10^6/uL (4.20-5.40); Red Cell Dist. Width 15.5 % (11.5-14.5); White Blood Cell Count 7.8 10^3/uL (4.8-10.8)
[2024-11-12 08:15] LABS: Blood Urea Nitrogen 20 mg/dl (7-17); Carbon Dioxide 28 mmol/L (22-30); Chloride 91 mmol/L (98-107); Estimated Creatinine Clearance 32 ml/min; Glucose 122 mg/dl (70-99); Potassium 4.5 mmol/L (3.5-5.1); Sodium 128 mmol/L (135-145); eGFR 54.19
[2024-11-12] MEDS: ADVAIR HFA 115/21 MCG INHALER 2 PUFF INH ×2 (08:22→19:18)
[2024-11-12] MEDS: NOVOLOG FLEXPEN-MODERATE RESISTANCE SC (09:01)
[2024-11-12] MEDS: FLAGYL 500 MG PO ×3 (09:02→23:13)
[2024-11-12] MEDS: RISPERDAL 1 MG PO (09:02)
[2024-11-12] MEDS: DIOVAN 80 MG PO (09:02)
[2024-11-12] MEDS: FARXIGA 10 MG PO (09:02)
[2024-11-12] MEDS: PROTONIX 40 MG PO (09:02)
[2024-11-12] MEDS: IMDUR (EXTENDED RELEASE) 30 MG PO (09:02)
[2024-11-12] MEDS: LOW STRENGTH ASPIRIN 81 MG PO (09:03)
[2024-11-12] MEDS: LASIX 40 MG PO (09:03)
[2024-11-12] MEDS: TOPROL XL 25 MG PO ×2 (09:03→20:35)
[2024-11-12] MEDS: HEPARIN 5000 UNITS SC ×3 (09:04→23:14)
--- NOTE | 2024-11-12 09:51 | CM ---
CM following for discharge to SNF. Call placed to [facility] to start authorization; I spoke with Tristian who advised that the authorization department is closed today in observance of the MLK.
CM to follow up with [facility] tomorrow to pursue authorization for SNF transfer to [facility].
--- NOTE | 2024-11-12 11:01 | W.PN.HOSP.TC ---
Today's Communication/Plan
-
Trend BMP
40 ounce fluid restriction
Oral diuretics
Discharge to [facility] tomorrow
Assessment / Plan
Assessment / Plan
#Acute HFpEF
#Bilateral pleural effusions
-Echocardiogram here showed LVEF 55% with mild TR, normal RV function
-No signs of hypertensive cardiomyopathy on echocardiogram here
-Started on GDMT with SGLT2i, and Lasix 40 for diuresis
-Subsequently started on ARB for hypertension
-Appears fairly euvolemic at this time
-Consider MRA as OP if hypertension worsens
-Continue with sodium and water restricted diet
#Elevated Troponin
-Most likely nonischemic myocardial injury secondary to complicated UTI, sepsis
-EF 55-60% with no wall motion abnormalities
-Cardiology involved, started daily aspirin
#Euvolemic hyponatremia - acute on chronic
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
-Likely a degree of hypervolemic hyponatremia with heart failure as well
-Sodium has been fairly stable on 40 ounce free water restriction
-Nephrology has since signed off; remains on Lasix and SGLT2i as above
-Outpatient BMP in 5 days
#Acute Hypoxic Respiratory Failure, resolved
-probably 2/2 to Acute HFpEF although also probably deconditioning/atelectasis
-resolved with IV diuresis
#Sepsis
#Complicated UTI
-Status post course of ceftriaxone and Flagyl; has been transitioned to cefdinir
-Urine culture with E. coli resistant to cefazolin, Zosyn, ciprofloxacin
-Has been hemodynamically stable, did not require vasopressors
-Will continue with cefdinir to complete 14 days of antibiotics, last day 11/20
#Nausea, abdominal discomfort
-Secondary to hydronephrosis and UTI
-resolved
#Hematuria
#Urinary retention
#Bilateral hydronephrosis
-Has bladder mass, likely causing hematuria and hydronephrosis
-Status post Majano catheter, will need outpatient cystoscopy
-f/u urology outpt
#Microcytic anemia
#Acute blood loss anemia
-possible 2/2 to mild hematuria versus occult GI bleeding
-Status post 1 unit PRBC here, hemoglobin has since stabilized
-Remains on aspirin, hemoglobin up trended to 10.1 this morning
-Was seen by GI, recommends OP colonoscopy +/- EGD
-Will need CBC in 5 days from DC
#Insulin dependent glucose
-Hemoglobin A1c 7%; no known microvascular complications
-Remains on home regimen of Lantus and metformin; with ISS and Accu
-Started on SGLT2i for HFpEF GDMT
#Hypomagnesemia
-Monitor and replete
#Essential HTN
-No known history of hypertensive systemic disease
-Home meds include Lasix; started on metoprolol and valsartan here
-Blood pressure currently well-controlled, will continue to monitor
#Hypothyroidism
-Unknown etiology, home medication includes levothyroxine
-No signs or symptoms of thyroid dysfunction at this time
#GERD
-Home medication includes daily PPI
-No red flag symptoms as of now
#schizophrenia
-Continue home meds
CODE STATUS: Full code
Diet: Regular
DVT prophylaxis: SCDs
Anticipated Discharge: Within 24 hours
Subjective/Interval History
-
Date of Service: November 12, 2024
Seen and examined at the bedside. No acute events reported overnight. AFVSS this morning
Hemoglobin stable, sodium 128.
Patient states she feels well today, via insulator cutter and former line, and has no complaints
Objective Data
-
Labs:
Laboratory Results
11/12/24
07:03
WBC 7.8
Hgb 10.1 L
Hct 30.2 L
Plt Count 269
Sodium 128 L
Potassium 4.5
Chloride 91 L
Carbon Dioxide 28
BUN 20 H
Creatinine 1.0
Glucose 122 H
Calcium 9.0
Vital Signs:
Vital Signs
Temp Pulse Resp BP Pulse Ox
97.8 F 75 18 159/65 98
11/12/24 07:20 11/12/24 09:03 11/12/24 07:20 11/12/24 09:03 11/12/24 10:28
I&O
11/11/24 11/12/24 11/13/24
06:59 06:59 06:59
Intake Total 1320 / 1320 1060 / 1060
Output Total 2600 / 2600 3475 / 3475
Balance -1280 / -1280 -2415 / -2415
Review of Systems
-
History Source: Patient
All other systems: Reviewed and negative
Physical Exam
-
General: Well Developed, Well Nourished, No Apparent Distress and Comfortable
HEENT: Normocephalic, Atraumatic and Moist Mucous Membranes
Respiratory: Clear to Auscultation and Non Labored Respirations
Cardiac: Regular Rhythm and S1/S2; Negative Murmur, Rub, JVD or Gallop
GI: Soft, Nontender, Nondistended and Normal Bowel Sounds
Musculoskeletal: No Clubbing, No Cyanosis and No Edema
Skin: Warm, Dry and Normal Turgor; Negative Rash
Neuro: AO x 3, Tremors (Pill-rolling like, hand tremor) and Nonfocal/Grossly Intact
Psych: Calm
Data Reviewed
-
Labs: Labs Reviewed by me and Discussed with Patient
[2024-11-12] MEDS: FLUSH (NSS) 1 FLUSH IV (11:43)
[2024-11-12] MEDS: STERILE WATER FOR INJECTION 10 ML IV (11:43)
[2024-11-12] MEDS: ROCEPHIN 1000 MG IV (11:43)
[2024-11-12 11:45] LABS: Glucose - Point of Care 239 mg/dl (70-99)
[2024-11-12] MEDS: NOVOLOG FLEXPEN-MODERATE RESISTANCE 3 UNITS SC (12:14)
--- NOTE | 2024-11-12 15:59 | PTCARENOTE ---
Pt awake and alert, oriented to self/'hospital; pt speaks Bahraini; has h/o dementia. TOURE well, turns self in bed. Cooperative. VSS. On room air- pulse ox 96%, no SOB noted. Abd obese, soft, in PO well. Incont soft brown BM's. Majano P/I large
amts clear yellow urine. Resting in bed at present, no c/o. Multiple family members at bedside. Will continue to monitor.
[2024-11-12 16:43] LABS: Glucose - Point of Care 174 mg/dl (70-99)
[2024-11-12] MEDS: CRESTOR 20 MG PO (17:52)
[2024-11-12] MEDS: NOVOLOG FLEXPEN-MODERATE RESISTANCE 1 UNITS SC (17:52)
[2024-11-12] MEDS: DEPAKOTE ER (24 HR RELEASE) 500 MG PO (20:35)
[2024-11-12] MEDS: RISPERDAL 2 MG PO (20:35)
[2024-11-12 21:23] LABS: Glucose - Point of Care 193 mg/dl (70-99)
[2024-11-12] MEDS: LANTUS 0.1 UNITS SC (23:13)
[2024-11-13 06:00] VITALS: BMI 24.9
[2024-11-13] MEDS: SYNTHROID 25 MCG PO (06:12)
[2024-11-13] MEDS: ADVAIR HFA 115/21 MCG INHALER 2 PUFF INH ×2 (07:05→19:58)
[2024-11-13 07:10] LABS: % Basophils 0.7 % (0-2); % Eosinophils 3.5 % (0-6); % Immature Granulocytes 0.7 % (0-0.5); % Lymphocytes 28.8 % (20.5-51.1); % Monocytes 12.1 % (1.7-9.3); % Neutrophils 54.2 % (42.2-75.2); Absolute Basophils 0.1 10^3/uL (0-0.2); Absolute Eosinophils 0.3 10^3/uL (0-0.7); Absolute Immature Granulocytes 0.1 10^3/uL (0-0.05); Absolute Lymphocytes 2.1 10^3/uL (1.2-3.4); Absolute Monocytes 0.9 10^3/uL (0.1-0.6); Hematocrit 31.6 % (37.0-47.0); Hemoglobin 10.4 g/dL (12.0-16.0); Mean Corp Hgb Conc. 32.9 g/dL (33.0-37.0); Mean Corpuscular Hgb 25.9 pg (27.0-31.0); Mean Corpuscular Volume 78.8 fL (81.0-99.0); Mean Platelet Volume 11.1 fL (7.4-10.4); Nucleated Red Blood Cells % 0 %; Platelet Count 318 10^3/uL (130-400); Red Blood Cell Count 4.01 10^6/uL (4.20-5.40); Red Cell Dist. Width 15.6 % (11.5-14.5); White Blood Cell Count 7.4 10^3/uL (4.8-10.8)
[2024-11-13 07:25] LABS: Glucose - Point of Care 138 mg/dl (70-99)
[2024-11-13] MEDS: NOVOLOG FLEXPEN-MODERATE RESISTANCE SC (07:30)
[2024-11-13 07:35] VITALS: BP 153/56
[2024-11-13 07:36] LABS: Blood Urea Nitrogen 24 mg/dl (7-17); Carbon Dioxide 31 mmol/L (22-30); Chloride 87 mmol/L (98-107); Estimated Creatinine Clearance 29 ml/min; Glucose 119 mg/dl (70-99); Potassium 4.1 mmol/L (3.5-5.1); Sodium 129 mmol/L (135-145); eGFR 48.33
[2024-11-13] MEDS: TOPROL XL 25 MG PO ×2 (08:40→21:11)
[2024-11-13] MEDS: DIOVAN 80 MG PO (08:40)
[2024-11-13] MEDS: RISPERDAL 1 MG PO (08:40)
[2024-11-13] MEDS: IMDUR (EXTENDED RELEASE) 30 MG PO (08:40)
[2024-11-13] MEDS: PROTONIX 40 MG PO (08:40)
[2024-11-13] MEDS: LOW STRENGTH ASPIRIN 81 MG PO (08:41)
[2024-11-13] MEDS: FLAGYL 500 MG PO ×3 (08:41→21:13)
[2024-11-13] MEDS: HEPARIN 5000 UNITS SC ×3 (08:41→23:28)
[2024-11-13] MEDS: FEOSOL 325 MG PO (08:41)
[2024-11-13] MEDS: LASIX 40 MG PO (08:41)
[2024-11-13] MEDS: FARXIGA 10 MG PO (10:07)
--- NOTE | 2024-11-13 11:48 | W.PN.HOSP.TC ---
Today's Communication/Plan
-
Discharge
Continue 40 ounce fluid restriction
Continue Lasix and SGLT2i
BMP in 5 to 7 days as OP
Assessment / Plan
Assessment / Plan
#Acute HFpEF
#Bilateral pleural effusions
-Echocardiogram here showed LVEF 55% with mild TR, normal RV function
-No signs of hypertensive cardiomyopathy on echocardiogram here
-Started on GDMT with SGLT2i, and Lasix 40 for diuresis
-Subsequently started on ARB for hypertension
-Appears fairly euvolemic at this time
-Consider MRA as OP if hypertension worsens
-Continue with sodium and water restricted diet
#Elevated Troponin
-Most likely nonischemic myocardial injury secondary to complicated UTI, sepsis
-EF 55-60% with no wall motion abnormalities
-Cardiology involved, started daily aspirin
#Euvolemic hyponatremia - acute on chronic
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
-Likely a degree of hypervolemic hyponatremia with heart failure as well
-Sodium has been fairly stable on 40 ounce free water restriction
-Nephrology has since signed off; remains on Lasix and SGLT2i as above
-Outpatient BMP in 5 days
#Acute Hypoxic Respiratory Failure, resolved
-probably 2/2 to Acute HFpEF although also probably deconditioning/atelectasis
-resolved with IV diuresis
#Sepsis
#Complicated UTI
-Status post course of ceftriaxone and Flagyl; has been transitioned to cefdinir
-Urine culture with E. coli resistant to cefazolin, Zosyn, ciprofloxacin
-Has been hemodynamically stable, did not require vasopressors
-Will continue with cefdinir to complete 14 days of antibiotics, last day 11/20
#Nausea, abdominal discomfort
-Secondary to hydronephrosis and UTI
-resolved
#Hematuria
#Urinary retention
#Bilateral hydronephrosis
-Has bladder mass, likely causing hematuria and hydronephrosis
-Status post Majano catheter, will need outpatient cystoscopy
-f/u urology outpt
#Microcytic anemia
#Acute blood loss anemia
-possible 2/2 to mild hematuria versus occult GI bleeding
-Status post 1 unit PRBC here, hemoglobin has since stabilized
-Remains on aspirin, hemoglobin up trended to 10.1 this morning
-Was seen by GI, recommends OP colonoscopy +/- EGD
-Will need CBC in 5 days from DC
#Insulin dependent glucose
-Hemoglobin A1c 7%; no known microvascular complications
-Remains on home regimen of Lantus and metformin; with ISS and Accu
-Started on SGLT2i for HFpEF GDMT
#Hypomagnesemia
-Monitor and replete
#Essential HTN
-No known history of hypertensive systemic disease
-Home meds include Lasix; started on metoprolol and valsartan here
-Blood pressure currently well-controlled, will continue to monitor
#Hypothyroidism
-Unknown etiology, home medication includes levothyroxine
-No signs or symptoms of thyroid dysfunction at this time
#GERD
-Home medication includes daily PPI
-No red flag symptoms as of now
#schizophrenia
-Continue home meds
CODE STATUS: Full code
Diet: Regular
DVT prophylaxis: SCDs
Anticipated Discharge: Today
Subjective/Interval History
-
Date of Service: November 13, 2024
Seen and examined at the bedside. Utilized motor vehicle parts interpreter [id number].
No acute events overnight. AFVSS this morning.
Patient states she would like to leave the hospital and go home. Denies any new complaints and states she feels
Objective Data
-
Labs:
Laboratory Results
11/13/24
06:03
WBC 7.4
Hgb 10.4 L
Hct 31.6 L
Plt Count 318
Sodium 129 L
Potassium 4.1
Chloride 87 L
Carbon Dioxide 31 H
BUN 24 H
Creatinine 1.1 H
Glucose 119 H
Calcium 9.0
Vital Signs:
Vital Signs
Temp Pulse Resp BP Pulse Ox
98.0 F 76 18 153/56 98
11/13/24 07:35 11/13/24 08:40 11/13/24 07:35 11/13/24 08:40 11/13/24 07:35
I&O
11/12/24 11/13/24 11/14/24
06:59 06:59 06:59
Intake Total 1060 / 1060 1680 / 1680
Output Total 3475 / 3475 3350 / 3350
Balance -2415 / -2415 -1670 / -1670
Review of Systems
-
History Source: Patient
All other systems: Reviewed and negative
Physical Exam
-
General: Well Developed, Well Nourished, No Apparent Distress and Comfortable
HEENT: Normocephalic, Atraumatic and Moist Mucous Membranes
Respiratory: Clear to Auscultation and Non Labored Respirations
Cardiac: Regular Rhythm and S1/S2; Negative Murmur, Rub, JVD or Gallop
GI: Soft, Nontender, Nondistended and Normal Bowel Sounds
Musculoskeletal: No Clubbing, No Cyanosis and No Edema
Skin: Warm, Dry and Normal Turgor; Negative Rash
Neuro: Nonfocal/Grossly Intact; Negative Tremors
Psych: Calm
Data Reviewed
-
Labs: Labs Reviewed by me and Discussed with Patient
[2024-11-13 12:01] LABS: Glucose - Point of Care 262 mg/dl (70-99)
[2024-11-13] MEDS: NOVOLOG FLEXPEN-MODERATE RESISTANCE 5 UNITS SC (12:21)
[2024-11-13] MEDS: ROCEPHIN 1000 MG IV (12:26)
[2024-11-13] MEDS: STERILE WATER FOR INJECTION 10 ML IV (12:27)
--- NOTE | 2024-11-13 14:09 | CM ---
JUAN contacted [facility] [employer] this AM to initiate SNF authorization for Mone Seaman. Clinical information sent via fax; awaiting determination. Family has requested assistance with documentation to facilitate time off from work as well as a note
for child's absence from school. Forms being emailed to me by bianka Martins's son. CM to follow up with MD once received.
[2024-11-13 15:20] VITALS: BP 116/55
[2024-11-13 16:53] LABS: Glucose - Point of Care 174 mg/dl (70-99)
[2024-11-13] MEDS: NOVOLOG FLEXPEN-MODERATE RESISTANCE 1 UNITS SC (16:53)
[2024-11-13] MEDS: CRESTOR 20 MG PO (18:58)
--- NOTE | 2024-11-13 20:25 | W.PN.UPDATE ---
Update Note
Progress Note Update
Patient seen on request from RN for rash on right buttock. Vesicular linear rash noted on right buttock, appears to be shingles. Started on acyclovir and pain medications.
[2024-11-13] MEDS: RISPERDAL 2 MG PO (21:12)
[2024-11-13] MEDS: ZOVIRAX 800 MG PO (21:12)
[2024-11-13] MEDS: DEPAKOTE ER (24 HR RELEASE) 500 MG PO (21:13)
[2024-11-13] MEDS: LANTUS 0.1 UNITS SC (21:17)
[2024-11-13 21:21] LABS: Glucose - Point of Care 145 mg/dl (70-99)
--- NOTE | 2024-11-13 21:45 | PTCARENOTE ---
Report given to 4W RN and patient transferred to room 433 with all belongings.
[2024-11-13 23:23] VITALS: BP 90/55
--- NOTE | 2024-11-14 02:27 | DOWNTIME ---
There was a [employer] Client Senior Client Advisor Downtime on 11/14/2024 from 0100 to 11/14/2023 at 0205 . Downtime documentation of patient's care, including medication administrations, has been reconciled in the electronic record per guidelines. Refer to the
patient's paper chart under the miscellaneous tab to see printed paper medication records and downtime forms.
[2024-11-14 03:47] VITALS: BP 119/45
[2024-11-14 05:09] VITALS: BMI 24.9
[2024-11-14] MEDS: SYNTHROID 25 MCG PO (06:07)
[2024-11-14 07:20] VITALS: BP 140/67
[2024-11-14 07:56] LABS: Glucose - Point of Care 137 mg/dl (70-99)
[2024-11-14] MEDS: FLAGYL 500 MG PO ×2 (08:04→14:24)
[2024-11-14] MEDS: HEPARIN 5000 UNITS SC ×2 (08:04→14:24)
[2024-11-14] MEDS: FARXIGA 10 MG PO (08:04)
[2024-11-14] MEDS: RISPERDAL 1 MG PO (08:05)
[2024-11-14] MEDS: IMDUR (EXTENDED RELEASE) 30 MG PO (08:05)
[2024-11-14] MEDS: TOPROL XL 25 MG PO (08:05)
[2024-11-14] MEDS: LASIX 40 MG PO (08:05)
[2024-11-14] MEDS: LOW STRENGTH ASPIRIN 81 MG PO (08:05)
[2024-11-14] MEDS: NOVOLOG FLEXPEN-MODERATE RESISTANCE SC (08:05)
[2024-11-14] MEDS: DIOVAN 80 MG PO (08:05)
[2024-11-14] MEDS: FEOSOL 325 MG PO (08:05)
[2024-11-14] MEDS: PROTONIX 40 MG PO (08:05)
[2024-11-14] MEDS: ZOVIRAX 800 MG PO ×3 (08:06→14:22)
[2024-11-14] MEDS: ADVAIR HFA 115/21 MCG INHALER INH (08:09)
--- NOTE | 2024-11-14 10:00 | W.PN.HOSP.TC ---
Addendum entered and electronically signed by Frandy Abraham DO 11/14/24 12:43:
Addendum: this patient will likely require less than 30 days for residential services as her symptoms and behaviors are stable
Original Note:
Today's Communication/Plan
-
Discharge to SNF
Acyclovir x 10 days for shingles
Continue Lasix and SGLT for HFpEF
Continue 40 ounce dietary fluid restriction
CBC and BMP in 1 week
Assessment / Plan
Assessment / Plan
#Acute HFpEF
#Bilateral pleural effusions
-Echocardiogram here showed LVEF 55% with mild TR, normal RV function
-No signs of hypertensive cardiomyopathy on echocardiogram here
-Started on GDMT with SGLT2i, and Lasix 40 for diuresis
-Subsequently started on ARB for hypertension
-Appears fairly euvolemic at this time
-Consider MRA as OP if hypertension worsens
-Continue with sodium and water restricted diet
#Shingles
-Vesicular and erythematous rash of the buttocks concerning for shingles
-Was started on acyclovir by overnight team on 11/13
-Plan for acyclovir 5 times daily to complete 10 days (last day 11/24)
#Elevated Troponin
-Most likely nonischemic myocardial injury secondary to complicated UTI, sepsis
-EF 55-60% with no wall motion abnormalities
-Cardiology involved, started daily aspirin
#Euvolemic hyponatremia - acute on chronic
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
-Likely a degree of hypervolemic hyponatremia with heart failure as well
-Sodium has been fairly stable on 40 ounce free water restriction
-Nephrology has since signed off; remains on Lasix and SGLT2i as above
-Outpatient BMP in 5 days
#Acute Hypoxic Respiratory Failure, resolved
-probably 2/2 to Acute HFpEF although also probably deconditioning/atelectasis
-resolved with IV diuresis
#Sepsis
#Complicated UTI
-Status post course of ceftriaxone and Flagyl; has been transitioned to cefdinir
-Urine culture with E. coli resistant to cefazolin, Zosyn, ciprofloxacin
-Has been hemodynamically stable, did not require vasopressors
-Will continue with cefdinir to complete 14 days of antibiotics, last day 11/20
#Nausea, abdominal discomfort
-Secondary to hydronephrosis and UTI
-resolved
#Hematuria
#Urinary retention
#Bilateral hydronephrosis
-Has bladder mass, likely causing hematuria and hydronephrosis
-Status post Majano catheter, will need outpatient cystoscopy
-f/u urology outpt
#Microcytic anemia
#Acute blood loss anemia
-possible 2/2 to mild hematuria versus occult GI bleeding
-Status post 1 unit PRBC here, hemoglobin has since stabilized
-Remains on aspirin, hemoglobin up trended to 10.1 this morning
-Was seen by GI, recommends OP colonoscopy +/- EGD
-Will need CBC in 5 days from DC
#Insulin dependent glucose
-Hemoglobin A1c 7%; no known microvascular complications
-Remains on home regimen of Lantus and metformin; with ISS and Accu
-Started on SGLT2i for HFpEF GDMT
#Hypomagnesemia
-Monitor and replete
#Essential HTN
-No known history of hypertensive systemic disease
-Home meds include Lasix; started on metoprolol and valsartan here
-Blood pressure currently well-controlled, will continue to monitor
#Hypothyroidism
-Unknown etiology, home medication includes levothyroxine
-No signs or symptoms of thyroid dysfunction at this time
#GERD
-Home medication includes daily PPI
-No red flag symptoms as of now
#schizophrenia
-Continue home meds
CODE STATUS: Full code
Diet: Regular
DVT prophylaxis: SCDs
Anticipated Discharge: Today
Subjective/Interval History
-
Date of Service: November 14, 2024
Seen and examined at the bedside. Overnight practitioner called for buttocks rash concerning for shingles, started on antiviral therapy. AFVSS this morning
Patient otherwise feels well and again states she wants to leave the hospital. Denies shortness of breath, fevers or chills, chest pain. Nursing at bedside helped with translation
Denies any new complaints. Seemed as if she does not like applesauce
Objective Data
-
Vital Signs:
Vital Signs
Temp Pulse Resp BP Pulse Ox
98.3 F 77 20 140/67 98
11/14/24 07:20 11/14/24 07:20 11/14/24 07:20 11/14/24 07:20 11/14/24 07:20
I&O
11/13/24 11/14/24 11/15/24
06:59 06:59 06:59
Intake Total 1680 / 1680 420 / 420
Output Total 3350 / 3350 1700 / 1700
Balance -1670 / -1670 -1280 / -1280
Review of Systems
-
History Source: Patient
All other systems: Reviewed and negative
Physical Exam
-
General: Well Developed, Well Nourished, No Apparent Distress and Comfortable
HEENT: Normocephalic, Atraumatic, Moist Mucous Membranes, Anicteric and Other (Two gold teeth)
Respiratory: Clear to Auscultation and Non Labored Respirations; Negative Wheezes, Rales, Rhonchi or Crackles
Cardiac: Regular Rhythm and S1/S2; Negative Murmur, Rub or Gallop
GI: Soft, Nontender, Nondistended and Normal Bowel Sounds
Musculoskeletal: No Clubbing, No Cyanosis and No Edema
Skin: Warm, Dry and Rash (Vesicular and erythematous rash of the buttocks within dermatomal distribution)
Neuro: AO x 3 and Nonfocal/Grossly Intact
Psych: Calm
--- NOTE | 2024-11-14 10:30 | WOUNDNOTE ---
TIFFANY RN NOTE: Patient admitted with rectal bleeding, pulmonary edema, anemia and hypoxia. Reviewed medical record and used portable translation monitor when talking to patient. Patient sitting in recliner chair, brief in use. With assist from nurse
Shae had patient stand using walker. R buttock with small patch of scattered tiny pustules, suspected Shingles. Scant drainage, silicone foam changed. Acyclovir is on order. Recommend not using brief when in bed, only Ultrasorb pad and once
pustules dry can leave open to air.
[2024-11-14] MEDS: FLUAD (65 yr+) 2024-2025 FORMULA 0.5 ML IM (12:09)
[2024-11-14] MEDS: STERILE WATER FOR INJECTION 10 ML IV ×2 (12:10)
[2024-11-14] MEDS: ROCEPHIN 1000 MG IV (12:11)
[2024-11-14 12:39] LABS: Glucose - Point of Care 322 mg/dl (70-99)
--- NOTE | 2024-11-14 12:40 | CM ---
TC to [facility] [phone] to verify authorization for skilled rehab.
Spoke with Reba Kruger
Approved skilled rehab at [facility]
Auth# [id number]
start date 11/14/24- 11/21/24
updates to [phone]
[2024-11-14] MEDS: NOVOLOG FLEXPEN-MODERATE RESISTANCE 7 UNITS SC (13:21)
--- NOTE | 2024-11-14 13:27 | W.DCSUMMARY ---
Discharge Summary
Discharge Data
Date of Admission: 11/04/24
Date of Discharge: 11/14/24
-
Pending Results: No
Hospital Course
89-year-old female with schizophrenia, type 2 diabetes, asthma, hypothyroidism, GERD, chronic hyponatremia who initially presented to the hospital with rectal bleeding. Aspirin was held on arrival due to rectal bleeding. Initial hemoglobin <7 so
she was transfused with 1 unit of packed red blood cells. Iron studies with significant iron deficiency, ferritin level 9. Was started on oral iron supplement. Evaluated by GI, due to evidence of bleeding cessation she did not have endoscopy in
the hospital. Recommended to follow-up with GI after discharge for consideration of colonoscopy +/- EGD.
Also developed acute HFpEF while in the hospitalization and required IV diuresis. Was started on SGLT2 inhibitor for GDMT of HFpEF. Volume status normalized and renal function stable on diuretic regimen prior to discharge.
Hospitalization was complicated by multifactorial hyponatremia likely in the context of heart failure, free water intake. She was started on Lasix as above as well as a 40 ounce daily free water restriction. Received 1 dose of tolvaptan. Sodium
improved from 123 and stabilized near 130. Recommended to have repeat BMP 1 week after discharge from the hospital. To continue on free water restriction
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 Was evaluated by urologist who recommended maintaining Majano catheter, discharged with outpatient urology follow-up and trial of void. Will
need a cystoscopy as well for assessment of bladder mass. Given 14 days of antibiotic for complicated UTI with E. coli (resistance to ciprofloxacin, Zosyn)
On final day of hospitalization she developed shingles rash on her buttocks. Recommended to complete 10-day course of acyclovir as outlined below.
Discharge Plan
-
Patient Disposition: Home (Routine Discharge)
Discharge Diagnosis/Procedures: #Acute HFpEF
#Bilateral pleural effusions
#Acute Hypoxic Respiratory Failure, resolved
#Hyponatremia - acute on chronic
#Sepsis
#Complicated UTI
#Hematuria
#Urinary retention with bladder mass
#Bilateral hydronephrosis
Condition: Fair
Diet: Low Fat, Low Cholesterol, Diabetic, Carb Controlled, Restrict fluids to 48 oz and Other diet
Activity: As tolerated
Driving Restrictions: No driving
Bathing Restrictions: None
Blood Work: CMP and CBC 5-7 days after discharge from hospital
Others Tests: Cystoscopy with Urologist
Possible colonoscopy +/- EGD with gastroenterology
Other Services: PT and OT
Specialty Instructions: Weigh Daily- Call MD for wt gain/loss 3 lbs overnight/5 lbs in 1 week
Activity Restrictions/Additional Instructions:
Wound Care Instructions
R buttock: clean with soap and water, dry dressing, change q other day and prn drainage. *Once pustules dry, can leave open to air
Follow-up with family doctor in 1 to 2 weeks
Follow-up with gastroenterology within 1 to 2 weeks of discharge
Follow-up with cardiology within 1 to 2 weeks of discharge
Follow-up with urologist after discharge for cystoscopy and trial of void
Instructions: *PCP/Other [employer] Operator Heart Failure Instructions
Referrals:
aRj Holt MD [Family Provider] - in less than 1 week
Diogenes Glover MD [Active] - (you have a mass/ shadow on cat scan of bladder This needs evaluation call Dr stone 2- 6 weeks [phone] to schedule appt)
Glenda Merlos DO [Active] - in one to two weeks
Devante Tsai MD [Active] - in one to two weeks
Additional Discharge Medication Instructions: Start aspirin 81 mg daily
Start empagliflozin 10 mg daily
Start Lasix 40 mg daily
Start isosorbide mononitrate 30 mg daily
Start metoprolol succinate 25 mg twice daily
Start valsartan 80 mg daily
Start rosuvastatin 20 mg nightly
Start ferrous sulfate 325 daily
Continue acyclovir 800 mg 5 times daily through 11/24/2024 for shingles
Continue with cefdinir 300 mg every 12 hours through 11/21/2024
Prescriptions:
New
furosemide 40 mg Tablet
40 mg PO DAILY 30 Days Qty: 30 0RF
aspirin 81 mg Tablet,Chewable
81 mg PO DAILY 30 Days Qty: 30 0RF
rosuvastatin 20 mg Tablet
20 mg PO QPM 30 Days Qty: 30 0RF
isosorbide mononitrate 30 mg Tablet Extended Release 24 Hr
30 mg PO DAILY 30 Days Qty: 30 0RF
valsartan 80 mg Tablet
80 mg PO DAILY 30 Days Qty: 30 0RF
metoprolol succinate 25 mg Tablet Extended Release 24 Hr
25 mg PO BID 30 Days Qty: 60 0RF
dapagliflozin propanediol 10 mg Tablet
10 mg PO DAILY 30 Days Qty: 30 0RF
cefdinir 300 mg capsule
300 mg PO Q12H 9 Days Qty: 18 0RF
ferrous sulfate [FeroSul] 325 mg (65 mg iron) Tablet
325 mg PO DAILY 30 Days Qty: 30 0RF
acyclovir 800 mg Tablet
800 mg PO 5/D 9 Days Qty: 45 0RF
Continued
insulin glargine [Lantus U-100 Insulin] 100 UNITS/1 ML solution
10 units SC HS
Patient Comments:
hold less than 150
divalproex 500 MG tablet,delayed release (DR/EC)
500 mg PO HS
acetaminophen 325 MG tablet
650 mg PO DAILYPRN PRN (Reason: mild pain)
risperidone 2 MG tablet
2 mg PO HS
metformin 1,000 MG tablet
1,000 mg PO BID@0800,1700
fluticasone propion-salmeterol 1 DISK blister with device
1 puff inhalation R BID
albuterol sulfate 1 PUFF HFA aerosol inhaler
2 puff inhalation R Q4HPRN PRN (Reason: sob)
risperidone 1 MG tablet
1 mg PO DAILY
levothyroxine 25 MCG tablet
25 mcg PO DAILY AT 0700 Qty: 30 0RF
albuterol sulfate 2.5 MG/3 ML solution for nebulization
2.5 mg inhalation R Q4HPRN PRN (Reason: SOB/wheeze)
pantoprazole [Protonix] 40 mg tablet,delayed release (DR/EC)
40 mg PO DAILY Qty: 30 0RF
metronidazole 500 mg tablet
500 mg PO TID Qty: 21 0RF
ondansetron 4 mg tablet,disintegrating
4 mg PO Q8H PRN (Reason: nausea and vomiting) Qty: 10 0RF
Discontinued
acetaminophen [Tylenol Arthritis] 650 MG tablet extended release
650 mg PO HS
cephalexin 500 mg capsule
500 mg PO BID 7 Days Qty: 14 0RF
amoxicillin-pot clavulanate 875-125 mg tablet
1 tab PO BID Qty: 19 0RF
levofloxacin 500 mg tablet
500 mg PO DAILY 7 Days Qty: 7 0RF
furosemide 20 MG tablet
10 mg PO DAILY
amoxicillin-pot clavulanate 875-125 mg tablet
1 tab PO BID
Discharge Orders:
Discharge Patient (As Directed); Ordered 11/14/24
Ordered By: Frandy Abraham
Care Plan Goals
Care Plan Goals:
Problem: Readiness for enhanced knowledge related to diagnosis and treatment plan
Goal: Understand your diagnosis and treatment plan needs, including medications if applicable.
Instructions: Know your diagnosis, underlying causes and treatment plan options, including medications if applicable. Consult with your health care team to learn about your diagnosis and treatment plan, including medications if applicable.
Discharge Date and Time
Print Language: MALTESE
--- NOTE | 2024-11-14 13:54 | CM ---
Patient has a diagnosis of schizophrenia and PASRR needs to reflect diagnosis, manager case spoke with physician and admissions at skilled facility and patient qualifies for a 30 day exemption for placement at skilled facility, all necessary
paperwork including PASRR and physician documentation sent to facility. Patient with new diagnosis of shingles, and updates sent to skilled facility, patient will be placed in a private room at [facility]. Auth received and faxed to skilled
facility, Letter of medical necessity typed and signed by physician and provided to patient's granddaughter, Lory today.
Plan; Patient to transfer to [facility] today.
Report [phone]
[2024-11-14 14:58] VITALS: BP 136/51
== END 2024-11-14 16:47 | DRG 871 ==
LOC: 4 WEST ACU 04:13
PROVIDERS: Emergency Medicine; Internal Medicine; ADMITTING PHYSICIAN Internal Medicine; ATTENDING PHYSICIAN Internal Medicine; CONSULT PHYSICIAN Internal Medicine; CONSULT PHYSICIAN Internal Medicine Cardiovascular Disease; CONSULT PHYSICIAN Specialist; EMERGENCY PHYSICIAN Student in an Organized Health Care Education/Training Program; FAMILY PHYSICIAN Family Medicine
PROC: 30233N1 Transfusion of Nonautologous Red Blood Cells into Peripheral Vein, Percutaneous Approach (ICD-10-PCS; 2024-11-04)
DX: A41.9 Sepsis, unspecified organism (principal); I50.31 Acute diastolic (congestive) heart failure; J96.01 Acute respiratory failure with hypoxia; K57.33 Diverticulitis of large intestine without perforation or abscess with bleeding; E87.1 Hypo-osmolality and hyponatremia; N17.9 Acute kidney failure, unspecified; N13.6 Pyonephrosis; I5A Non-ischemic myocardial injury (non-traumatic); F02.A3 Dementia in other diseases classified elsewhere, mild, with mood disturbance; F02.A4 Dementia in other diseases classified elsewhere, mild, with anxiety; J45.41 Moderate persistent asthma with (acute) exacerbation; F20.9 Schizophrenia, unspecified; I11.0 Hypertensive heart disease with heart failure; B02.9 Zoster without complications; E03.9 Hypothyroidism, unspecified; N32.9 Bladder disorder, unspecified; B96.20 Unspecified Escherichia coli [E. coli] as the cause of diseases classified elsewhere
CPT/HCPCS: 71045; 71046; 74177; 80048; 80053; 80061; 80164; 82570; 82728; 82962; 83036; 83540; 83550; 83735; 83880; 83935; 84300; 84439; 84443; 84484; 84550; 85014; 85018; 85025; 85027; 85610; 85730; 86850; 86900; 86901; 86920; 87040; 90662; 92610; 93005; 93306; 94640; 96374; 97163; 97167; 97530; 97535; 99291; G0008; P9016; Q9967

== ENCOUNTER 2025-06-04 06:20 | Day surgery (SDC) | payer OTHER, SELFPAY ==
[2025-06-04 09:11] LABS: Glucose - Point of Care 92 mg/dl (70-99)
[2025-06-04 10:45] LABS: Glucose - Point of Care 109 mg/dl (70-99)
== END 2025-06-04 10:18 | disposition home or self-care (01) ==
LOC: GI 06:20
PROVIDERS: ATTENDING PHYSICIAN Internal Medicine
DX: Z12.11 Encounter for screening for malignant neoplasm of colon (principal); D12.0 Benign neoplasm of cecum; K55.21 Angiodysplasia of colon with hemorrhage; D12.3 Benign neoplasm of transverse colon; D12.5 Benign neoplasm of sigmoid colon; D50.9 Iron deficiency anemia, unspecified; K57.30 Diverticulosis of large intestine without perforation or abscess without bleeding; K64.8 Other hemorrhoids; Z86.0100 Personal history of colon polyps, unspecified; K25.9 Gastric ulcer, unspecified as acute or chronic, without hemorrhage or perforation; K31.A0 Gastric intestinal metaplasia, unspecified; K31.89 Other diseases of stomach and duodenum
CPT/HCPCS: 45382; 45385; 45380; 43239; 82962; 88305; 88342

== ENCOUNTER 2025-10-08 21:39 | Inpatient (IN) | payer OTHER, SELFPAY ==
[2025-10-08 14:26] VITALS: BP 103/67
[2025-10-08 15:13] LABS: Hematocrit 32.2 % (37.0-47.0); Hemoglobin 10.7 g/dL (12.0-16.0); Mean Corp Hgb Conc. 33.2 g/dL (33.0-37.0); Mean Corpuscular Volume 82.6 fL (81.0-99.0); Nucleated Red Blood Cells % 0 %; Platelet Count 253 10^3/uL (130-400); Red Cell Dist. Width 13.5 % (11.5-14.5)
[2025-10-08 15:24] LABS: INR 0.99; PT 13.2 Sec (11.4-14.6)
[2025-10-08 15:28] LABS: COVID-19 Antigen Negative (Negative)
[2025-10-08 15:30] LABS: ALT (SGPT) 17 U/L (0-35); AST (SGOT) 24 U/L (14-36); Albumin 3.9 g/dl (3.5-5.0); Alkaline Phosphatase 94 U/L (38-126); Blood Urea Nitrogen 24 mg/dl (7-17); Calcium 9.6 mg/dl (8.4-10.2); Carbon Dioxide 23 mmol/L (22-30); Chloride 96 mmol/L (98-107); Glucose 249 mg/dl (70-99); Sodium 131 mmol/L (135-145); Total Protein 7.2 g/dl (6.3-8.2); eGFR 39.31
[2025-10-08 15:36] LABS: Potassium 4.3 mmol/L (3.5-5.1); Troponin I 0.027 ng/ml
--- NOTE | 2025-10-08 18:45 | ED.GENMED ---
History of Present Illness
<Gerri Arciniega EXTRACTOR AND WRINGER OPERATOR - Last Filed: 10/08/25 18:46>
General
Chief Complaint: Weakness
Source: halfway
Time Seen by Provider: 10/08/25 18:40
<Raj Garcia DO - Last Filed: 10/08/25 20:28>
General
Source: patient and family
Exam Limitations: none
Nursing documentation reviewed up to this point in time: agreed with
History of Present Illness
History of Present Illness:
Note:
CHIEF COMPLAINT(S)
Weakness and frequent urination.
HISTORY OF PRESENT ILLNESS
The patient is a 89-year-old female presenting with weakness and frequent urination. She reported feeling dizzy and weak when going to the bathroom. An episode occurred where she felt her legs were weak, causing her to fall, although she managed to
lower herself slowly to avoid injury. Earlier in the day, the patient was evaluated by Dr. Glover and underwent an ultrasound to assess her bladder. It was noted that the patient had a catheter inserted, which was subsequently removed. No injury
occurred when the patient caught herself during the fall.
ADDITIONAL HISTORY OBTAINED FROM SOURCES OTHER THAN THE PATIENT
Information was obtained from the patients relative, who clarified that the patient had a fall but did not sustain any injuries.
EXTERNAL RECORDS REVIEWED
The conversation indicates previous tests were conducted, and x-rays were mentioned to be fine. An ultrasound was performed to evaluate bladder fullness, and the results were pending at the time of this conversation.
Physical Exam
General: Confused
Neck: supple. no meningeal signs. normal posterior pharynx
Heart: s1/s2 regular rate and rhythm, no murmur. equal radial
pulses.
HEENT: Pupils equal round reactive to light, EOMI
Lungs: no acute respiratory distress. clear bilaterally
Abdomen: normal bowel sounds. Suprapubic tenderness
No CVAT
Neuro: alert and oriented to person. no focal neurological deficits cranial nerves II through XII intact
Skin: no rash
Psychiatric: well kept. interactive and cooperative
Extremities: no edema. no calf tenderness. negative homans. good distal pulses
PLAN
The plan involved conducting a urine scan and potentially re-inserting a catheter to assess and manage the patient�s bladder status.
DIFFERENTIAL DIAGNOSIS
The Differential Diagnosis includes, in no particular order and is not limited to:
1. Urinary tract infection
2. Orthostatic hypotension
3. Hypoglycemia
4. Electrolyte imbalance
5. Dehydration
6. Neurological disorder
7. Vasovagal syncope
8. Anemia
9. Medication side effect
10. Cardiovascular event
Disposition:
SUMMARY OF ENCOUNTER
The patient, a 89-year-old female, presented to the emergency department with complaints of weakness and frequent urination. She experienced dizziness and felt weak, especially when using the bathroom, leading to an episode where her leg weakness
caused a fall. A bladder ultrasound was conducted earlier, revealing potential issues with urinary retention. A Majano catheter had been placed to relieve the retention and assess bladder status. Based on the current assessment, a urinary tract
infection was suspected, and urinary retention was confirmed.
DISPOSITION
The patient is admitted for further inpatient treatment and evaluation by the hospitalist.
ASSESSMENT
- Urinary tract infection
- Urinary retention
- Weakness secondary to these conditions
EMERGENCY TREATMENTS ADMINISTERED
- Administration of antibiotics, ceftriaxone, was provided to address the suspected urinary tract infection.
- A Majano catheter was placed to manage urinary retention.
PLAN
The patient will be admitted under the care of the hospitalist team for continued evaluation and management. The plan includes further treatment of the urinary tract infection and monitoring of urinary retention and general health status.
MEDICATION RECONCILIATION
- Ceftriaxone was administered for the suspected urinary tract infection.
MEDICAL DECISION MAKING
-Complexity of Data Reviewed: Chronic conditions affecting care included frequent urination and weakness. The differential diagnoses considered were: urinary tract infection, orthostatic hypotension, hypoglycemia, electrolyte imbalance, dehydration,
neurological disorder, vasovagal syncope, anemia, medication side effect, cardiovascular event.
-Data:
Category 1: The patients prior external records, including recent ultrasound findings and x-rays, were reviewed. The clinical information was also supported by details from a relative.
-Risk: Consideration of Admission/Observation was undertaken due to the complexity and risk of the patient�s presenting symptoms, including weakness and urinary issues. She is considered appropriate for inpatient care to ensure correct diagnosis and
treatment.
DIAGNOSIS
- Urinary tract infection (ICD-10: N39.0)
- Urinary retention (ICD-10: R33.8)
- Generalized weakness (ICD-10: R53.1)
Past History
<Gerri Arciniega, EXTRACTOR AND WRINGER OPERATOR - Last Filed: 10/08/25 18:46>
Past History
ED Past Medical History: Asthma, Cancer (Leukemia), GERD, HTN, Hypercholesterolemia, NIDDM, Hypothyroidism, Psychiatric (Depression. Schizophrenia) and Other (Alzheimer's, GI bleeding, UTI, back pain, )
ED Past Surgical History: Other (EYE SURGERY)
Social History
Tobacco: Non-smoker
Alcohol: None
Drug: None
Personal:
Living: with family
Employment: Not employed
Family History
Family History: Diabetes
Phy Exam
<Raj Garcia DO - Last Filed: 10/08/25 20:28>
Physical Exam
Physical Exam:
.
Course
<Gerri Arciniega, EXTRACTOR AND WRINGER OPERATOR - Last Filed: 10/08/25 18:46>
Orders/Labs/Results
Orders:
Orders
10/08/25 14:27
EKG [Electrocardiogram (*1)] Urgent
Reason for Study: Fatigue / Weakness
10/08/25 14:28
EKG- Treatment ONCE
10/08/25 14:29
CR Chest - 2 Views Urgent
Comment:
Reason For Exam: cough
10/08/25 14:50
COVID-19 Antigen Urgent
Source: Nasal Swab
Complete Blood Count/With Diff Urgent
Comprehensive Metabolic Panel Urgent
Prothrombin Time Urgent
Troponin I Urgent
Influenza A+B Rapid Molecular Urgent
DONAVAN Source: Nasal Swab
Specimen Description:
10/08/25 18:44
0.9% Sodium Chloride 500 ml [Nss] 500 ml IV BOLUS
10/08/25 18:51
Bladder Scan- Treatment ONCE
Majano Placement- Treatment ONCE
Reason for insertion: Acute Retention
10/08/25 19:44
Urinalysis Reflex To Culture Urgent
Date Specimen was Collected: 10/08/25
Time Specimen was Collected: 14:27
Urine Microscopic Reflex Cult Urgent
Urine Culture Urgent
DONAVAN Source: U
Specimen Description:
Date Specimen was Collected: 10/08/25
Time Specimen was Collected: 14:27
10/08/25 20:23
CefTRIAXone [Rocephin] 1,000 mg IV NOW STA
Abnormal Lab Results
10/08/25 10/08/25
14:50 19:44
RBC 3.90 L 10^6/uL
(4.20-5.40)
Hgb 10.7 L g/dL
(12.0-16.0)
Hct 32.2 L %
(37.0-47.0)
Absolute Lymphs (auto) 0.7 L 10^3/uL
(1.2-3.4)
Absolute Monos (auto) 1.0 H 10^3/uL
(0.1-0.6)
Lymphocytes % 10.3 L %
(20.5-51.1)
Monocytes % 13.5 H %
(1.7-9.3)
Sodium 131 L mmol/L
(135-145)
Chloride 96 L mmol/L
(98-107)
BUN 24 H mg/dl
(7-17)
Creatinine 1.3 H mg/dL
(0.6-1.0)
Glucose 249 H mg/dl
(70-99)
Ur Occult Blood Reflex 1+ A
(Negative)
Urine Nitrite (Reflex) Positive A
(Negative)
Urine Bacteria (Reflex) Many A
(Negative)
Urine Glucose 4+ A
(Negative)
Urine Albumin (Reflex) 2+ A
(Neg - Trace)
10/08/25 14:50
10/08/25 14:50
Vital Signs
Initial and Last Documented VS:
Initial Vital Signs
Temp Pulse Resp BP Pulse Ox
98.7 F 116 18 103/67 96
10/08/25 14:26 10/08/25 14:26 10/08/25 14:26 10/08/25 14:26 10/08/25 14:26
Last Documented Vital Signs
Temp Pulse Resp BP Pulse Ox
98.7 F 100 18 103/67 92
10/08/25 14:26 10/08/25 19:45 10/08/25 19:45 10/08/25 14:26 10/08/25 19:45
<Raj Garcia, DO - Last Filed: 10/08/25 20:28>
Orders/Labs/Results
Orders:
Orders
10/08/25 14:27
EKG [Electrocardiogram (*1)] Urgent
Reason for Study: Fatigue / Weakness
10/08/25 14:28
EKG- Treatment ONCE
10/08/25 14:29
CR Chest - 2 Views Urgent
Comment:
Reason For Exam: cough
10/08/25 14:50
COVID-19 Antigen Urgent
Source: Nasal Swab
Complete Blood Count/With Diff Urgent
Comprehensive Metabolic Panel Urgent
Prothrombin Time Urgent
Troponin I Urgent
Influenza A+B Rapid Molecular Urgent
DONAVAN Source: Nasal Swab
Specimen Description:
10/08/25 18:44
0.9% Sodium Chloride 500 ml [Nss] 500 ml IV BOLUS
10/08/25 18:51
Bladder Scan- Treatment ONCE
Majano Placement- Treatment ONCE
Reason for insertion: Acute Retention
10/08/25 19:44
Urinalysis Reflex To Culture Urgent
Date Specimen was Collected: 10/08/25
Time Specimen was Collected: 14:27
Urine Microscopic Reflex Cult Urgent
Urine Culture Urgent
DONAVAN Source: U
Specimen Description:
Date Specimen was Collected: 10/08/25
Time Specimen was Collected: 14:27
10/08/25 20:23
CefTRIAXone [Rocephin] 1,000 mg IV NOW STA
Abnormal Lab Results
10/08/25 10/08/25
14:50 19:44
RBC 3.90 L 10^6/uL
(4.20-5.40)
Hgb 10.7 L g/dL
(12.0-16.0)
Hct 32.2 L %
(37.0-47.0)
Absolute Lymphs (auto) 0.7 L 10^3/uL
(1.2-3.4)
Absolute Monos (auto) 1.0 H 10^3/uL
(0.1-0.6)
Lymphocytes % 10.3 L %
(20.5-51.1)
Monocytes % 13.5 H %
(1.7-9.3)
Sodium 131 L mmol/L
(135-145)
Chloride 96 L mmol/L
(98-107)
BUN 24 H mg/dl
(7-17)
Creatinine 1.3 H mg/dL
(0.6-1.0)
Glucose 249 H mg/dl
(70-99)
Ur Occult Blood Reflex 1+ A
(Negative)
Urine Nitrite (Reflex) Positive A
(Negative)
Urine Bacteria (Reflex) Many A
(Negative)
Urine Glucose 4+ A
(Negative)
Urine Albumin (Reflex) 2+ A
(Neg - Trace)
10/08/25 14:50
10/08/25 14:50
Vital Signs
Initial and Last Documented VS:
Initial Vital Signs
Temp Pulse Resp BP Pulse Ox
98.7 F 116 18 103/67 96
10/08/25 14:26 10/08/25 14:26 10/08/25 14:26 10/08/25 14:26 10/08/25 14:26
Last Documented Vital Signs
Temp Pulse Resp BP Pulse Ox
98.7 F 100 18 103/67 92
10/08/25 14:26 10/08/25 19:45 10/08/25 19:45 10/08/25 14:26 10/08/25 19:45
<Gerri Arciniega, EXTRACTOR AND WRINGER OPERATOR - Last Filed: 10/08/25 18:46>
*Pulse Oximetry
SaO2: 94
Oxygen Mode of Delivery: Room air
<Raj Garcia DO - Last Filed: 10/08/25 20:28>
*Pulse Oximetry
Patient hypoxic: no
*Critical Care Note
Total Time (30-74mins, 75-104mins- exclusive of procedures): Not Applicable
ED Attending Note
<Gerri Arciniega, EXTRACTOR AND WRINGER OPERATOR - Last Filed: 10/08/25 18:46>
-
Portions of this chart may have been created with voice recognition software.� Occasional wrong word or��sound alike� substitutions may have occurred due to the inherent limitations of voice recognition software.
Discharge Plan
Departure
Patient Disposition: Admit
Date of Disposition: 10/08/25
Time of Disposition: 20:24
Admit to: Med/Surg
Presentation/result/management discussed w/ accepting MD/DO: Hospitalist
Patient with high blood pressure during this ER visit?: No
Condition: Fair
Discharge Problem:
UTI (urinary tract infection), MENDOZA (acute kidney injury), Weakness, Acute urinary retention
Prescriptions:
No Action
insulin glargine [Lantus U-100 Insulin] 100 UNITS/1 ML solution
10 units SC HS
Patient Comments:
hold less than 150
divalproex 500 MG tablet,delayed release (DR/EC)
500 mg PO HS
acetaminophen 325 MG tablet
650 mg PO DAILYPRN PRN (Reason: mild pain)
risperidone 2 MG tablet
2 mg PO HS
metformin 1,000 MG tablet
1,000 mg PO BID@0800,1700
fluticasone propion-salmeterol 1 DISK blister with device
1 puff inhalation R BID
albuterol sulfate 1 PUFF HFA aerosol inhaler
2 puff inhalation R Q4HPRN PRN (Reason: sob)
risperidone 1 MG tablet
1 mg PO DAILY
levothyroxine 25 MCG tablet
25 mcg PO DAILY AT 0700 Qty: 30 0RF
albuterol sulfate 2.5 MG/3 ML solution for nebulization
2.5 mg inhalation R Q4HPRN PRN (Reason: SOB/wheeze)
pantoprazole [Protonix] 40 mg tablet,delayed release (DR/EC)
40 mg PO DAILY Qty: 30 0RF
metronidazole 500 mg tablet
500 mg PO TID Qty: 21 0RF
ondansetron 4 mg tablet,disintegrating
4 mg PO Q8H PRN (Reason: nausea and vomiting) Qty: 10 0RF
furosemide 40 mg Tablet
40 mg PO DAILY 30 Days Qty: 30 0RF
aspirin 81 mg Tablet,Chewable
81 mg PO DAILY 30 Days Qty: 30 0RF
rosuvastatin 20 mg Tablet
20 mg PO QPM 30 Days Qty: 30 0RF
isosorbide mononitrate 30 mg Tablet Extended Release 24 Hr
30 mg PO DAILY 30 Days Qty: 30 0RF
valsartan 80 mg Tablet
80 mg PO DAILY 30 Days Qty: 30 0RF
metoprolol succinate 25 mg Tablet Extended Release 24 Hr
25 mg PO BID 30 Days Qty: 60 0RF
dapagliflozin propanediol 10 mg Tablet
10 mg PO DAILY 30 Days Qty: 30 0RF
cefdinir 300 mg capsule
300 mg PO Q12H 9 Days Qty: 18 0RF
ferrous sulfate [FeroSul] 325 mg (65 mg iron) Tablet
325 mg PO DAILY 30 Days Qty: 30 0RF
acyclovir 800 mg Tablet
800 mg PO 5/D 9 Days Qty: 45 0RF
Referrals:
Raj Holt MD [Family Provider, Family Practice]
Interventions
Interventions:
*General Assessment Last Done: 10/08/25 14:24
*Neglect/Abuse Screening Last Done: 10/08/25 14:24
*ED COVID-19 Vaccine History Last Done: 10/08/25 14:24
*ED Influenza Vaccine History Last Done: 10/08/25 14:24
[facility] Fall Risk Assessment Tool Last Done: 10/08/25 17:57
*Risk Screen - Suicide (C-SSRS) Last Done: 10/08/25 14:24
ED- Cardiac Assessment Last Done: 10/08/25 17:57
ED- Neurological Assessment Last Done: 10/08/25 17:57
ED- Pulmonary Assessment Last Done: 10/08/25 17:58
Discharge Date and Time
Print Language: GABONESE
[2025-10-08] MEDS: NSS 500 IV (19:33)
[2025-10-08 19:56] LABS: Urine Character Slightly Cloudy (Clear)
[2025-10-08 20:00] VITALS: BP 119/15
[2025-10-08 20:07] LABS: Urine Red Blood Cell 0-2 /HPF (0-2)
[2025-10-08] MEDS: ROCEPHIN 1000 MG IV (20:57)
--- NOTE | 2025-10-08 20:59 | HPS.HSE ---
Family Physician
-
Family Physician: Raj Holt
Chief Complaint
-
decreased urination
History of Present Illness
89-year-old Lebanese-speaking female past medical history of recurrent UTIs, schizophrenia, diabetes, CKD, asthma, hypothyroidism, GERD, chronic hyponatremia, presenting with weakness and small amounts of urination. History is obtained from
patient's granddaughter. She felt dizzy and weak going to the bathroom. She felt her legs were weak causing her to fall and measure lowered self slowly to avoid injury. A few weeks ago she was noted to have urinary retention and had a Majano
catheter placed by Dr. Glover. Majano catheter was since removed. She did not have any burning with urination. No fevers or chills. She has been a little bit constipated but did go to the bathroom yesterday. She did not have vomiting or
diarrhea.
She was treated with antibiotics for UTI 2 to 3 weeks ago.
She also complained of discomfort and redness on upper surface of her hard palate for past few days. She denies any sore throat or cough.
She does not smoke or drink alcohol.
Medical History
Past Medical History
Past Medical History: Reports Other (recurrent UTIs, schizophrenia, diabetes, CKD, asthma, hypothyroidism, GERD, chronic hyponatremia)
Past Surgical History: Reports None
Social History
Tobacco: Non-smoker
Alcohol: None
Drug: None
Family History
Family History: Not pertinent
Allergies / Home Medications
Allergies reflects when Allergies were last updated in [employer].
Home Medications with original date entered in [employer]
Allergy/Medication List:
Allergies
Allergy/AdvReac Type Severity Reaction Status Date / Time
No Known Drug Allergies Allergy Unknown Verified 10/08/25 14:23
Home Medications
insulin glargine 100 unit/mL subcutaneous solution (Lantus U-100 Insulin) 10 units SC HS Diabetes 09/27/11
divalproex 500 mg tablet,delayed release 500 mg PO HS Neurological Condition 12/08/11
acetaminophen 325 mg tablet 650 mg PO DAILYPRN PRN mild pain 05/22/19
albuterol sulfate 90 mcg/actuation aerosol inhaler 2 puff inhalation R Q4HPRN PRN sob 05/22/19
fluticasone 100 mcg-salmeterol 50 mcg/dose blistr powdr for inhalation 1 puff inhalation R BID Lung/Breathing Issues 05/22/19
metformin 1,000 mg tablet 1,000 mg PO BID@0800,1700 Diabetes 05/22/19
risperidone 1 mg tablet 1 mg PO DAILY Mental Health/Anxiety 05/22/19
risperidone 2 mg tablet 2 mg PO HS Mental Health/Anxiety 05/22/19
levothyroxine 25 mcg tablet 25 mcg PO DAILY AT 0700 ##30 05/24/19
albuterol sulfate 2.5 mg/3 mL (0.083 %) solution for nebulization 2.5 mg inhalation R Q4HPRN PRN SOB/wheeze 03/02/21
pantoprazole 40 mg tablet,delayed release (Protonix) 40 mg PO DAILY Gastrointestinal issue #30 tabs 10/21/24
metronidazole 500 mg tablet 500 mg PO TID Gastrointestinal issue #21 tabs 11/02/24
ondansetron 4 mg disintegrating tablet 4 mg PO Q8H PRN nausea and vomiting #10 tabs 11/02/24
aspirin 81 mg chewable tablet 81 mg PO DAILY Blood clot prevention/tx 30 days #30 tabs 11/09/24
cefdinir 300 mg capsule 300 mg PO Q12H Infection 9 days #18 caps 11/09/24
dapagliflozin propanediol 10 mg tablet 10 mg PO DAILY 30 days #30 tabs 11/09/24
furosemide 40 mg tablet 40 mg PO DAILY Heart Failure 30 days #30 tabs 11/09/24
isosorbide mononitrate 30 mg tablet,extended release 24 hr 30 mg PO DAILY 30 days #30 tabs 11/09/24
metoprolol succinate 25 mg tablet,extended release 24 hr 25 mg PO BID 30 days #60 tabs 11/09/24
rosuvastatin 20 mg tablet 20 mg PO QPM High cholesterol 30 days #30 tabs 11/09/24
valsartan 80 mg tablet 80 mg PO DAILY 30 days #30 tabs 11/09/24
ferrous sulfate 325 mg (65 mg iron) tablet (FeroSul) 325 mg PO DAILY 1 month #30 tabs 11/12/24
acyclovir 800 mg tablet 800 mg PO 5/D shingles 9 days #45 tabs 11/14/24
Review of Systems
-
History Source: Patient
A 12 point ROS was completed and negative except as noted: Yes
Constitutional: Reports No Symptoms
EENT: Reports No Symptoms
Respiratory: Reports No Symptoms
Cardiac: Reports No Symptoms
Abdomen/GI: Reports No Symptoms
: Reports See HPI
Musculoskeletal: Reports No Symptoms
Skin: Reports No Symptoms
Neurological: Reports No Symptoms
Endocrine: Reports No Symptoms
Hematologic/Lymphatic: Reports No Symptoms
Psych: Reports No Symptoms
Physical Exam
Vital Signs
Vital Signs
Temp Pulse Resp BP Pulse Ox
98.7 F 100 18 103/67 92
10/08/25 14:26 10/08/25 19:45 10/08/25 19:45 10/08/25 14:26 10/08/25 19:45
Physical Exam
General: Well Developed, Well Nourished and No Apparent Distress
HEENT: NormoCephalic, Moist mucous membranes and Atraumatic
Respiratory: Clear
Cardiac: S1/S2 and Regular Rhythm; No Murmur or Rub
GI: Soft, Non Tender, Non Distended and Normal Bowel Sounds; No Organomegaly
Rectal: Deferred by Provider
Musculoskeletal: No Clubbing, No Cyanosis and No Edema
Skin: No Rash
Neuro: Nonfocal/grossly intact
Laboratory Results
-
10/08/25 14:50
10/08/25 14:50
Laboratory Results
PT 13.2 Sec (11.4-14.6) 10/08/25 14:50
INR 0.99 10/08/25 14:50
Total Bilirubin 0.3 mg/dl (0.2-1.3) 10/08/25 14:50
AST 24 U/L (14-36) 10/08/25 14:50
ALT 17 U/L (0-35) 10/08/25 14:50
Alkaline Phosphatase 94 U/L (38-126) 10/08/25 14:50
Troponin I 0.027 ng/ml 10/08/25 14:50
Data Reviewed
-
Lab Data: Labs Reviewed by me
Old Records: Reviewed
Impression/Plan
-
IMPRESSION:
PLAN:
# Urinary retention unclear etiology could be related to constipation
# Possible UTI
# History of frequent UTIs
-Urinalysis showing 6-10 WBC, positive nitrates,
- Retaining 350 cc on bladder scan
- Majano catheter placed here
- Ceftriaxone
# Hard palate erythema
- Could be secondary to irritation from dentures versus spicy/hot food
- Continue to monitor
# Hyperglycemia
# Type 2 diabetes
- Hold metformin
- Insulin sliding scale
- Continue Lantus 10 units
- Hold dapagliflozin
Chronic kidney disease
- Creatinine 1.3 from 1.1
- IV fluids given, can hold further fluids
Schizophrenia
- Continue Risperdal, Depakote
Asthma
- Continue albuterol
Hypothyroidism
- Continue levothyroxine
GERD
- Continue Protonix
Chronic hyponatremia
Chronic anemia
- Hemoglobin stable 10.7
Full code
DVT prophylaxis�heparin
Diabetic diet
[2025-10-08 21:00] VITALS: BP 138/65
[2025-10-08 22:34] VITALS: BP 155/65; BMI 35.9
[2025-10-08 23:36] LABS: Glucose - Point of Care 158 mg/dl (70-99)
[2025-10-09] MEDS: SYNTHROID 25 MCG PO (05:35)
[2025-10-09 06:59] LABS: Glucose - Point of Care 108 mg/dl (70-99)
[2025-10-09 07:00] VITALS: BP 136/61
[2025-10-09] MEDS: ADVAIR HFA 45/21 MCG INHALER 2 PUFF INH (07:32)
[2025-10-09 07:55] LABS: Hematocrit 30.4 % (37.0-47.0); Hemoglobin 10.0 g/dL (12.0-16.0); Mean Corp Hgb Conc. 32.9 g/dL (33.0-37.0); Mean Corpuscular Volume 83.3 fL (81.0-99.0); Nucleated Red Blood Cells % 0 %; Platelet Count 251 10^3/uL (130-400); Red Cell Dist. Width 13.4 % (11.5-14.5)
--- NOTE | 2025-10-09 08:32 | W.PN.HOSP.TC ---
Today's Communication/Plan
-
Antibiotics. Majano catheter. PT OT
Assessment / Plan
Assessment / Plan
Physical exam:
General: Acute and chronically ill
HEENT: Normocephalic, mild right shoulder and arm discomfort but normal range of motion, atraumatic and Moist Mucous Membranes
Respiratory: Clear to Auscultation; Negative Wheezes, Rales or Rhonchi
Cardiac: Regular Rhythm and S1/S2
GI: Soft, Nontender and Nondistended
Musculoskeletal: No Clubbing, No Cyanosis and No Edema
Neuro: Awake, Alert and Disoriented, generalized weakness, mild rigidity, mild bradykinesia, unilateral resting tremors.
Psych: Calm, limited judgment and insight.
A/P:
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
PT OT eval
Curb-sided neurology
Will start on Cogentin and see how she responds
Acute urinary retention:
Continue Majano catheter
UTI:
Continue IV ceftriaxone
Follow-up urine culture
MENDOZA on CKD:
Creatinine 1.1 today
Creatinine was 1.3 yesterday and baseline around 1
URI:
Nasal saline
Pulmicort twice daily neb
DuoNeb as needed
Seen chest x-ray and no acute chest pathology
Hyponatremia:
Mild and chronic
Continue to monitor
Schizophrenia:
On Depakote 500 mg twice a day and risperidone 1 mg morning and 2 mg in the evening
Hypertension:
Continue losartan 80 mg p.o. daily and metoprolol succinate 25 mg twice a day
Hyperlipidemia:
Continue home statin
Diabetes mellitus type 2:
Continue insulin sliding scale
Holding oral hypoglycemic
Hemoglobin A1c 6.9
Hypothyroidism:
Continue levothyroxine 25 mcg p.o. daily
GERD:
Continue oral PPI
Asthma:
No evidence of exacerbation
Hold on systemic steroids
Anemia:
No signs of bleeding
Hemoglobin at baseline
Continue to monitor hemoglobin
DVT prophylaxis:
Heparin SQ
CODE STATUS:
Full code
Total time spent on today's encounter was 52 minutes which included time spent in counseling the patient/family regarding diagnosis and treatment plan as listed above, goals of care, and symptom management. Case was discussed with nursing staff,
specialists, and care coordinators/case management. All labs and imaging personally reviewed by me. Remainder the time spent in detailed review of previous records, lab data, imaging, and other medical provider documentation.
Anticipated Discharge: > 48 hours
Subjective/Interval History
-
Date of Service: October 09, 2025
Patient complains of stuffy nose and cannot breathe well as a consequence. Mild discomfort shoulders and arms and family reports recent fall. Patient has some resting unilateral tremor and bradykinesia. Majano catheter in place
Objective Data
-
Labs:
Laboratory Results
10/09/25
06:21
WBC 6.4
Hgb 10.0 L
Hct 30.4 L
Plt Count 251
Sodium Pending
Potassium Pending
Chloride Pending
Carbon Dioxide Pending
BUN Pending
Creatinine Pending
Glucose Pending
Calcium Pending
Total Bilirubin Pending
AST Pending
ALT Pending
Alkaline Phosphatase Pending
Vital Signs:
Vital Signs
Temp Pulse Resp BP Pulse Ox
99.1 F 84 16 155/65 95
10/08/25 22:34 10/09/25 07:35 10/09/25 07:35 10/08/25 22:34 10/08/25 22:34
I&O
10/08/25 10/09/25 10/10/25
06:59 06:59 06:59
Output Total 1000 / 1000
Balance -1000 / -1000
[2025-10-09 08:59] LABS: ALT (SGPT) 14 U/L (0-35); AST (SGOT) 20 U/L (14-36); Albumin 3.3 g/dl (3.5-5.0); Alkaline Phosphatase 76 U/L (38-126); Blood Urea Nitrogen 17 mg/dl (7-17); Calcium 9.0 mg/dl (8.4-10.2); Carbon Dioxide 25 mmol/L (22-30); Chloride 100 mmol/L (98-107); Estimated Creatinine Clearance 24 ml/min; Glucose 95 mg/dl (70-99); Potassium 4.0 mmol/L (3.5-5.1); Sodium 133 mmol/L (135-145); Total Protein 6.3 g/dl (6.3-8.2); eGFR 48.03
[2025-10-09 09:05] LABS: Glycohemoglobin (HgbA1c) 6.9 % (4.0-5.9)
[2025-10-09] MEDS: NOVOLOG FLEXPEN-LOW RESISTANCE SC (09:36)
[2025-10-09] MEDS: TOPROL XL 25 MG PO ×2 (09:36→20:17)
[2025-10-09] MEDS: DEPAKOTE (12 HR RELEASE) 500 MG PO (09:36)
[2025-10-09] MEDS: IMDUR (EXTENDED RELEASE) 30 MG PO (09:37)
[2025-10-09] MEDS: DIOVAN 80 MG PO (09:37)
[2025-10-09] MEDS: RISPERDAL 1 MG PO (09:37)
[2025-10-09] MEDS: PROTONIX 40 MG PO (09:37)
[2025-10-09] MEDS: HEPARIN 5000 UNITS SC ×2 (09:37→20:13)
[2025-10-09] MEDS: TYLENOL 650 MG PO ×2 (10:32→20:49)
[2025-10-09] MEDS: PULMICORT 0.25 MG INH ×2 (11:10→19:25)
[2025-10-09 11:32] LABS: Glucose - Point of Care 211 mg/dl (70-99)
[2025-10-09] MEDS: NOVOLOG FLEXPEN-LOW RESISTANCE 2 UNITS SC (12:45)
[2025-10-09] MEDS: OCEAN, SALINE MIST 1 SPRAYS NASAL ×3 (12:45→21:49)
[2025-10-09 15:00] VITALS: BP 129/65
[2025-10-09 16:34] LABS: Glucose - Point of Care 165 mg/dl (70-99)
[2025-10-09] MEDS: CRESTOR 20 MG PO (17:30)
[2025-10-09] MEDS: NOVOLOG FLEXPEN-LOW RESISTANCE 1 UNITS SC (17:30)
--- NOTE | 2025-10-09 18:13 | CM ---
IA completed with granddaughter with whom she lives with. Granddtr and her aunt provide assistance with toileting, bathing and dressing. Lives in a 2 level house with 4 steps at the entrance and 2 steps inside. Full BR is on 1st floor. No
insecurities identified. Confirmed PCP, Rx, insurance and drug coverage. IMM provided verbally over the phone to granddaughter. Blank copy (Romanian) left in room with family and copy placed on chart, Granddtr aware
PCP: Heber Holt
Rx: [facility]
Hx of VN possibly [facility]. Received PT, OT, [employer] and nursing services
HX of SNF at [facility]
On IV ABX at this time
Plan: TBD
[2025-10-09] MEDS: DUONEB 3 ML INH (19:25)
[2025-10-09] MEDS: COGENTIN 1 MG PO (20:13)
[2025-10-09] MEDS: ROCEPHIN 1000 MG IV (20:17)
[2025-10-09] MEDS: STERILE WATER FOR INJECTION 10 ML IV (20:17)
[2025-10-09] MEDS: DEPAKOTE ER (24 HR RELEASE) 500 MG PO (20:39)
[2025-10-09] MEDS: RISPERDAL 2 MG PO (20:39)
[2025-10-09 21:32] LABS: Glucose - Point of Care 181 mg/dl (70-99)
[2025-10-09 23:39] VITALS: BP 104/66
[2025-10-10] MEDS: SYNTHROID 25 MCG PO (05:52)
[2025-10-10 07:00] VITALS: BP 105/79
[2025-10-10 07:05] LABS: Glucose - Point of Care 114 mg/dl (70-99)
[2025-10-10 07:52] LABS: Hematocrit 33.1 % (37.0-47.0); Hemoglobin 10.9 g/dL (12.0-16.0); Mean Corp Hgb Conc. 32.9 g/dL (33.0-37.0); Mean Corpuscular Volume 83.0 fL (81.0-99.0); Nucleated Red Blood Cells % 0 %; Platelet Count 267 10^3/uL (130-400); Red Cell Dist. Width 13.1 % (11.5-14.5)
[2025-10-10 07:57] LABS: Blood Urea Nitrogen 12 mg/dl (7-17); Calcium 9.4 mg/dl (8.4-10.2); Carbon Dioxide 28 mmol/L (22-30); Chloride 98 mmol/L (98-107); Estimated Creatinine Clearance 26 ml/min; Glucose 107 mg/dl (70-99); Potassium 4.5 mmol/L (3.5-5.1); Sodium 132 mmol/L (135-145); eGFR 53.85
[2025-10-10] MEDS: DEPAKOTE (12 HR RELEASE) 500 MG PO (08:06)
[2025-10-10] MEDS: COGENTIN 1 MG PO ×2 (08:06→19:51)
[2025-10-10] MEDS: DIOVAN 80 MG PO (08:06)
[2025-10-10] MEDS: PROTONIX 40 MG PO (08:06)
[2025-10-10] MEDS: NOVOLOG FLEXPEN-LOW RESISTANCE SC ×2 (08:06→16:35)
[2025-10-10] MEDS: IMDUR (EXTENDED RELEASE) 30 MG PO (08:07)
[2025-10-10] MEDS: RISPERDAL 1 MG PO (08:07)
[2025-10-10] MEDS: OCEAN, SALINE MIST 1 SPRAYS NASAL ×4 (08:07→22:24)
[2025-10-10] MEDS: TOPROL XL 25 MG PO ×2 (08:07→19:51)
[2025-10-10] MEDS: HEPARIN 5000 UNITS SC ×2 (08:07→19:50)
[2025-10-10] MEDS: PULMICORT 0.25 MG INH ×2 (08:08→19:56)
[2025-10-10 09:26] VITALS: BP 119/73; BP 149/67; PULSE 79; O2SAT 95
--- NOTE | 2025-10-10 10:05 | PN.CDI ---
CDI
- -
CDI:
Physician Documentation Request
Admit Date: 10/08/25 21:39
Dear Doctor,
Patient admitted for UTI.
10/09 Hospitalist PN: 'MENDOZA on CKD: Creatinine 1.1 today, Creatinine was 1.3 yesterday and baseline around 1'
The purpose of this query is not to question medical judgement, but to ensure the accuracy of the conditions reported for your patient.
There is either a lack of clinical support for this condition in the current medical record, or there is a lack of recognized standard criteria to support the condition.
Criteria for MENDOZA*
1 Increase in serum creatinine by > or = to 0.3 mg/dL (> or = to 26.5 micromol/L) within 48 hours, OR
2 Increase in serum creatinine to > or = to 1.5 times baseline, which is known or presumed to have occurred within 7 days, OR
3 Urine volume < 0.5 nL/kg/hour for six hours
The request is for one of the following:
- Additional documentation to support the condition. Indicate if this is in lieu of what may be considered standard criteria, and/or support why the standard criteria may not be present for this patient.
- A more appropriate diagnosis, reflecting the patient's condition
- MENDOZA remains a known or suspected condition for this patient and is further supported by (include additional documentation in the medical record)
- MENDOZA has been ruled out and a more appropriate diagnosis for this patient's condition is .
- Other (please specify)
- Unable to determine
Use of terms such as suspected, likely, concern for, or probable (associated with a specific diagnosis that is being evaluated, monitored, or treated as if it exists) are acceptable and can be coded in the inpatient setting, when documented at the
time of discharge.
Thank you,
Shayy Berg RN, BSN
CDI Specialist
Available via [employer] text
Please use your independent medical judgment in providing your response.
--- NOTE | 2025-10-10 10:24 | W.PN.HOSP.TC ---
Addendum entered and electronically signed by Wenceslao Fields MD 10/10/25 12:04:
Ruled out MENDOZA
Original Note:
Today's Communication/Plan
-
IV antibiotics. Majano. Cogentin.
Assessment / Plan
Assessment / Plan
Physical exam:
General: Acute and chronically ill
HEENT: Normocephalic, mild right shoulder and arm discomfort but normal range of motion, atraumatic and Moist Mucous Membranes
Respiratory: Clear to Auscultation; Negative Wheezes, Rales or Rhonchi
Cardiac: Regular Rhythm and S1/S2
GI: Soft, Nontender and Nondistended
Musculoskeletal: No Clubbing, No Cyanosis and No Edema
Neuro: Awake, Alert and oriented, generalized weakness, mild rigidity bradykinesia and resting tremors present with mild improvement.
Psych: Calm, limited judgment and insight. Cognitive deficit
A/P:
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
Started on Cogentin
PT OT eval for discharge disposition
Discussed with granddaughter over the phone today
Acute urinary retention:
Continue Majano catheter
UTI:
Continue IV ceftriaxone and will switch to oral over the next 24 to 48 hours
Follow-up urine culture
CKD stage IIIa:
Ruled out MENDOZA
Creatinine 1 today
URI:
Nasal saline
Pulmicort twice daily neb
DuoNeb as needed
Seen chest x-ray and no acute chest pathology
Shoulder and musculoskeletal pain:
Continue Tylenol as needed
Add Toradol as needed as well
Hyponatremia:
Mild and chronic
Continue to monitor
Schizophrenia:
On Depakote 500 mg twice a day and risperidone 1 mg morning and 2 mg in the evening
Hypertension:
Continue losartan 80 mg p.o. daily and metoprolol succinate 25 mg twice a day
Hyperlipidemia:
Continue home statin
Diabetes mellitus type 2:
Continue insulin sliding scale
Holding oral hypoglycemic
Hemoglobin A1c 6.9
Hypothyroidism:
Continue levothyroxine 25 mcg p.o. daily
GERD:
Continue oral PPI
Asthma:
No evidence of exacerbation
Hold on systemic steroids
Anemia:
No signs of bleeding
Hemoglobin at baseline
Continue to monitor hemoglobin
DVT prophylaxis:
Heparin SQ
CODE STATUS:
Full code
Total time spent on today's encounter was 37 minutes which included time spent in counseling the patient/family regarding diagnosis and treatment plan as listed above, goals of care, and symptom management. Case was discussed with nursing staff,
specialists, and care coordinators/case management. All labs and imaging personally reviewed by me. Remainder the time spent in detailed review of previous records, lab data, imaging, and other medical provider documentation.
Anticipated Discharge: 24 - 48 hours
Subjective/Interval History
-
Date of Service: October 10, 2025
Patient feels better today. Less weak and less tremors. Feels better in terms of nose stuffiness. No shortness of breath. Remains afebrile.
Objective Data
-
Labs:
Laboratory Results
10/10/25
06:51
WBC 6.6
Hgb 10.9 L
Hct 33.1 L
Plt Count 267
Sodium 132 L
Potassium 4.5
Chloride 98
Carbon Dioxide 28
BUN 12
Creatinine 1.0
Glucose 107 H
Calcium 9.4
Vital Signs:
Vital Signs
Temp Pulse Resp BP Pulse Ox
99.8 F 76 16 105/79 100
10/10/25 07:00 10/10/25 08:21 10/10/25 08:21 10/10/25 07:00 10/10/25 08:21
I&O
10/09/25 10/10/25 10/11/25
06:59 06:59 06:59
Intake Total 360 / 360
Output Total 1000 / 1000 3850 / 3850
Balance -1000 / -1000 -3490 / -3490
[2025-10-10 11:58] LABS: Glucose - Point of Care 165 mg/dl (70-99)
[2025-10-10] MEDS: NOVOLOG FLEXPEN-LOW RESISTANCE 1 UNITS SC (12:21)
[2025-10-10 15:00] VITALS: BP 128/75
[2025-10-10 16:30] LABS: Glucose - Point of Care 137 mg/dl (70-99)
[2025-10-10] MEDS: CRESTOR 20 MG PO (17:32)
[2025-10-10] MEDS: ROCEPHIN 1000 MG IV (19:50)
[2025-10-10] MEDS: STERILE WATER FOR INJECTION 10 ML IV (19:50)
[2025-10-10] MEDS: DEPAKOTE ER (24 HR RELEASE) 500 MG PO (19:51)
[2025-10-10] MEDS: RISPERDAL 2 MG PO (19:51)
[2025-10-10] MEDS: TYLENOL 650 MG PO (20:07)
[2025-10-10 21:17] LABS: Glucose - Point of Care 133 mg/dl (70-99)
[2025-10-10 23:03] VITALS: BP 116/47
[2025-10-11] MEDS: SYNTHROID 25 MCG PO (06:05)
[2025-10-11 07:06] VITALS: BP 156/56
[2025-10-11] MEDS: PULMICORT 0.25 MG INH (07:14)
[2025-10-11 07:59] LABS: Glucose - Point of Care 120 mg/dl (70-99)
[2025-10-11] MEDS: IMDUR (EXTENDED RELEASE) 30 MG PO (09:16)
[2025-10-11] MEDS: DIOVAN 80 MG PO (09:16)
[2025-10-11] MEDS: TOPROL XL 25 MG PO (09:16)
[2025-10-11] MEDS: NOVOLOG FLEXPEN-LOW RESISTANCE SC ×2 (09:16→13:33)
[2025-10-11] MEDS: PROTONIX 40 MG PO (09:17)
[2025-10-11] MEDS: COGENTIN 1 MG PO (09:17)
[2025-10-11] MEDS: OCEAN, SALINE MIST 1 SPRAYS NASAL (09:17)
[2025-10-11] MEDS: RISPERDAL 1 MG PO (09:18)
[2025-10-11] MEDS: DEPAKOTE (12 HR RELEASE) 500 MG PO (09:18)
[2025-10-11] MEDS: HEPARIN 5000 UNITS SC (09:18)
[2025-10-11] MEDS: FLUSH (NSS) 1 FLUSH IV (09:21)
--- NOTE | 2025-10-11 11:02 | W.PN.HOSP.TC ---
Today's Communication/Plan
-
Discharge planning today
Assessment / Plan
Assessment / Plan
Physical exam:
General: Chronically ill
HEENT: Normocephalic, mild right shoulder and arm discomfort but normal range of motion, atraumatic and Moist Mucous Membranes
Respiratory: Clear to Auscultation; Negative Wheezes, Rales or Rhonchi
Cardiac: Regular Rhythm and S1/S2
GI: Soft, Nontender and Nondistended
Musculoskeletal: No Clubbing, No Cyanosis and No Edema
Neuro: Awake, Alert and oriented, generalized weakness, mild rigidity bradykinesia and resting tremors present with mild improvement.
Psych: Calm, limited judgment and insight. Cognitive deficit
A/P:
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
Started on Cogentin
PT OT eval for discharge disposition
Discussed with granddaughter over the phone today
Acute urinary retention:
Continue Majano catheter
UTI:
Switch to oral antibiotics today
Follow-up urine culture
CKD stage IIIa:
Ruled out MENDOZA
Creatinine 1 today
URI:
Nasal saline
Pulmicort twice daily neb
DuoNeb as needed
Seen chest x-ray and no acute chest pathology
Shoulder and musculoskeletal pain:
Continue Tylenol as needed
Add Toradol as needed as well
Hyponatremia:
Mild and chronic
Continue to monitor
Schizophrenia:
On Depakote 500 mg twice a day and risperidone 1 mg morning and 2 mg in the evening
Hypertension:
Continue losartan 80 mg p.o. daily and metoprolol succinate 25 mg twice a day
Hyperlipidemia:
Continue home statin
Diabetes mellitus type 2:
Continue insulin sliding scale
Holding oral hypoglycemic
Hemoglobin A1c 6.9
Hypothyroidism:
Continue levothyroxine 25 mcg p.o. daily
GERD:
Continue oral PPI
Asthma:
No evidence of exacerbation
Hold on systemic steroids
Anemia:
No signs of bleeding
Hemoglobin at baseline
Continue to monitor hemoglobin
DVT prophylaxis:
Heparin SQ
CODE STATUS:
Full code
Total time spent on today's encounter was 35 minutes which included time spent in counseling the patient/family regarding diagnosis and treatment plan as listed above, goals of care, and symptom management. Case was discussed with nursing staff,
specialists, and care coordinators/case management. All labs and imaging personally reviewed by me. Remainder the time spent in detailed review of previous records, lab data, imaging, and other medical provider documentation.
Anticipated Discharge: Today
Subjective/Interval History
-
Date of Service: October 11, 2025
No new complaints. Feeling better overall
Objective Data
-
Vital Signs:
Vital Signs
Temp Pulse Resp BP Pulse Ox
98.5 F 62 16 156/56 93
10/11/25 07:06 10/11/25 07:16 10/11/25 07:16 10/11/25 07:06 10/11/25 07:16
I&O
10/10/25 10/11/25 10/12/25
06:59 06:59 06:59
Intake Total 360 / 360 100 / 100
Output Total 3850 / 3850 3325 / 3325
Balance -3490 / -3490 -3225 / -3225
--- NOTE | 2025-10-11 11:57 | W.DCSUMMARY ---
Discharge Summary
Discharge Data
Date of Admission: 10/08/25
Date of Discharge: 10/11/25
Total time spent discharging patient (in min): 35
-
Pending Results: No
Hospital Course
Patient 89 years old female with multiple comorbidities came into the hospital with generalized weakness and fall. Patient was found to have parkinsonism drug-induced and she was started on Cogentin; she was also found to have an urinary tract
infection with E. coli in the urine and she was given IV antibiotic and switched to oral antibiotics upon discharge according to sensitivities. Patient also was found to have urinary retention prior to admission and she was placed a Majano catheter.
It looks that she has removed Majano catheter previously but she is willing to keep this Majano catheter in place now and will have her follow-up with urology as outpatient. Patient did well throughout the hospital stay. She participated with PT OT
and recommended skilled rehab versus home PT. Family declined rehab at the moment and would like to take her home with home health. Patient is hemodynamically stable and afebrile. She will be discharged in relatively stable condition today.
Discharge duration: 35 minutes
Discharge Plan
-
Patient Disposition: Home with Home Care
Discharge Diagnosis/Procedures: Parkinsonism drug-induced. Acute urinary retention. Urinary tract infection. Chronic kidney disease stage IIIa. Dementia.
Diet: Regular
Activity: As tolerated
Blood Work: Please PCP to order CBC, BMP within 1 week
Referrals:
Raj Holt MD [Family Provider, Family Practice] - in less than 1 week
Diogenes Glover MD [Active, Urology] - in one to two weeks
Referral Note: Known to you-Urinary retention.
Prescriptions:
New
cephalexin 500 mg capsule
500 mg PO Q8H 5 Days Qty: 15 0RF
benztropine 1 mg Tablet
1 mg PO BID 30 Days Qty: 60 0RF
Continued
insulin glargine [Lantus U-100 Insulin] 100 UNITS/1 ML solution
10 units SC HS
Patient Comments:
hold less than 150
divalproex 500 MG tablet,delayed release (DR/EC)
500 mg PO DAILY
risperidone 2 MG tablet
2 mg PO HS
metformin 1,000 MG tablet
1,000 mg PO BID@0800,1700
risperidone 1 MG tablet
1 mg PO DAILY
levothyroxine 25 MCG tablet
25 mcg PO DAILY AT 0700 Qty: 30 0RF
pantoprazole [Protonix] 40 mg tablet,delayed release (DR/EC)
40 mg PO DAILY Qty: 30 0RF
furosemide 40 mg Tablet
40 mg PO DAILY 30 Days Qty: 30 0RF
aspirin 81 mg Tablet,Chewable
81 mg PO DAILY 30 Days Qty: 30 0RF
rosuvastatin 20 mg Tablet
20 mg PO QPM 30 Days Qty: 30 0RF
isosorbide mononitrate 30 mg Tablet Extended Release 24 Hr
30 mg PO DAILY 30 Days Qty: 30 0RF
valsartan 80 mg Tablet
80 mg PO DAILY 30 Days Qty: 30 0RF
metoprolol succinate 25 mg Tablet Extended Release 24 Hr
25 mg PO BID 30 Days Qty: 60 0RF
divalproex [Depakote ER] 500 mg Tablet Extended Release 24 Hr
500 mg PO HS
Jardiance 10 mg Tablet
10 mg PO DAILY
fluticasone propion-salmeterol [Advair Diskus] 100-50 mcg/dose Blister With Device
1 inh INHALATION BID
ferrous sulfate [FeroSul] 325 mg (65 mg iron) tablet
325 mg PO DAILY
Discharge Orders:
Discharge Patient (As Directed); Ordered 10/11/25
Ordered By: Wenceslao Fields
Discharge Date and Time
Discharge Date/Time: 10/11/25 13:44
Print Language: URDU
[2025-10-11] MEDS: KEFLEX 250 MG PO (12:04)
--- NOTE | 2025-10-11 12:46 | CM ---
Addendum entered by Kimmie Boateng 10/11/25 13:02:
Spoke with jared about VN is the point of contact; she is agreeable. She was provided with VN choices of [facility], [facility] and [facility]; [facility] chosen. Referral placed with liaison, Gaye.
Grand -dtr states a khmer speaker is not necessary, she can provide translation for pt and the Aunt who is the caregiver.
Original Note:
Pt is discharged to home, PT rec VN. Left message with the Granddaughter Lory to please call me to discuss referrals.
[2025-10-11 12:47] VITALS: BP 101/42
[2025-10-11 13:16] LABS: Glucose - Point of Care 151 mg/dl (70-99)
[2025-10-11] MEDS: OCEAN, SALINE MIST NASAL (13:34)
--- NOTE | 2025-10-11 14:45 | VNURNOTE ---
Patient DC'ed from hospital before liaison could meet at bedside. [facility] primary contact, Lory. Discussed HH nurse/therapy, visits, schedule. Granddaughter is agreeable and understands that visits at home will be 2-3 x per week
to assess and teach medical management.
Granddaughter is agreeable to [facility]- they can see pt on SUN. Granddaughter is aware that they will contact them for start of care before visit for SOC on Sun.
[facility] referral completed in [facility]. Confirmed with [facility] they will accept.
== END 2025-10-11 13:44 | disposition home health service (06) | DRG 690 ==
LOC: 4 EAST ACU 21:39
PROVIDERS: ADMITTING PHYSICIAN Hospitalist; ATTENDING PHYSICIAN Hospitalist; EMERGENCY PHYSICIAN Emergency Medicine; FAMILY PHYSICIAN Family Medicine
DX: N39.0 Urinary tract infection, site not specified (principal); F02.83 Dementia in other diseases classified elsewhere, unspecified severity, with mood disturbance; E87.1 Hypo-osmolality and hyponatremia; N18.31 Chronic kidney disease, stage 3a; I12.9 Hypertensive chronic kidney disease with stage 1 through stage 4 chronic kidney disease, or unspecified chronic kidney disease; F32.A Depression, unspecified; G20.C Parkinsonism, unspecified; F20.9 Schizophrenia, unspecified; E03.9 Hypothyroidism, unspecified; J45.909 Unspecified asthma, uncomplicated; K21.9 Gastro-esophageal reflux disease without esophagitis; D64.9 Anemia, unspecified; Z87.440 Personal history of urinary (tract) infections; Z79.84 Long term (current) use of oral hypoglycemic drugs; Z79.4 Long term (current) use of insulin; Z79.899 Other long term (current) drug therapy; Z79.82 Long term (current) use of aspirin; Z79.51 Long term (current) use of inhaled steroids; Z79.890 Hormone replacement therapy; B96.20 Unspecified Escherichia coli [E. coli] as the cause of diseases classified elsewhere; E11.22 Type 2 diabetes mellitus with diabetic chronic kidney disease; E11.65 Type 2 diabetes mellitus with hyperglycemia; E78.00 Pure hypercholesterolemia, unspecified; G30.9 Alzheimer's disease, unspecified; Z11.52 Encounter for screening for COVID-19
CPT/HCPCS: 51702; 51798; 71046; 80048; 80053; 81003; 81015; 82962; 83036; 84484; 85025; 85610; 87077; 87086; 87186; 87502; 87811; 93005; 94640; 96374; 97163; 97167; 97530; 97535; 99285